=== PATIENT | female | born 2005 | race Caucasian/White ===

== ENCOUNTER 2024-10-31 08:29 | Inpatient (IN) ==
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
--- NOTE | 2024-10-31 08:39 | Emergency Department Note ---
Impression & Plan Acute hypoxic respiratory failure, Asthma with status asthmaticus, Cough ED Provider Note NAME: VASILIY RAJAN AGE: 19 SEX: F : 2005 ARRIVES VIA: Ambulance INFORMANT: Patient ED PROVIDER(S): Ziggy Lai DO CHIEF COMPLAINT: Shortness of breath HPI: Patient is a 19-year-old female with a past medical history of asthma, ADHD, borderline personality disorder, ulcerative colitis and cocaine abuse that presents to the ER for cough, congestion, shortness of breath which started last night. She notes it significantly worsened last night. She does have a history of asthma but does not have any nebs or inhalers at home as she has been having insurance issues. Denies any belly pain, nausea, vomiting or diarrhea. No dysuria, urgency or frequency. No recent trips, travel, coughing up blood, history of blood clots, history of clotting disorders or control. No recent surgery. Per EMS when they picked her up she was 80% on room air. ADDITIONAL HISTORY OBTAINED: Per HPI Chronic Medical/Social Conditions Affecting Care: Per HPI PAST MEDICAL HISTORY:See Below PAST SURGICAL HISTORY:See Below FAMILY HISTORY:See Below SOCIAL HISTORY:See Below HOME MEDICATIONS:See Below ALLERGIES:See Below VITALS:See Below PHYSICAL EXAMINATION: GENERAL: Sitting up in bed, alert, ill-appearing only able to speak in 2 word sentences, dyspneic EYE EXAM: normal conjunctiva. OROPHARYNX: no exudate, no erythema, lips, buccal mucosa, and tongue normal and mucous membranes are moist NECK: supple, no nuchal rigidity, no adenopathy, non-tender LUNGS: Wheezing bilaterally with poor air movement. Normal chest wall mechanics HEART: no murmurs, S1 normal and S2 normal ABDOMEN: abdomen soft, non-tender, normo-active bowel sounds, no masses, no rebound or guarding. UPPER EXTREMITIES: upper extremities are grossly normal. LOWER EXTREMITIES: No pitting edema. Calves are equal bilaterally NEURO EXAM: Normal sensorium, cranial nerves II-XII grossly intact, normal speech, no gross weakness of arms, no gross weakness of legs. MEDICAL DECISION MAKING: Patient is a 19-year-old female who presents ER for the above-stated complaint. IV was established and blood work was obtained. Upon arrival she was found to be hypoxic p.o. as well as EMS that she was 80% for EMS. Labs showed a leukocytosis 17,000. No significant anemia. BMP along with LFTs bilirubin and troponin was negative. Lipase was normal. She was placed on 4 L nasal cannula while here. Viral panel was positive for enterovirus. Chest x-ray was clean. She was given an hour-long DuoNeb treatment and IV Solu-Medrol. She felt significantly better. She was able to talk in full sentences at this time. Respiratory rate improved and she felt much more relaxed. She still remained on nasal cannula. Case was discussed with the hospitalist for further evaluation management and treatment. Consults/Care Managements Discussions: Per [facility] Triage Nursing notes reviewed. Limited review of prior medical records performed Vital Signs: reviewed and remarkable for hypoxic Differential diagnosis: Differential diagnoses includes but is not limited to pneumonia, bronchitis, COPD/Asthma exacerbation, pneumothorax, pulmonary embolism, congestive heart failure, acute coronary syndrome ER treatment provided: See below Diagnostics interpreted by me include EKG and cardiac monitoring as listed below: -Cardiac Monitoring: An order was placed for continuous cardiac monitoring. The monitor shows a rate of 101 with sinus rhythm. -ECG: Sinus rhythm rate 93 Normal axis No PVCs QTc 474 -Laboratory studies:Interpreted by me as stated above in MDM and shown below. Imaging studies: Xrays: As interpreted by me: Portable AP upright 1 view of the chest shows no focal infiltrate CTs show: None Procedures: None Critical Care: I have personally spent 45 minutes of critical care time in the direct management of this patient. This includes bedside care, interpretation of diagnostic studies, and testing, discussion with consultants, patient, and family members, and other required patient management activities. This 45 minutes is in excess of all separately billable procedures. Past Med/Surg History Problem List (Updated 10/31/24 @ 12:08 by Ziggy Lai DO) Cough (Acute) Asthma with status asthmaticus (Acute) Acute hypoxic respiratory failure (Acute) Asthma exacerbation Eosinophilia Laryngitis Cocaine abuse Asthma Current every day vaping Depression ADHD Borderline personality disorder Ulcerative colitis Syncopal episodes Medical History Asthma Surgical History History of tonsillectomy History of colonoscopy Family History Grandmother (Paternal) Cancer Breast cancer Grandmother (Maternal) Diabetes Denies family history of Ovarian cancer Prostate cancer Myocardial infarction Lung cancer Colorectal cancer Social History Smoking Status: Current every day smoker Tobacco Type: Cigarettes and E-cigarettes / Vaping Second Hand Exposure: Yes; Do You Dip or Chew Tobacco: No; Hx Alcohol Use: Yes Alcohol type: wine and hard liquor Alcohol Intake Frequency: Monthly or Less Hx Substance Use: Yes Non-Prescribed Medications: Marijuana Preferred Language: Slovak Communication Ability: Effective Visual Impairment: Limited Hearing Ability: Normal marital status: Single Current Living Situation Comment: roommates current occupational status: employed current occupation: [employer] How many Children do You have: 0 Feels Safe at Home: Yes Childhood Exposure to Second-Hand Smoke: Yes caffeine: Yes Dental Care, Regularly: No Physical Activity Frequency: 1-2 Times per Week Seatbelt Use: always Sunscreen Use: Yes Assistive Devices: Contacts and Glasses Allergies Allergies Allergy/AdvReac Type Severity Reaction Status Date / Time perfume Allergy Unknown Sneezing Unverified 04/25/24 08:50 No Known Drug Allergies Allergy Verified 03/23/24 16:13 Home Meds Home Medications Medication Instructions Recorded Confirmed aripiprazole 10 mg tablet (Abilify) 10 mg PO QPM 08/13/23 10/31/24 escitalopram oxalate 10 mg tablet 10 mg PO QPM 08/13/23 10/31/24 (Lexapro) mesalamine 1.2 gram tablet,delayed 2.4 g PO QAM 09/16/23 10/31/24 release lisdexamfetamine 70 mg capsule 70 mg PO QAM 04/25/24 10/31/24 (Vyvanse) Previous Rx's Medication Instructions Recorded albuterol sulfate 90 mcg/actuation 1 inh inhalation Q4H PRN shortness 09/20/24 aerosol inhaler of breath or wheezing #8.5 grams Results & Data (ED) Vital Signs Vital Signs - 24 hr 10/31/24 08:36 10/31/24 08:36 10/31/24 08:37 Pulse Rate 108 H Pulse Rate from SpO2 Sensor Respiratory Rate 34 H Respiratory Effort / Characteristics Labored Labored Respiratory Pattern Rapid/Shallow Blood Pressure 129/82 Blood Pressure Mean 97 Pulse Oximetry 89 L 89 L Oxygen Delivery Method Room Air Room Air Oxygen Flow Rate Sepsis Recent Fever Within 48 Hours No Sepsis New/Unexplained Change in Mental Status No Sepsis Action Taken by Nursing No Action Required Oxygen Flow Rate - Titration 3 Pulse Oximetry Post Tiitration 91 10/31/24 08:46 10/31/24 08:53 10/31/24 09:44 Pulse Rate 99 H Pulse Rate from SpO2 Sensor Respiratory Rate Respiratory Effort / Characteristics Respiratory Pattern Blood Pressure Blood Pressure Mean Pulse Oximetry 91 88 L Oxygen Delivery Method Nasal Cannula Room Air Oxygen Flow Rate 3 Sepsis Recent Fever Within 48 Hours Sepsis New/Unexplained Change in Mental Status Sepsis Action Taken by Nursing Oxygen Flow Rate - Titration 6 Pulse Oximetry Post Tiitration 98 10/31/24 10:03 10/31/24 10:14 10/31/24 10:33 Pulse Rate Pulse Rate from SpO2 Sensor Respiratory Rate Respiratory Effort / Characteristics Respiratory Pattern Blood Pressure Blood Pressure Mean Pulse Oximetry 95 94 89 L Oxygen Delivery Method Nebulizer Nasal Cannula Nasal Cannula Oxygen Flow Rate 6 3 3 Sepsis Recent Fever Within 48 Hours Sepsis New/Unexplained Change in Mental Status Sepsis Action Taken by Nursing Oxygen Flow Rate - Titration 3 5 Pulse Oximetry Post Tiitration 93 10/31/24 11:00 10/31/24 11:30 Pulse Rate 103 H 98 H Pulse Rate from SpO2 Sensor 102 H 101 H Respiratory Rate 18 23 Respiratory Effort / Characteristics Respiratory Pattern Blood Pressure 104/72 103/79 Blood Pressure Mean 82 87 Pulse Oximetry 92 95 Oxygen Delivery Method Oxymask Oxymask Oxygen Flow Rate 6 6 Sepsis Recent Fever Within 48 Hours Sepsis New/Unexplained Change in Mental Status Sepsis Action Taken by Nursing Oxygen Flow Rate - Titration Pulse Oximetry Post Tiitration Laboratory Data 10/31/24 08:45 10/31/24 08:45 Lab Results 10/31/24 10/31/24 Range/Units 08:45 08:50 WBC 17.34 H (4.8-10.8) K/ul RBC 5.28 (4.20-5.40) M/uL Hgb 15.5 (12.0-16.0) g/dl Hct 46.2 (37.0-47.0) % MCV 87.5 (80.0-100.0) fL MCH 29.4 (25.0-34.0) pg MCHC 33.5 (32.0-36.0) g/dL RDW Std Deviation 39.9 (36.4-46.3) fL RDW Coeff of Carlos 12.4 (11.5-14.5) % Plt Count 364 (130-400) K/uL MPV 10.0 (9.4-12.4) fL Immature Gran % (Auto) 0.5 % Neut % (Auto) 59.9 % Lymph % (Auto) 23.8 % [place]lin % (Auto) 6.7 % Eos % (Auto) 8.3 % Baso % (Auto) 0.8 % Neut # (Auto) 10.38 H (1.40-6.50) K/uL Lymph # (Auto) 4.13 H (1.20-3.40) K/uL [place] # (Auto) 1.17 H (0.11-0.59) K/uL Eos # (Auto) 1.44 H (0.00-0.50) K/uL Baso # (Auto) 0.14 (0.00-0.20) K/uL Immature Gran # (Auto) 0.08 (0.01-0.20) K/uL Sodium 140 (136-145) mmol/L Potassium 3.9 (3.5-5.1) mmol/L Chloride 105 (98-107) mmol/L Carbon Dioxide 29 (21-32) mmol/L Anion Gap 6 (3-11) BUN 12 (6-23) mg/dl Creatinine 0.83 (0.6-1.2) mg/dl Est Cr Clr Drug Dosing 113.7 ml/min eGFR 102.79 BUN/Creatinine Ratio 14.5 (10-20) Glucose 125 H (70-99(Fasting)) mg/dl Calcium 9.5 (8.6-10.3) mg/dl Total Bilirubin 0.6 (0.2-1.0) mg/dl AST 24 (13-39) U/L ALT 18 (7-52) U/L Alkaline Phosphatase 97 (34-104) U/L Troponin I High Sens 4.0 (0-14) pg/ml Total Protein 7.9 (6.0-8.3) gm/dl Albumin 4.6 (3.4-5.0) gm/dl Globulin 3.3 (2.5-4.0) gm/dl Albumin/Globulin Ratio 1.4 (0.9-2) Lipase 8 L (11-82) U/L Adenovirus (PCR) Not Detected (NotDetected) B. pertussis DNA (PCR) Not Detected (NotDetected) B.parapertussis DNA PCR Not Detected (NotDetected) C. pneumoniae DNA (PCR) Not Detected (NotDetected) Coronavirus OC43 (PCR) Not Detected (NotDetected) Coronavirus HKU1 (PCR) Not Detected (NotDetected) Coronavirus 229E (PCR) Not Detected (NotDetected) SARS-CoV-2 (PCR) Not Detected (NotDetected) Coronavirus NL63 (PCR) Not Detected (NotDetected) Human Metapneumovir PCR Not Detected (NotDetected) Influenza Type A (PCR) Not Detected (NotDetected) Influenza Type B (PCR) Not Detected (NotDetected) M. pneumoniae (PCR) Not Detected (NotDetected) Parainfluenza 1 (PCR) Not Detected (NotDetected) Parainfluenza 2 (PCR) Not Detected (NotDetected) Parainfluenza 3 (PCR) Not Detected (NotDetected) Parainfluenza 4 (PCR) Not Detected (NotDetected) RSV (PCR) Not Detected (NotDetected) Entero/Rhino (PCR) DETECTED A (NotDetected) Administered Medications Discontinued Medications Albuterol (Albut/Ipratrop 3mg/0.5mg Neb 3 Ml Vial) 12 ml NEB ONE ONE; Protocol Stop: 10/31/24 08:37 Last Admin: 10/31/24 08:53 Dose: 12 ml Documented By: DREW Methylprednisolone (Methylprednisolone 125 Mg/2 Ml Vial) 60 mg IV NOW STA Stop: 10/31/24 08:37 Last Admin: 10/31/24 08:53 Dose: 60 mg Documented By: DRWE Imaging Data Radiologist's Impression: Chest X-Ray 10/31/24 08:36 EXAM: Radiograph of the Chest 1 View INDICATION: Chest pain TECHNIQUE: Frontal view of the chest. COMPARISON: 04/25/2024 FINDINGS: Lungs and pleural spaces: No consolidation or pulmonary edema. No pleural effusion or pneumothorax. Heart: Shape and configuration within normal limits allowing for technique. Mediastinum: Normal contour. Bones/joints: No fracture, erosion or dislocation. Soft tissues: No abnormality noted. Nipple rings noted. Upper abdomen: No abnormality noted. IMPRESSION: No abnormality noted. ACT 112: N/A Electronically signed by Edwina Mendoza 10-31-2024 09:57 AM Discharge Plan Visit Data Chief Complaint: Asthma Stated Complaint: RESP. DISTRESS ED Provider: Ziggy Lai Discharge Problem: Acute hypoxic respiratory failure, Asthma with status asthmaticus, Cough Forms Stand Alone Forms: [employer] Prescriptions Prescriptions: No Action albuterol sulfate 90 mcg/actuation HFA aerosol inhaler 1 inh inhalation Q4H PRN (Reason: shortness of breath or wheezing) Qty: 8.5 0RF aripiprazole [Abilify] 10 mg tablet 10 mg PO QPM escitalopram oxalate [Lexapro] 10 mg tablet 10 mg PO QPM lisdexamfetamine [Vyvanse] 70 mg Capsule 70 mg PO QAM mesalamine 1.2 gram Tablet,Delayed Release (Dr/Ec) 2.4 g PO QAM Referrals Referrals: Walter Parra CRNP [Primary Care Provider] - Discharge Problem: Asthma with status asthmaticus Qualifiers: Asthma severity: mild Asthma persistence: unspecified Qualified Code(s): J 45.902 - Unspecified asthma with status asthmaticus Cough Qualifiers: Cough type: unspecified Qualified Code(s): R05.9 - Cough, unspecified
[2024-10-31] MEDS: ALBUT/IPRATROP 3MG/0.5MG NEB 3 ML VIAL NEB ONE (08:53)
[2024-10-31] MEDS: methylPREDNISolone 125 MG/2 ML VIAL IV STA (08:53)
[2024-10-31 08:57] LABS: Basophils # (auto) 0.14 K/uL (0.00-0.20); Basophils % (auto) 0.8 %; Eosinophils # (auto) 1.44 K/uL (0.00-0.50); Eosinophils % (auto) 8.3 %; Hematocrit (blood only) 46.2 % (37.0-47.0); Hemoglobin 15.5 g/dl (12.0-16.0); Immature Granulocytes # (auto) 0.08 K/uL (0.01-0.20); Immature Granulocytes % (auto) 0.5 %; Lymphocytes # (auto) 4.13 K/uL (1.20-3.40); Lymphocytes % (auto) 23.8 %; Mean Corpuscular Hemoglobin 29.4 pg (25.0-34.0); Mean Corpuscular Hgb Conc 33.5 g/dL (32.0-36.0); Mean Corpuscular Volume 87.5 fL (80.0-100.0); Monocytes # (auto) 1.17 K/uL (0.11-0.59); Monocytes % (auto) 6.7 %; Neutrophils # (auto) 10.38 K/uL (1.40-6.50); Neutrophils % (auto) 59.9 %; Platelet Count 364 K/uL (130-400); RDW Coefficient of Variation 12.4 % (11.5-14.5); RDW Standard Deviation 39.9 fL (36.4-46.3); Red Blood Count 5.28 M/uL (4.20-5.40); White Blood Count 17.34 K/ul (4.8-10.8)
[2024-10-31 09:14] LABS: Albumin Globulin Ratio 1.4 (0.9-2); Albumin Level 4.6 gm/dl (3.4-5.0); BUN Creatinine Ratio 14.5 (10-20); Bilirubin,Total 0.6 mg/dl (0.2-1.0); Calcium 9.5 mg/dl (8.6-10.3); Creatinine Clr Calc Pharmacy 113.7 ml/min; Globulin 3.3 gm/dl (2.5-4.0); Potassium 3.9 mmol/L (3.5-5.1); Total Protein 7.9 gm/dl (6.0-8.3)
[2024-10-31 09:53] LABS: Adenovirus PCR Not Detected (NotDetected); Bordetella parapertussis PCR Not Detected (NotDetected); Bordetella pertussis PCR Not Detected (NotDetected); Chlamydia pneumoniae PCR Not Detected (NotDetected); Coronavirus 229E PCR Not Detected (NotDetected); Coronavirus CoV-2 (COVID19)PCR Not Detected (NotDetected); Coronavirus HKU1 PCR Not Detected (NotDetected); Coronavirus NL63 PCR Not Detected (NotDetected); Coronavirus OC43PCR Not Detected (NotDetected); Human Metapneumovirus PCR Not Detected (NotDetected); Influenza A PCR Not Detected (NotDetected); Influenza B PCR Not Detected (NotDetected); Mycoplasma pneumoniae PCR Not Detected (NotDetected); Parainfluenza Virus 1 PCR Not Detected (NotDetected); Parainfluenza Virus 2 PCR Not Detected (NotDetected); Parainfluenza Virus 3 PCR Not Detected (NotDetected); Parainfluenza Virus 4 PCR Not Detected (NotDetected); Respiratory Syncytial VirusPCR Not Detected (NotDetected); Rhinovirus/Enterovirus PCR DETECTED (NotDetected)
--- NOTE | 2024-10-31 09:57 | XRay Report ---
EXAM: Radiograph of the Chest 1 View INDICATION: Chest pain TECHNIQUE: Frontal view of the chest. COMPARISON: 04/25/2024 FINDINGS: Lungs and pleural spaces: No consolidation or pulmonary edema. No pleural effusion or pneumothorax. Heart: Shape and configuration within normal limits allowing for technique. Mediastinum: Normal contour. Bones/joints: No fracture, erosion or dislocation. Soft tissues: No abnormality noted. Nipple rings noted. Upper abdomen: No abnormality noted. IMPRESSION: No abnormality noted. ACT 112: N/A Electronically signed by Edwina Mendoza 10-31-2024 09:57 AM
--- NOTE | 2024-10-31 10:10 | History & Physical Report ---
Date of Service October 31, 2024 Assessment & Plan (1) Asthma exacerbation: Plan: * Patient with history of childhood asthma that has persisted into adulthood. No prior hospitalizations or mechanical ventilation for asthma * Spirometry 05/18/2024 with mild obstructive lung dysfunction. FVC 4.50 L 111%, FEV1 3.08 L 87%, FEV1/FVC 68% * Patient does vape THC. * Received hour-long nebulizer treatment as well as supplemental oxygen as well as steroids with some improvement but persistent global bronchospasm * Will continue with IV steroids 60 mg daily * Magnesium 1 g IV now x 1 * No indication for antibiotics at this time * Add montelukast p.o. daily and Advair discus twice daily while inpatient * Continue with DuoNebs every 6 hours and as needed * Recommend discharging on Advair discus 115/21 2 puffs daily as well as montelukast (Singulair) 10 mg p.o. daily * Follow-up with pulmonary on discharge (2) Enterovirus infection: Plan: * With sepsis, POA with tachycardia, hypoxemia, leukocytosis. Chest x-ray negative for pneumonia * With asthma exacerbation being treated as noted above (3) Eosinophilia: Plan: * This is chronic. Eosinophil count in April 2024 was 1030 * No evidence of pneumonia on examination or on x-ray * Patient with seasonal allergies which could explain her increased eosinophils * Will trend CBC with differential while inpatient (4) Laryngitis: Plan: * Laryngoscopy with ENT on 07/28/2024 with inflammation suspected be secondary to smoking and vaping * No stridor on examination * Patient will be on steroids daily for asthma exacerbation * Follow-up with ENT on discharge (5) Cocaine abuse: Plan: * Last used 2 to 3 weeks ago. * Encouraged abstinence * Follow on telemetry while inpatient (6) Current every day vaping: Plan: * Patient with marijuana card and vaping THC. Discussed importance of not introducing irritants to the pulmonary system. Patient reports she understands and that she has been using Gummies lately. * Continue complete abstinence of all inhaled products including cigarettes and vaping. (7) Ulcerative colitis: Plan: * Continue mesalamine, no acute issues (8) ADHD: Plan: * No acute issues, continue Vyvanse (9) Depression: Plan: * No acute issues, continue Lexapro, Abilify Plan DVT prophylaxis: Bilateral knee-high Dutch hose, enoxaparin 40 mg subcu daily Activity as tolerated Diet regular Encourage ambulation in the hallways as tolerated History of Present Illness Chief Complaint: Shortness of breath, asthma exacerbation Primary Care Provider: GEO Glover Attending: Dr. 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 She reports a 3 to 4-week history of increased cough with laryngitis. She was seen by ENT who said that she had irritation of her vocal cords but did not treat with anything. She has a history of childhood asthma that has been fairly well-controlled. She has only ever used an albuterol inhaler with no maintenance inhaler in the past. Patient reports that shortness of breath acutely started last evening and was progressively worse until this morning when she called EMS. She was found to have an SPO2 of 80% on room air and was treated with steroids and hour-long nebulizer treatment. She reports that she feels improvement but is still on supplemental oxygen to maintain SpO2 greater than 90%. Patient has followed with Dr. Colin from the pulmonary division was most recently seen 05/18/2024. According to his note, patient was to be started on Advair twice daily as well as montelukast daily. She reports that she never started this. Patient does have a history of cocaine use recreationally. She most recently used it 2 or 3 weeks ago. Patient also vapes marijuana and uses marijuana Gummies. She no longer smokes cigarettes. She denies any other environmental exposure other than seasonal allergens. Allergies Allergy/AdvReac Type Severity Reaction Status Date / Time perfume Allergy Unknown Sneezing Unverified 04/25/24 08:50 No Known Drug Allergies Allergy Verified 03/23/24 16:13 Home Medications Medication Instructions Recorded Confirmed Type aripiprazole 10 mg tablet (Abilify) 10 mg PO QPM 08/13/23 10/31/24 History escitalopram oxalate 10 mg tablet 10 mg PO QPM 08/13/23 10/31/24 History (Lexapro) mesalamine 1.2 gram tablet,delayed 2.4 g PO QAM 09/16/23 10/31/24 History release lisdexamfetamine 70 mg capsule 70 mg PO QAM 10/20/24 04/27/25 History (Vyvanse) albuterol sulfate 90 mcg/actuation 1 inh inhalation Q4H PRN shortness 09/20/24 10/31/24 Rx aerosol inhaler of breath or wheezing #8.5 grams Past Med/Surg History Problem List (Updated 10/31/24 @ 14:42 by Monse Ohara MD) Enterovirus infection Cough (Acute) Asthma with status asthmaticus (Acute) Acute hypoxic respiratory failure (Acute) Asthma exacerbation Eosinophilia Laryngitis Cocaine abuse Asthma Current every day vaping Depression ADHD Borderline personality disorder Ulcerative colitis Syncopal episodes Medical History Asthma Surgical History History of tonsillectomy History of colonoscopy Family History Grandmother (Paternal) Cancer Breast cancer Grandmother (Maternal) Diabetes Denies family history of Ovarian cancer Prostate cancer Myocardial infarction Lung cancer Colorectal cancer Social History (Updated 10/31/24 @ 14:41 by Monse Ohara MD) Smoking Status: Former smoker Tobacco Type: Cigarettes and E-cigarettes / Vaping Second Hand Exposure: Yes; Do You Dip or Chew Tobacco: No; Hx Alcohol Use: No Hx Substance Use: Yes Non-Prescribed Medications: Crack / Cocaine and Marijuana Preferred Language: Tajik Communication Ability: Effective Visual Impairment: Limited Hearing Ability: Normal Chair Caner Required: No Beliefs That Will Affect Care: None marital status: Single Current Living Situation: Other Current Living Situation Comment: apartment with roommates current occupational status: employed current occupation: [employer] How many Children do You have: 0 Feels Safe at Home: Yes Childhood Exposure to Second-Hand Smoke: Yes caffeine: Yes Dental Care, Regularly: No Physical Activity Frequency: 1-2 Times per Week Seatbelt Use: always Sunscreen Use: Yes Assistive Devices: Contacts and Glasses Review of Systems 2 Review of Systems: A total of 10 systems was reviewed and is negative other than as listed in the HPI Physical Exam 2 Physical Exam: GENERAL : No acute distress EYES: No icterus, gaze conjugate NOSE: No evidence of epistaxis. Nasal cannula is in place and secured MOUTH: No lesions or candidiasis NECK: Supple. No appreciation of stridor LUNGS: Diffuse bronchospasm in all merrill anterior and posterior. No rhonchi appreciated. No decrease in breath sounds. HEART: Regular, Tachycardic ABDOMEN: Soft, NT, ND, BS Present EXTREMITIES: No LE edema, pedal pulses intact. Negative Homans' sign bilaterally NEURO: A&OX3 Results & Data Results & Data Vital Signs (Past 12 Hours) Vital Signs Pulse Resp BP Pulse Ox O2 Del Method O2 Flow Rate 10/31/24 10:03 95 Nebulizer 6 10/31/24 09:44 88 L Room Air 10/31/24 08:53 91 Nasal Cannula 3 10/31/24 08:46 99 H 10/31/24 08:37 89 L Room Air 10/31/24 08:36 108 H 34 H 129/82 89 L Room Air Laboratory Results 10/31/24 08:45 10/31/24 08:45 Laboratory Tests 10/31/24 08:45 Eos # (Auto) 1.44 H Diagnostic Findings Chest X-Ray 10/31/24 08:36 EXAM: Radiograph of the Chest 1 View INDICATION: Chest pain TECHNIQUE: Frontal view of the chest. COMPARISON: 04/25/2024 FINDINGS: Lungs and pleural spaces: No consolidation or pulmonary edema. No pleural effusion or pneumothorax. Heart: Shape and configuration within normal limits allowing for technique. Mediastinum: Normal contour. Bones/joints: No fracture, erosion or dislocation. Soft tissues: No abnormality noted. Nipple rings noted. Upper abdomen: No abnormality noted. IMPRESSION: No abnormality noted. ACT 112: N/A Electronically signed by Edwina Mendoza 10-31-2024 09:57 AM ECG Additional Comments: Code Status & VTE Plan VTE Prophylaxis Plan VTE Prophylaxis will be ordered: Yes Supervising Physician Co-Signing Physician Notes PA Supervision Note: I personally saw and examined the patient. I verified all vasquez points and agree with MOISÉS Cummings with the following exceptions and/or additions: S-this patient is a 19-year-old female with a history of asthma, ulcerative colitis, THC use, cocaine abuse, depression, ADHD, who presents with worsening shortness of breath and sore throat x 1 to 2 days. She was found to have a pulse ox of 80% on room air by EMS and was tachypneic. She was given IV steroids, bronchodilator nebulizers, and had improvement but was requiring 6 L oxygen mask when she was admitted. She denies fevers or chills or productive cough. She does have a mild sore throat but no other symptoms. She tested positive for rhino/enterovirus in the ER. History and ROS otherwise reviewed as above O- Vitals reviewed Gen: AAOx3, NAD HEENT: Anicteric sclerae, EOMI, oropharynx clear no erythema or enlarged tonsils, no cervical lymphadenopathy CV: RRR no mgr nl S1S2 Pulm: Positive diffuse expiratory wheezes, poor air movement in the lower lung merrill bilaterally, no crackles Abd: +BS soft NT ND no masses or hernias Ext: No edema, 2+ DP pulses Skin: No rashes, warm/dry Neuro: Full strength throughout CBC, BMP, LFTs, troponin, lipase, BioFire, chest x-ray reviewed. ECG reviewed A/E-[id number]-old female here with entero-/rhinovirus and acute asthma exacerbation with acute respiratory failure with severe hypoxemia requiring 6 L O2. - Give 1 g IV magnesium - Continue DuoNebs scheduled, IV steroids, and start long-acting LABA/ICS in addition to daily Singulair - For hoarseness of the voice and daily a.m. nausea, trial of Protonix once daily in case laryngitis caused by reflux. Also check TSH although no discrete thyroid nodules noted on exam. - Check hCG given morning nausea PG Care Time/CCT Total # of Minutes Spent Total Time Spent with Patient: Total time spent is greater than 50% in coordination of care (as documented) at patient's floor/unit and/or counseling patient: 45 minutes Coding Level of Care Code 10226 INT INP/OBS CARE MIN Diagnoses Moderate persistent asthma with exacerbation J45.41 Asthma persistence: persistent Asthma severity: moderate Enterovirus infection B34.1 Eosinophilia, unspecified type D72.10 Eosinophilia type: unspecified eosinophilia Laryngitis J04.0 Cocaine abuse F14.10 Current every day vaping Z72.89 Ulcerative colitis K51.90 ADHD F90.9 Depression F32.A Time Spent (min) 45 (1) Asthma exacerbation Asthma persistence: persistent Asthma severity: moderate Qualified Code(s): J45.41 - Moderate persistent asthma with (acute) exacerbation (3) Eosinophilia Eosinophilia type: unspecified eosinophilia Qualified Code(s): D72.10 - Eosinophilia, unspecified
[2024-10-31] MEDS ORDERED: ALUMINUM/MAGNESIUM SUSP 30 ML UDC PO PRN (12:40)
[2024-10-31] MEDS ORDERED: POLYETHYLENE (MIRALAX) 17 GM PACK PO PRN (12:40)
[2024-10-31] MEDS ORDERED: MAGNESIUM HYDROXIDE SUSP 30 ML UDC PO PRN (12:40)
[2024-10-31] MEDS ORDERED: ACETAMINOPHEN 325 MG TAB PO PRN (12:40)
[2024-10-31] MEDS ORDERED: ONDANSETRON INJ 2 MG/ML 2 ML VIAL IV PRN (12:40)
--- NOTE | 2024-10-31 13:27 | Electrocardiogram Report ---
Test Reason : Blood Pressure : */* mmHG Vent. Rate : 93 BPM Atrial Rate : 93 BPM P-R Int : 136 ms QRS Dur : 94 ms QT Int : 382 ms P-R-T Axes : 56 92 61 degrees QTcB Int : 474 ms Normal sinus rhythm with sinus arrhythmia Rightward axis Probable Normal ECG When compared with ECG of 25-Apr-2024 07:17, No significant change was found Confirmed by Catrachito Garcia ([id number]) on 10/31/2024 1:27:22 PM Referred By: Confirmed By: Catrachito Garcia
[2024-10-31] MEDS: MONTELUKAST SODIUM 10 MG TABLET PO SCH (13:50)
[2024-10-31] MEDS: ENOXAPARIN INJ 40 MG/0.4 ML SYR SQ SCH (13:50)
[2024-10-31] MEDS: MAGNESIUM SULFATE / D5W 1 GM/100 ML BAG IV ONE (13:50)
[2024-10-31] MEDS: PANTOprazole 40 MG TAB PO SCH (13:51)
[2024-10-31] MEDS: FLUTICASONE/VILANTEROL 100/25MCG 14 PUFFS/INHALER INH SCH (13:51)
[2024-10-31] MEDS: ALBUT/IPRATROP 3MG/0.5MG NEB 3 ML VIAL NEB SCH (14:42)
[2024-10-31 15:24] LABS: Pregnancy Test, Serum Negative (Negative)
[2024-10-31] MEDS ORDERED: ALBUT/IPRATROP 3MG/0.5MG NEB 3 ML VIAL NEB PRN (19:21)
[2024-10-31] MEDS: ARIPiprazole 10 MG TAB PO SCH (20:06)
[2024-10-31] MEDS: ESCITALOPRAM OXALATE 10 MG TAB PO SCH (20:06)
[2024-11-01 07:05] LABS: Basophils # (auto) 0.06 K/uL (0.00-0.20); Basophils % (auto) 0.3 %; Eosinophils # (auto) 0.09 K/uL (0.00-0.50); Eosinophils % (auto) 0.5 %; Hematocrit (blood only) 41.7 % (37.0-47.0); Hemoglobin 13.9 g/dl (12.0-16.0); Immature Granulocytes # (auto) 0.12 K/uL (0.01-0.20); Immature Granulocytes % (auto) 0.6 %; Lymphocytes # (auto) 2.81 K/uL (1.20-3.40); Lymphocytes % (auto) 14.6 %; Mean Corpuscular Hemoglobin 29.6 pg (25.0-34.0); Mean Corpuscular Hgb Conc 33.3 g/dL (32.0-36.0); Mean Corpuscular Volume 88.9 fL (80.0-100.0); Mean Platelet Volume 10.2 fL (9.4-12.4); Monocytes # (auto) 1.48 K/uL (0.11-0.59); Monocytes % (auto) 7.7 %; Neutrophils # (auto) 14.64 K/uL (1.40-6.50); Neutrophils % (auto) 76.3 %; Platelet Count 359 K/uL (130-400); RDW Coefficient of Variation 12.7 % (11.5-14.5); RDW Standard Deviation 41.1 fL (36.4-46.3); Red Blood Count 4.69 M/uL (4.20-5.40)
[2024-11-01 07:30] LABS: BUN Creatinine Ratio 18.5 (10-20); Calcium 9.1 mg/dl (8.6-10.3); Creatinine Clr Calc Pharmacy 145.2 ml/min; Magnesium 2.1 mg/dl (1.7-2.4); Potassium 3.9 mmol/L (3.5-5.1)
[2024-11-01 07:45] LABS: Thyroid Stimulating Hormone 0.294 uIu/ml (0.300-4.500)
--- NOTE | 2024-11-01 07:51 | XRay Report ---
EXAM: XR chest 1V portable CLINICAL HISTORY: Hypoxia. TECHNIQUE: An X-ray image of the chest is obtained in AP projection. COMPARISON: CR 10/31/2024. FINDINGS: Pulmonary Parenchyma: Interval mild increase in the bilateral prominent bronchovascular markings, more noted in the lower lung zones. Possibly mild pulmonary congestion or bronchitis. Please correlate clinically. No evidence of consolidation, collapse, or focal opacities. No pulmonary nodules are identified. No evidence of pleural effusion or pleural thickening. Heart and Mediastinum: Heart size and shape are normal. No mediastinal widening or masses. No hilar or mediastinal lymphadenopathy. Bony Thorax: Bony thorax appears intact without fractures or deformities. Soft Tissues: Soft tissues overlying the chest wall are unremarkable. IMPRESSION: 1. Interval mild increase in the bilateral prominent bronchovascular markings, more noted in the lower lung zones. Possibly mild pulmonary congestion or bronchitis. Please correlate clinically. 2. Compared to CR 10/31/2024. Mild progression. Electronically signed by Allan Jimenes 11-01-2024 07:50 AM
[2024-11-01 08:20] LABS: T4 Free Thyroxine 0.75 ng/dl (0.61-1.60)
[2024-11-01] MEDS: methylPREDNISolone 60 MG in SYRINGE 0 ML IV SCH (08:27)
[2024-11-01] MEDS ORDERED: methylPREDNISolone 1000 MG/16 ML IV SCH (09:00)
--- NOTE | 2024-11-01 09:06 | Hospitalist Progress Note ---
Date of Service November 01, 2024 Assessment & Plan (1) Asthma exacerbation: Plan: * Patient with history of childhood asthma that has persisted into adulthood. No prior hospitalizations or mechanical ventilation for asthma * Spirometry 05/18/2024 with mild obstructive lung dysfunction. FVC 4.50 L 111%, FEV1 3.08 L 87%, FEV1/FVC 68% * Patient does vape THC. * Received hour-long nebulizer treatment as well as supplemental oxygen as well as steroids with some improvement but persistent global bronchospasm * IV steroids 60 mg daily * Magnesium 1 g IV now x 1 * No indication for antibiotics at this time, CXR without pneumonia * Add montelukast p.o. daily and Advair discus twice daily while inpatient * Continue with DuoNebs every 6 hours and as needed * consider discharging on Advair discus 115/21 2 puffs daily as well as montelukast (Singulair) 10 mg p.o. daily * Follow-up with pulmonary on discharge (2) Enterovirus infection: Plan: * With sepsis, POA with tachycardia, hypoxemia, leukocytosis. Chest x-ray negative for pneumonia * With asthma exacerbation being treated as noted above (3) Eosinophilia: Plan: * This is chronic. Eosinophil count in April 2024 was 1030 * No evidence of pneumonia * Patient with seasonal allergies which could explain her increased eosinophils (4) Laryngitis: Plan: * Laryngoscopy with ENT on 07/28/2024 with inflammation suspected be secondary to smoking and vaping * No stridor on examination * Patient will be on steroids daily for asthma exacerbation * Follow-up with ENT on discharge (5) Cocaine abuse: Plan: * Last used 2 to 3 weeks ago. * Encouraged abstinence * Follow on telemetry while inpatient (6) Current every day vaping: Plan: * Patient with marijuana card and vaping THC. Discussed importance of not introducing irritants to the pulmonary system. Patient reports she understands and that she has been using Gummies lately. * Continue complete abstinence of all inhaled products including cigarettes and vaping. (7) Ulcerative colitis: Plan: * Continue mesalamine, no acute issues (8) ADHD: Plan: * No acute issues, continue Vyvanse (9) Depression: Plan: * No acute issues, continue Lexapro, Abilify Plan DVT prophylaxis: Bilateral knee-high Dutch hose, enoxaparin 40 mg subcu daily Admission and Anticipated Discharge Date Admission Date: October 31, 2024 Results & Data Results & Data Vital Signs (Past 12 Hours) Vital Signs Temp Pulse Pulse Resp BP BP Pulse Ox 11/01/24 07:57 94 H 11/01/24 07:37 97.9 F 71 18 106/64 98 11/01/24 07:15 75 16 92 11/01/24 04:42 95 11/01/24 04:09 98.1 F 70 16 118/71 98 10/31/24 22:33 98.8 F 89 18 130/69 93 10/31/24 22:22 10/31/24 22:02 93 H Pulse Ox O2 Del Method O2 Del Method O2 Flow Rate O2 Flow Rate 11/01/24 07:57 11/01/24 07:37 Room Air 11/01/24 07:15 Nasal Cannula 2.5 11/01/24 04:42 Nasal Cannula 3 11/01/24 04:09 Nasal Cannula 10/31/24 22:33 Room Air 10/31/24 22:22 93 Nasal Cannula 5 10/31/24 22:02 PG Care Time/CCT Total # of Minutes Spent Total Time Spent with Patient: Total time spent is greater than 50% in coordination of care (as documented) at patient's floor/unit and/or counseling patient: Coding Diagnoses Moderate persistent asthma with exacerbation J45.41 Asthma severity: moderate Asthma persistence: persistent Enterovirus infection B34.1 Eosinophilia, unspecified type D72.10 Eosinophilia type: unspecified eosinophilia Laryngitis J04.0 Cocaine abuse F14.10 Current every day vaping Z72.89 Ulcerative colitis K51.90 ADHD F90.9 Depression F32.A (1) Asthma exacerbation Asthma severity: moderate Asthma persistence: persistent Qualified Code(s): J45.41 - Moderate persistent asthma with (acute) exacerbation (3) Eosinophilia Eosinophilia type: unspecified eosinophilia Qualified Code(s): D72.10 - Eosinophilia, unspecified
[2024-11-01 11:35] VITALS: TEMP 98.4
[2024-11-01 15:39] VITALS: PULSE 115; RESP 22; O2SAT 90
[2024-11-01 16:11] VITALS: BP 121/78
--- NOTE | 2024-11-01 16:12 | Discharge Summary ---
Discharge Summary Date of Service November 01, 2024 Principal Dx & Hospital Course #1 = Principal Diagnosis (1) Asthma exacerbation: * Patient with history of childhood asthma that has persisted into adulthood. No prior hospitalizations or mechanical ventilation for asthma * Spirometry 05/18/2024 with mild obstructive lung dysfunction. FVC 4.50 L 111%, FEV1 3.08 L 87%, FEV1/FVC 68% * Patient does vape THC, counselled about cessation * steroids with some improvement but persistent global bronchospasm CXR without pneumonia no antibiotics used * will discharge on prednisone taper and Breo elipta or equivalent (2) Enterovirus infection: * supporitve care, recommend additional day off (3) Eosinophilia: * This is chronic. Eosinophil count in April 2024 was 1030 * No evidence of pneumonia * Patient with seasonal allergies which could explain her increased eosinophils (4) Laryngitis: * Laryngoscopy with ENT on 07/28/2024 with inflammation suspected be secondary to smoking and vaping * No stridor on examination * Patient will be on steroids daily for asthma exacerbation * Follow-up with ENT on discharge (5) Cocaine abuse: * Last used 2 to 3 weeks ago. * Encouraged abstinence * Follow on telemetry while inpatient (6) Ulcerative colitis: * Continue mesalamine, no acute issues (7) ADHD: * No acute issues, continue Vyvanse (8) Depression: * No acute issues, continue Lexapro, Abilify Notes For Next Care Provider Cost of inhalers may be a limitation for this patient patient also was not started on Singulair but may be considered once she improves after steroid taper. Strong reinforcement for discontinuation of vaping. Admission HPI Per Admitting Provider Attending: Dr. 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 She reports a 3 to 4-week history of increased cough with laryngitis. She was seen by ENT who said that she had irritation of her vocal cords but did not treat with anything. She has a history of childhood asthma that has been fairly well-controlled. She has only ever used an albuterol inhaler with no maintenance inhaler in the past. Patient reports that shortness of breath acutely started last evening and was progressively worse until this morning when she called EMS. She was found to have an SPO2 of 80% on room air and was treated with steroids and hour-long nebulizer treatment. She reports that she feels improvement but is still on supplemental oxygen to maintain SpO2 greater than 90%. Patient has followed with Dr. Colin from the pulmonary division was most rece ntly seen 05/18/2024. According to his note, patient was to be started on Advair twice daily as well as montelukast daily. She reports that she never started this. Patient does have a history of cocaine use recreationally. She most recently used it 2 or 3 weeks ago. Patient also vapes marijuana and uses marijuana Gummies. She no longer smokes cigarettes. She denies any other environmental exposure other than seasonal allergens. Discharge Exam Patient with only mild expiratory wheezes but does have some dysphonia from vocal cord dysfunction Patient had 2 step prior to discharge and is comfortable going home Discharge Plan Discharge Items Patient Disposition: Home - Self-Care Reason For Visit: ASTHMA EXACERBATION, EOSINOPHILIA Discharge Diagnosis: asthma exacerbation elevated eosinophilia level Activity: Per Instructions section Activity Comment: please take another day off return to work 11/03/24 Non-emergency contact: Primary Care Provider Call non-emergency contact if: your symptoms worsen Follow-up/Referrals: Walter Parra CRNP [Primary Care Provider] - 11/08/24 9:30 am Diet: Regular Addtl Attending Provider Instructions: please continue on your journey to not vape or smoke taper your antibiotics and discuss with Walter Parra about a possible Pulmonary medicine referral if you have persistent issues Pending Studies at Discharge: No Stand-Alone Forms: [facility] [employer] Interactive, Smoking Cessation Medications and DC Order Prescriptions: New fluticasone furoate-vilanterol [Breo Ellipta] 100-25 mcg/dose Blister With Device 1 inh inhalation DAILY Qty: 1 2RF prednisone 10 mg tablet 10 mg PO DIRECTED Qty: 40 0RF Rx Instructions: 4 a day x 4 d>3 a day x 4 d>2 a day x 4 d>1 a day Continued albuterol sulfate 90 mcg/actuation HFA aerosol inhaler 1 inh inhalation Q4H PRN (Reason: shortness of breath or wheezing) Qty: 8.5 0RF aripiprazole [Abilify] 10 mg tablet 10 mg PO QPM escitalopram oxalate [Lexapro] 10 mg tablet 10 mg PO QPM lisdexamfetamine [Vyvanse] 70 mg Capsule 70 mg PO QAM mesalamine 1.2 gram Tablet,Delayed Release (Dr/Ec) 2.4 g PO QAM Discharge Orders: Discharge Order (Routine); Ordered 11/01/24 Ordered By: Chaitanya Porras Admission Data Admit Date/Time: 10/31/24 10:42 Attending Provider: Chaitanya Porras Admit Provider: Monse Ohara Primary Care Provider: Walter Parra Other Providers: Monse Ohara Hospital Stay Data Consultations 10/31/24 09:38 ED Decision to Admit Stat Pending Results Patient Have Any Pending Studies at Discharge: No Discharge Instructions Given to Patient (Per Discharging Provider) please continue on your journey to not vape or smoke taper your antibiotics and discuss with Walter Parra about a possible Pulmonary medicine referral if you have persistent issues Total Time Total Time Spent Total Time Spent (In Minutes): It required greater than 30 minutes to prepare this patient for discharge. Coding Level of Care Code 22522 INP/OBS DISCH >30 MIN Diagnoses Moderate persistent asthma with exacerbation J45.41 Asthma severity: moderate Asthma persistence: persistent Enterovirus infection B34.1 Eosinophilia, unspecified type D72.10 Eosinophilia type: unspecified eosinophilia Laryngitis J04.0 Cocaine abuse F14.10 Ulcerative colitis K51.90 ADHD F90.9 Depression F32.A
== END 2024-11-01 16:46 | disposition home or self-care (01) | DRG 871 ==
LOC: ED 08:29 → 2W 10:42 → SUATTDRO 10:42 → 2W 12:09

== ENCOUNTER 2025-02-09 04:09 | Inpatient (IN) ==
[2025-02-09] MEDS ORDERED: PROPOFOL BOLUS FROM BAG IV PRN (04:12)
[2025-02-09] MEDS ORDERED: STAT IV/IM STA (04:29)
[2025-02-09] MEDS: SODIUM BICARB 8.4% INJ 50 MEQ/50 ML SYR IV STA (04:34)
--- NOTE | 2025-02-09 04:34 | History & Physical Report ---
Date of Service February 09, 2025 Assessment & Plan (1) Respiratory arrest: (2) Asthma exacerbation: (3) ADHD: Plan 20-year-old female with history of asthma, respiratory status progressively worsening over the last several days, patient presents with respiratory arrest status post intubation mechanical ventilation #Respiratory arrest/asthma/status asthmaticuspatient intubated, sedated. Patient with hypercapnia, improving (pCO2 = 74 at present) Admit to MICU Propofol, ketamine, Versed drips for pain control and sedation Continue mechanical ventilation, permissive hypercapnia albuterol neb every 6 hours Albuterol every 2 hours as needed Continue Breo Solu-Medrol 40 mg IV 3 times daily Repeat VBG #Elevated blood sugarno history of diabetes. Patient was just given steroids Check hemoglobin A1c ICU protocol for hypoglycemia #ADHD/anxiety/depression/mental health Continue Abilify 10 mg p.o. every afternoon Continue escitalopram 10 mg p.o. every afternoon #Ulcerative colitis Continue mesalamine History of Present Illness Chief Complaint: respiratory arrest Primary Care Provider: GEO Glover Karina Moss is a 20-year-old female with history of asthma presenting with respiratory arrest. Patient has been having status over the last several days. EMS was called this evening due to worsening shortness of breath. Patient did have respiratory arrest prior to arrival. In the ER she is intubated and sedated Allergies Allergy/AdvReac Type Severity Reaction Status Date / Time nickel Allergy Intermediate Rash Unverified 01/17/25 13:31 perfume Allergy Unknown Sneezing Unverified 01/17/25 13:31 No Known Drug Allergies Allergy Verified 01/17/25 13:31 Home Medications Medication Instructions Recorded Confirmed Type aripiprazole 10 mg tablet (Abilify) 10 mg PO QPM 08/13/23 01/17/25 History escitalopram oxalate 10 mg tablet 10 mg PO QPM 08/13/23 01/17/25 History (Lexapro) lisdexamfetamine 70 mg capsule 70 mg PO QAM 04/25/24 01/17/25 History (Vyvanse) mesalamine 1.2 gram tablet,delayed 2.4 g (2 x 1.2 gram) PO QAM #90 12/20/24 01/17/25 Rx release tabs albuterol sulfate 90 mcg/actuation 1 inh inhalation Q4H PRN shortness 06/17/25 07/14/25 Rx aerosol inhaler of breath or wheezing #8.5 grams sulfamethoxazole 800 1 tab PO BID #20 tabs 01/15/25 01/17/25 Rx mg-trimethoprim 160 mg tablet (Bactrim DS) fluticasone furoate 100 1 inh inhalation DAILY #1 inhaler 01/17/25 01/17/25 Rx mcg-vilanterol 25 mcg/dose inhalation powder (Breo Ellipta) albuterol sulfate 90 mcg/actuation 2 inh inhalation Q4H PRN shortness 02/04/25 Rx aerosol inhaler of breath or wheezing #8.5 grams methylprednisolone 4 mg tablets in See Rx Instructions .Route 02/04/25 Rx a dose pack (Medrol (Olaf)) .COMPLEX #21 ea Past Med/Surg History Problem List Increased anion gap metabolic acidosis Respiratory acidosis Status asthmaticus (Acute) Respiratory arrest (Acute) Asthma exacerbation (Acute) Syncopal episodes Medical History Borderline personality disorder Asthma Eosinophilia Cocaine abuse Current every day vaping Depression ADHD Ulcerative colitis Surgical History History of tonsillectomy History of colonoscopy Family History Grandmother (Paternal) Cancer Breast cancer Grandmother (Maternal) Diabetes Denies family history of Ovarian cancer Prostate cancer Myocardial infarction Lung cancer Colorectal cancer Social History Smoking Status: Current every day smoker Tobacco Type: E-cigarettes / Vaping Age Started Using Tobacco: 17; Age Quit Using Tobacco: 19; packs per day: 0.005; Second Hand Exposure: Yes; Do You Dip or Chew Tobacco: No; Hx Alcohol Use: No Hx Substance Use: Yes Non-Prescribed Medications: Crack / Cocaine and Marijuana Preferred Language: [place] Communication Ability: Effective Visual Impairment: Limited Hearing Ability: Normal After School Tutor Required: No Beliefs That Will Affect Care: None marital status: Single Current Living Situation: Other Current Living Situation Comment: apartment with roommates current occupational status: employed current occupation: [employer] How many Children do You have: 0 Feels Safe at Home: Yes Childhood Exposure to Second-Hand Smoke: Yes caffeine: Yes Dental Care, Regularly: No Physical Activity Frequency: 1-2 Times per Week Seatbelt Use: always Sunscreen Use: Yes Assistive Devices: None Review of Systems Review of Systems: Unobtainable due to endotracheal tube Physical Exam Physical Exam: General: Intubated and sedated, withdraws from pain 4 extremities Skin: warm, dry, intact, no rashes or lesions HEENT: normocephalic/atraumatic, mucous membranes moist, neck supple, trachea midline, endotracheal tube in place Heart: +S1/S2, regular, tachycardic,no m/r/g Lungs: equal air entry bilaterally, diminished breath sounds with no rales/rhonchi, scattered wheezing throughout Abd: +BS, soft, ND, no masses/organomegaly/ascites Ext: warm, 2+ pulses in UE/LE bilaterally, no clubbing/cyanosis or edema Results & Data Results & Data Vital Signs (Past 12 Hours) Vital Signs Pulse Resp BP Pulse Ox O2 Del Method 02/09/25 04:32 Mechanical Vent 02/09/25 04:30 117/67 02/09/25 04:30 127 H 16 100 02/09/25 04:28 127/54 L 02/09/25 04:28 127/54 L 02/09/25 04:21 152/102 H 02/09/25 04:21 152/102 H 02/09/25 04:18 134 H 21 100 02/09/25 04:12 128 H 16 100 02/09/25 04:11 123 H 02/09/25 04:10 Mechanical Vent 02/09/25 04:09 160/96 H 02/09/25 04:09 160/96 H 02/09/25 04:09 160/96 H 02/09/25 04:09 160/96 H Mechanical Vent 02/09/25 03:59 Mechanical Vent 02/09/25 03:59 128 H 21 160/96 H 100 Mechanical Vent Laboratory Results Laboratory Results WBC 30.36 K/ul (4.8-10.8) H* 02/09/25 04:09 RBC 4.88 M/uL (4.20-5.40) 02/09/25 04:09 Hgb 14.2 g/dl (12.0-16.0) 02/09/25 04:09 POC Hgb 13.9 g/dl (12.0-16.0) 02/09/25 04:43 Hct 44.2 % (37.0-47.0) 02/09/25 04:09 POC Hct 41 % (37-47) 02/09/25 04:43 MCV 90.6 fL (80.0-100.0) 02/09/25 04:09 MCH 29.1 pg (25.0-34.0) 02/09/25 04:09 MCHC 32.1 g/dL (32.0-36.0) 02/09/25 04:09 RDW Std Deviation 41.1 fL (36.4-46.3) 02/09/25 04:09 RDW Coeff of Carlos 12.4 % (11.5-14.5) 02/09/25 04:09 Plt Count 499 K/uL (130-400) H 02/09/25 04:09 MPV 9.8 fL (9.4-12.4) 02/09/25 04:09 Immature Gran % (Auto) 4.1 % 02/09/25 04:09 Neut % (Auto) 39.1 % 02/09/25 04:09 Lymph % (Auto) 41.4 % 02/09/25 04:09 [place] % (Auto) 7.2 % 02/09/25 04:09 Eos % (Auto) 7.2 % 02/09/25 04:09 Baso % (Auto) 1.0 % 02/09/25 04:09 Neut # (Auto) 11.85 K/uL (1.40-6.50) H 02/09/25 04:09 Lymph # (Auto) 12.58 K/uL (1.20-3.40) H 02/09/25 04:09 [place] # (Auto) 2.20 K/uL (0.11-0.59) H 02/09/25 04:09 Eos # (Auto) 2.19 K/uL (0.00-0.50) H 02/09/25 04:09 Baso # (Auto) 0.31 K/uL (0.00-0.20) H 02/09/25 04:09 Immature Gran # (Auto) 1.23 K/uL (0.01-0.20) H 02/09/25 04:09 Specimen Type Arterial 02/09/25 04:43 POC pH 7.13 (7.35-7.45) L* 02/09/25 04:43 POC pCO2 74 mmHg (35-46) H 02/09/25 04:43 POC pO2 159 mmHg (80-95) H 02/09/25 04:43 POC HCO3 24 cecilia/L (19-24) 02/09/25 04:43 POC Total CO2 27 mmol/L (24-31) 02/09/25 04:43 POC Base Excess -5.0 cecilia/L (-9-1.8) 02/09/25 04:43 POC ABG O2 Sat 99.0 % (90-95) H 02/09/25 04:43 POC Sodium 137 mmol/L (135-144) 02/09/25 04:43 Sodium 139 mmol/L (136-145) 02/09/25 04:09 POC Potassium 4.8 mmol/L (3.3-5.0) 02/09/25 04:43 Potassium 4.7 mmol/L (3.5-5.1) 02/09/25 04:09 POC Chloride 104 mmol/L (101-112) 02/09/25 04:13 Chloride 105 mmol/L (98-107) 02/09/25 04:09 Carbon Dioxide 25 mmol/L (21-32) 02/09/25 04:09 POC Total CO2 27 mmol/L (24-31) 02/09/25 04:13 Anion Gap 9 (3-11) 02/09/25 04:09 POC Anion Gap 14.0 mmol/L (16-25) L 02/09/25 04:13 POC BUN 16 mg/dl (7-18) 02/09/25 04:13 BUN 16 mg/dl (6-23) 02/09/25 04:09 Creatinine 1.10 mg/dl (0.6-1.2) 02/09/25 04:09 POC Creatinine 1.1 mg/dl (0.6-1.3) 02/09/25 04:13 Est Cr Clr Drug Dosing 85.3 ml/min 02/09/25 04:09 eGFR 72.86 02/09/25 04:09 BUN/Creatinine Ratio 14.5 (10-20) 02/09/25 04:09 Glucose 313 mg/dl (70-99(Fasting)) H* 02/09/25 04:09 POC Glucose (other) 304 mg/dl (70-99) H 02/09/25 04:13 Calcium 9.2 mg/dl (8.6-10.3) 02/09/25 04:09 POC Ioniz Calcium Howard 1.28 mmol/l (1.12-1.32) 02/09/25 04:13 Total Bilirubin 0.3 mg/dl (0.2-1.0) 02/09/25 04:09 AST 33 U/L (13-39) 02/09/25 04:09 ALT 21 U/L (7-52) 02/09/25 04:09 Alkaline Phosphatase 90 U/L (34-104) 02/09/25 04:09 Troponin I High Sens 13.2 pg/ml (0-14) 02/09/25 04:09 Total Protein 7.4 gm/dl (6.0-8.3) 02/09/25 04:09 Albumin 4.4 gm/dl (3.4-5.0) 02/09/25 04:09 Globulin 3.0 gm/dl (2.5-4.0) 02/09/25 04:09 Albumin/Globulin Ratio 1.5 (0.9-2) 02/09/25 04:09 HCG, Qual Negative (Negative) 02/09/25 04:09 Adenovirus (PCR) Not Detected (NotDetected) 02/09/25 04:22 B. pertussis DNA (PCR) Not Detected (NotDetected) 02/09/25 04:22 B.parapertussis DNA PCR Not Detected (NotDetected) 02/09/25 04:22 C. pneumoniae DNA (PCR) Not Detected (NotDetected) 02/09/25 04:22 Coronavirus OC43 (PCR) Not Detected (NotDetected) 02/09/25 04:22 Coronavirus HKU1 (PCR) Not Detected (NotDetected) 02/09/25 04:22 Coronavirus 229E (PCR) Not Detected (NotDetected) 02/09/25 04:22 SARS-CoV-2 (PCR) Not Detected (NotDetected) 02/09/25 04:22 Coronavirus NL63 (PCR) Not Detected (NotDetected) 02/09/25 04:22 Human Metapneumovir PCR Not Detected (NotDetected) 02/09/25 04:22 Influenza Type A (PCR) Not Detected (NotDetected) 02/09/25 04:22 Influenza Type B (PCR) Not Detected (NotDetected) 02/09/25 04:22 M. pneumoniae (PCR) Not Detected (NotDetected) 02/09/25 04:22 Parainfluenza 1 (PCR) Not Detected (NotDetected) 02/09/25 04:22 Parainfluenza 2 (PCR) Not Detected (NotDetected) 02/09/25 04:22 Parainfluenza 3 (PCR) Not Detected (NotDetected) 02/09/25 04:22 Parainfluenza 4 (PCR) Not Detected (NotDetected) 02/09/25 04:22 RSV (PCR) Not Detected (NotDetected) 02/09/25 04:22 Entero/Rhino (PCR) Not Detected (NotDetected) 02/09/25 04:22 Impressions Chest X-Ray 02/09/25 04:10 EXAM: XR chest 1V portable CLINICAL HISTORY: dyspnea TECHNIQUE: An X-ray image of the chest is obtained in AP projection. COMPARISON: 11/01/2024 CR FINDINGS: An endotracheal tube is seen with its tip about 3 cm above the pj. Pulmonary Parenchyma: Lungs are clear bilaterally. No evidence of consolidation, collapse, or focal opacities. No pulmonary nodules are identified. No evidence of pleural effusion or pleural thickening. Heart and Mediastinum: Heart size and shape are normal. No mediastinal widening or masses. No hilar or mediastinal lymphadenopathy. Bony Thorax: Bony thorax appears intact without fractures or deformities. Soft Tissues: Soft tissues overlying the chest wall are unremarkable. IMPRESSION: 1. An endotracheal tube with its tip about 3 cm above the pj. New. 2. No acute cardiopulmonary abnormalities are identified. Electronically signed by Allan Jimenes 02-09-2025 05:18 AM PG Care Time/CCT Total # of Minutes Spent Total Time Spent with Patient: Total time spent is greater than 50% in coordination of care (as documented) at patient's floor/unit and/or counseling patient: Coding Level of Care Code 04014 INT INP/OBS CARE MIN Diagnoses Respiratory arrest R09.2 Asthma exacerbation J45.41 Asthma persistence: persistent Asthma severity: moderate ADHD F90.9 (2) Asthma exacerbation Asthma persistence: persistent Asthma severity: moderate Qualified Code(s): J45.41 - Moderate persistent asthma with (acute) exacerbation
[2025-02-09] MEDS: MIDAZOLAM HCL 1 MG/ML 2ML VIAL IV STA (04:35)
[2025-02-09] MEDS: ALBUT/IPRATROP 3MG/0.5MG NEB 3 ML VIAL NEB STA (04:36)
[2025-02-09] MEDS: STAT IV Infusion **Titration per Protocol STA ×2 (04:36→05:23)
[2025-02-09] MEDS: RAPID SEQUENCE INDUCTION BAG ONE (04:36)
[2025-02-09] MEDS: MAGNESIUM SULFATE 1GM / D5W BAG IV STA (04:37)
[2025-02-09] MEDS: SODIUM CHLORIDE 0.9% 1,000 ML IV SCH (04:38)
[2025-02-09] MEDS: KETAMINE HCL / NSS 500 MG/500 ML BAG IV SCH (04:45)
[2025-02-09] MEDS: KETAMINE HCL INJ 50 MG/ML 10 ML VIAL IV ONE (04:47)
[2025-02-09 04:50] LABS: Pregnancy Test, Serum Negative (Negative)
[2025-02-09 04:54] LABS: Alanine Aminotransferase 21.0 U/L (7-52); Albumin Globulin Ratio 1.5 (0.9-2); Alkaline Phosphatase 90.0 U/L (34-104); Anion Gap 9.0 (3-11); Bilirubin,Total 0.3 mg/dl (0.2-1.0); Blood Urea Nitrogen 16.0 mg/dl (6-23); Calcium 9.2 mg/dl (8.6-10.3); Carbon Dioxide 25.0 mmol/L (21-32); Chloride 105.0 mmol/L (98-107); Creatinine Clr Calc Pharmacy 85.3 ml/min; Globulin 3.0 gm/dl (2.5-4.0); Glucose 313.0 mg/dl (70-99(Fasting)); Potassium 4.7 mmol/L (3.5-5.1); Sodium 139.0 mmol/L (136-145); Total Protein 7.4 gm/dl (6.0-8.3)
[2025-02-09 04:57] LABS: iSTAT Art Bld Gas Base Excess -5.0 meg/L (-9-1.8)
[2025-02-09 04:57] LABS: Hematocrit (blood only) 44.2 % (37.0-47.0); Hemoglobin 14.2 g/dl (12.0-16.0); Mean Corpuscular Hemoglobin 29.1 pg (25.0-34.0); Mean Corpuscular Volume 90.6 fL (80.0-100.0); Platelet Count 499 K/uL (130-400); RDW Standard Deviation 41.1 fL (36.4-46.3); Red Blood Count 4.88 M/uL (4.20-5.40); White Blood Count 30.36 K/ul (4.8-10.8)
[2025-02-09] MEDS ORDERED: MIDAZOLAM BOLUS FROM BAG IV PRN (04:58)
--- NOTE | 2025-02-09 05:18 | XRay Report ---
EXAM: XR chest 1V portable CLINICAL HISTORY: dyspnea TECHNIQUE: An X-ray image of the chest is obtained in AP projection. COMPARISON: 11/01/2024 CR FINDINGS: An endotracheal tube is seen with its tip about 3 cm above the pj. Pulmonary Parenchyma: Lungs are clear bilaterally. No evidence of consolidation, collapse, or focal opacities. No pulmonary nodules are identified. No evidence of pleural effusion or pleural thickening. Heart and Mediastinum: Heart size and shape are normal. No mediastinal widening or masses. No hilar or mediastinal lymphadenopathy. Bony Thorax: Bony thorax appears intact without fractures or deformities. Soft Tissues: Soft tissues overlying the chest wall are unremarkable. IMPRESSION: 1. An endotracheal tube with its tip about 3 cm above the pj. New. 2. No acute cardiopulmonary abnormalities are identified. Electronically signed by Allan Jimenes 02-09-2025 05:18 AM
[2025-02-09 05:20] LABS: Immature Granulocytes # (auto) 1.23 K/uL (0.01-0.20); Immature Granulocytes % (auto) 4.1 %
--- NOTE | 2025-02-09 05:23 | Critical Care Consultation ---
Date of Consultation February 09, 2025 Assessment & Plan (1) Status asthmaticus: (2) Respiratory arrest: (3) Respiratory acidosis: (4) Increased anion gap metabolic acidosis: Plan Reason Critically Ill: 20 YOF presents intubated following call to EMS for asthma attack. To the ICU for continued management of ventilation and oxygenation and status asthmaticus. Neuro - [facility] ICU: [facility]E - Sedation to assist with ventilation as well as bronchial and pulmonary artery dilation Ketamine, propofol. Midazolam to be added -- Active drug abuse UDS positive for cocaine as well as marijuana It is also positive for amphetamine benzodiazepine as well as fentanyl which could be because it was done after intubation -- Anxiety with mood disorder On aripiprazole as well as escitalopram at home Cardiac - No acute needs - currently with adequate HR and BP no evidence of organ dysfunction or shock Respiratory - Status Asthmaticus, respiratory arrest requiring emergent intubation and mechanical ventilation - Reportedly has been having frequent symptoms at home with increased use of albuterol inhaler over the past 2 weeks - intubated - have decreased her PaCO2 to 70- will attempt to transition her to a slower rate and VT 6-8ml per kg and maintain mild hypercarbia if PH allows - has received 125 mg of Solumederol - if refractory can consider another 40- 50mg IV solumederol for 2mg/kg- otherwise continue 40mg q8h - Continue with another hour long nebulizer on arrival and then scheduled q2h- wean down as tolerated - Will add Montelukast - NaHCo3 to keep PH ~ 7.1 if needed - addition of epinephrine infusion if remains with severe wheezing or failing to ventilate/oxygenate - Terbutaline 0.25 mg q15 x3 may also be considered - We will check an ABG/VBG on arrival to the ICU and adjust as above - Viral panel pending- however likely secondary to exposure -- History of asthma Moderate to severe persistent Absolute eosinophil count 2190 on 02/09/2025 Labs 05/18/2024: IgE 456, RAST panel negative for everything including Aspergillus IgE Tryptase 1.3 GI - NPO- place OGT -- History of ulcerative colitis On extended release mesalamine at home RENAL/LYTES - no acute needs -- Lactic acidosis Getting IV fluids -- KAREN Monitor BUN/creatinine Avoid nephrotoxic medications Strict ins and outs ENDO - -- ICU hyperglycemic protocol HEME - -- Monitor H&H ID - No concern at this time for infectious etiology- Chest x-ray as well as UA is clean LINES/IV ACCESS - PIV x2, Joseph, OGT, ETT Continue use of these lines - Consider arterial line DVT PROPHYLAXIS - SCDS, Lovenox Sq DISPO: ICU while intubated and sedated I have personally spent 65 minutes of critical care time in the direct management of this patient. This is a life/limb threatening event. This includes time spent evaluating patient, direct bedside care, chart review, placing orders, interpretation of diagnostic studies, discussion with consultants, patient, and family members, as well as other required patient management activities. This time is exclusive of all separately billable procedures, and teaching time and separate from and in addition to any other critical care service time. Thank you for allowing us to participate in the care of this patient. Please refer to my attending physician's documentation for any further recommendations. Supervising Physician Co-Signing Physician Notes I saw and evaluated the patient with GEO Del Real, and agree with findings and plan as documented in the note. Spirometry 05/18/2024 personally reviewed: Mild obstructive lung dysfunction FVC 4.50 L 111%, FEV1 3.08 L 87%, FEV1/FVC 68% Patient seen and examined at bedside. No acute distress She was on ketamine 0.5, propofol 50 and midazolam 1 at the time of examination Saturation was 100% on 50% FiO2 and PEEP of 5. Blood pressures was in the systolic 120s. Heart rate in the 100s. Patient's boyfriend was in the room. Constitutional: No acute distress HEENT: sluggish pupillary response, right pupil 6 mm, left pupil 4 mm Respiratory system: Decreased air entry bilaterally, no wheeze, no rhonchi, no crackles CVS: S1-S2 positive, no murmurs or gallops Abdomen: Soft, nontender, nondistended, positive bowel sounds x4 Extremities: +2 pulses bilaterally radialis/ dorsalis pedis, no cyanosis, no edema Neuro: Breathing over the vent, Psych: Unable to assess G/U: Positive Joseph --Prophylaxis VTE: Heparin GI: None Lines: Peripheral Diet: N.p.o. Plan: In/out: +1.7 L, urine output 150 mL Will try to get rid of midazolam if possible, increase the dose of ketamine if need be, continue with propofol Patient does have a history of cocaine abuse as well as marijuana use. She will need more medication to keep her sedated Does have significant eosinophilia. Will add montelukast to her regimen She will be a good candidate for Biologics as an outpatient if she is compliant with her inhalers Leukocytosis is likely a combination of steroids as well as exacerbation. Did get a dose of antibiotics in the ED No clear signs of infection milligrams of chest x-ray. Asymmetry in the size of the pupils, right > left. As per the boyfriend patient does have issues with vision. He is unsure of any surgeries around the eyes I will get CT of the head Will decrease Solu-Medrol to every 12 Patient's mother who was at bedside was updated regarding patient's condition. I have personally spent 68 minutes of critical care time in the direct management of this patient. This is a life/limb threatening event. This includes time spent evaluating patient, direct bedside care, chart review, placing orders, interpretation of diagnostic studies, discussion with consultants, patient, and family members, as well as other required patient management activities. This time is exclusive of all separately billable procedures, and teaching time and separate from and in addition to any other critical care service time. Please note the above document was generated using voice recognition software. It may contain grammatical, syntax or spelling errors. History of Present Illness Reason for Consultation: status asthmaticus- intubated and mechanically ventilated Requesting Physician: Lexis Granados DO Attending Physician: Lexis Granados DO History of Present Illness 20 YOF with medical history of: Eosinophilia, Current vape use, marijuana use, cocaine abuse, Ulcerative Colitis. Recent ER visit in 01/28 for asthma exacerbation and previous admission in 10/29 for asthma exacerbation. Appears to have just finished steroid taper and maintained on Albuterol and BREO. 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 She was intubated with Ketamine as well as given 125mg solumederol and Epinephrine. I was asked by ER Physician to be present on arrival secondary to her report of extremis. Upon arrival to the ER, the patient was with chest rise and fall but diminished lung sounds throughout, EtCO2 was 90, SPo2 was 100%, HR 130s, and BP 150s. She was initiated on Propofol infusion, received 2GM Magnesium, 1 hour long nebulizer, ventilator was adjusted to prolong her iTime to 1:3.5, VT adjusted and rate increased to high 20s, initial ABG was with PH <7.0 and PaCo2 90s. She was given amp NaHCO3, fentanyl, and versed to assist with vent synch loida as well as Ketamine bolus and infusion. 20 min after arrival PaCO2 re- evaluated with ABG and PaCO2 downtrended to 70s. Patient will need further sedation and ventilation adjustments, can allow for some permissive hypercapnia as we are now with improved breath sounds and will continue with frequent nebulizers. If PaCO2 and or PaO2 become refractory transfer for ECMO will be considered. CODE: FULL Allergies Allergy/AdvReac Type Severity Reaction Status Date / Time nickel Allergy Intermediate Rash Unverified 01/17/25 13:31 perfume Allergy Unknown Sneezing Unverified 01/17/25 13:31 No Known Drug Allergies Allergy Verified 01/17/25 13:31 Home Medications Medication Instructions Recorded Confirmed Type aripiprazole 10 mg tablet (Abilify) 10 mg PO QPM 08/13/23 01/17/25 History escitalopram oxalate 10 mg tablet 10 mg PO QPM 08/13/23 01/17/25 History (Lexapro) lisdexamfetamine 70 mg capsule 70 mg PO QAM 04/25/24 01/17/25 History (Vyvanse) mesalamine 1.2 gram tablet,delayed 2.4 g (2 x 1.2 gram) PO QAM #90 12/20/24 01/17/25 Rx release tabs albuterol sulfate 90 mcg/actuation 1 inh inhalation Q4H PRN shortness 12/21/24 01/17/25 Rx aerosol inhaler of breath or wheezing #8.5 grams sulfamethoxazole 800 1 tab PO BID #20 tabs 01/15/25 01/17/25 Rx mg-trimethoprim 160 mg tablet (Bactrim DS) fluticasone furoate 100 1 inh inhalation DAILY #1 inhaler 01/17/25 01/17/25 Rx mcg-vilanterol 25 mcg/dose inhalation powder (Breo Ellipta) albuterol sulfate 90 mcg/actuation 2 inh inhalation Q4H PRN shortness 02/04/25 Rx aerosol inhaler of breath or wheezing #8.5 grams methylprednisolone 4 mg tablets in See Rx Instructions .Route 02/04/25 Rx a dose pack (Medrol (Olaf)) .COMPLEX #21 ea Patient History Medical History Borderline personality disorder Asthma Eosinophilia Cocaine abuse Current every day vaping Depression ADHD Ulcerative colitis Surgical History History of tonsillectomy History of colonoscopy Family History Grandmother (Paternal) Cancer Breast cancer Grandmother (Maternal) Diabetes Denies family history of Ovarian cancer Prostate cancer Myocardial infarction Lung cancer Colorectal cancer Social History Smoking Status: Current every day smoker Tobacco Type: Cigarettes and E-cigarettes / Vaping Age Started Using Tobacco: 17; Age Quit Using Tobacco: 19; packs per day: 0.005; Second Hand Exposure: Yes; Do You Dip or Chew Tobacco: No; Hx Substance Use: Yes Non-Prescribed Medications: Crack / Cocaine and Marijuana Last Used Substance: Unknown Preferred Language: Bulgarian Communication Ability: Impaired Visual Impairment: Limited Hearing Ability: Normal Delivery Supervisor Required: No Beliefs That Will Affect Care: None marital status: Single Current Living Situation: Significant Other Current Living Situation Comment: apartment with roommates current occupational status: employed current occupation: [employer] How many Children do You have: 0 Feels Safe at Home: Yes Childhood Exposure to Second-Hand Smoke: Yes caffeine: Yes Dental Care, Regularly: No Physical Activity Frequency: 1-2 Times per Week Seatbelt Use: always Sunscreen Use: Yes Assistive Devices: None Review of Systems Review of Systems: unable to obtain secondary to arriving intubated Physical Exam Physical Exam: PHYSICAL EXAM: ENT: PERRL, no pharyngeal exudate, mucous membranes dry Neuro: Sedated, did raise bilateral arms and head off bed following correction of her Co2. Chest: equal rise and fall of the chest, desynchrony with ventilator, bilateral expiratory wheezing Cardiac: Regular rate and rhythm, telemetry reviewed- sinus tachycardia without ectopy, skin warm dry, cap refill <3 seconds, peripheral pulses +2 no JVD, no edema GI: NABS x 4 quadrants, soft, nontender to palpation, no rebound, guarding or tenderness : Joseph to gravity Results & Data Results & Data Vital Signs (Past 12 Hours) Vital Signs Pulse Resp BP Pulse Ox O2 Del Method FiO2 02/09/25 05:09 Mechanical Vent 02/09/25 05:08 117 H 30 H 100 50 02/09/25 04:32 Mechanical Vent 02/09/25 04:30 117/67 02/09/25 04:30 127 H 16 100 02/09/25 04:28 127/54 L 02/09/25 04:28 127/54 L 02/09/25 04:21 152/102 H 02/09/25 04:21 152/102 H 02/09/25 04:18 134 H 21 100 02/09/25 04:12 128 H 16 100 02/09/25 04:11 123 H 02/09/25 04:10 Mechanical Vent 02/09/25 04:09 160/96 H 02/09/25 04:09 160/96 H 02/09/25 04:09 160/96 H 02/09/25 04:09 160/96 H Mechanical Vent 02/09/25 03:59 Mechanical Vent 02/09/25 03:59 128 H 21 160/96 H 100 Mechanical Vent Laboratory Results Abnormal lab results 02/09/25 02/09/25 02/09/25 Range/Units 04:09 04:13 04:43 WBC 30.36 H* (4.8-10.8) K/ul Plt Count 499 H (130-400) K/uL Neut # (Auto) 11.85 H (1.40-6.50) K/uL Lymph # (Auto) 12.58 H (1.20-3.40) K/uL [place] # (Auto) 2.20 H (0.11-0.59) K/uL Eos # (Auto) 2.19 H (0.00-0.50) K/uL Baso # (Auto) 0.31 H (0.00-0.20) K/uL Immature Gran # (Auto) 1.23 H (0.01-0.20) K/uL POC pH 7.13 L* (7.35-7.45) POC pCO2 74 H (35-46) mmHg POC pO2 159 H (80-95) mmHg POC ABG O2 Sat 99.0 H (90-95) % POC Anion Gap 14.0 L (16-25) mmol/L Glucose 313 H* (70-99(Fasting)) mg/dl POC Glucose (other) 304 H (70-99) mg/dl Diagnostic Findings Chest X-Ray 02/09/25 04:10 EXAM: XR chest 1V portable CLINICAL HISTORY: dyspnea TECHNIQUE: An X-ray image of the chest is obtained in AP projection. COMPARISON: 11/01/2024 CR FINDINGS: An endotracheal tube is seen with its tip about 3 cm above the pj. Pulmonary Parenchyma: Lungs are clear bilaterally. No evidence of consolidation, collapse, or focal opacities. No pulmonary nodules are identified. No evidence of pleural effusion or pleural thickening. Heart and Mediastinum: Heart size and shape are normal. No mediastinal widening or masses. No hilar or mediastinal lymphadenopathy. Bony Thorax: Bony thorax appears intact without fractures or deformities. Soft Tissues: Soft tissues overlying the chest wall are unremarkable. IMPRESSION: 1. An endotracheal tube with its tip about 3 cm above the pj. New. 2. No acute cardiopulmonary abnormalities are identified. Electronically signed by Allan Jimenes 02-09-2025 05:18 AM Medications Administered Sodium Chloride (Nss) 1,000 mls @ 125 mls/hr IV .Q8H MENDOZA Stop: 02/12/25 04:14 Last Admin: 02/09/25 04:38 Dose: 125 mls/hr Documented By: LIZZY Propofol (Diprivan) 1,000 mg in 100 mls @ 10.356 mls/hr IV .[id number] MENDOZA; Protocol Stop: 02/12/25 04:14 Last Titration: 02/09/25 04:43 Dose: 40 mcg/kg/min, 20.7 mls/hr Documented By: Admin: 02/09/25 04:36 Dose: 20 mcg/kg/min, 10.4 mls/hr Documented By: LIZZY Co-signed By: ALESSANDRA Ketamine HCl (Ketalar / Nss) 500 mg in 500 mls @ 27.35 mls/hr IV .[id number] MENDOZA; Protocol Stop: 03/11/25 04:29 Last Admin: 02/09/25 04:45 Dose: 0.5 mg/kg/hr, 27.4 mls/hr Documented By: LIZZY Co-signed By: JOE Discontinued Medications Albuterol (Albut/Ipratrop 3mg/0.5mg Neb 3 Ml Vial) 12 ml NEB ONE STA Stop: 02/09/25 04:11 Last Admin: 02/09/25 04:36 Dose: 12 ml Documented By: LIZZY Fentanyl Citrate (Fentanyl Citrate Pf 100 Mcg/2 Ml Vial) 100 mcg IV NOW STA Stop: 02/09/25 04:13 Last Admin: 02/09/25 04:33 Dose: 100 mcg Documented By: LIZZY Fentanyl Citrate (Fentanyl Citrate Pf 100 Mcg/2 Ml Vial) 100 mcg IV NOW STA Stop: 02/09/25 04:27 Last Admin: 02/09/25 04:35 Dose: 100 mcg Documented By: LIZZY Fentanyl Citrate (Fentanyl Citrate Pf 100 Mcg/2 Ml Vial) 100 mcg IV NOW STA Stop: 02/09/25 05:20 Last Admin: 02/09/25 05:23 Dose: 100 mcg Documented By: ALESSANDRA Ketamine HCl (Ketamine Hcl Inj 50 Mg/Ml 10 Ml Vial) 55 mg 1 mg/kg (55 mg) IV NOW ONE Stop: 02/09/25 04:30 Last Admin: 02/09/25 04:47 Dose: 55 mg Documented By: LIZZY Co-signed By: JOE Magnesium Sulfate/Dextrose (Magnesium Sulfate 1gm / D5w Bag) 2 gm IV NOW STA Stop: 02/09/25 04:11 Last Admin: 02/09/25 04:37 Dose: 2 gm Documented By: LIZZY Midazolam HCl (Midazolam Hcl 1 Mg/Ml 2ml Vial) 2 mg IV NOW STA Stop: 02/09/25 04:28 Last Admin: 02/09/25 04:35 Dose: 2 mg Documented By: LIZZY Miscellaneous (Rapid Sequence Induction Bag) Confirm Administered Dose 1 each N/A .STK-MED ONE Stop: 02/09/25 04:03 Last Admin: 02/09/25 04:36 Dose: 1 each Documented By: LIZZY Borreroaneous (Stat Iv Infusion Titration Per Protocol) 1 each N/A NOW STA Stop: 02/09/25 04:59 Last Admin: 02/09/25 05:23 Dose: Not Given Documented By: ALESSANDRA Sodium Bicarbonate (Sodium Bicarb 8.4% Inj 50 Meq/50 Ml Syr) 50 meq IV NOW STA Stop: 02/09/25 04:22 Last Admin: 02/09/25 04:34 Dose: 50 meq Documented By: LIZZY Coding Level of Care Code 23937 CRITICAL CARE 1ST 30-74M Diagnoses Status asthmaticus J45.902 Respiratory arrest R09.2 Respiratory acidosis E87.29 Increased anion gap metabolic acidosis E87.29
[2025-02-09 05:29] LABS: Chlamydia pneumoniae PCR Not Detected (NotDetected); Coronavirus 229E PCR Not Detected (NotDetected); Coronavirus CoV-2 (COVID19)PCR Not Detected (NotDetected); Coronavirus HKU1 PCR Not Detected (NotDetected); Coronavirus NL63 PCR Not Detected (NotDetected); Coronavirus OC43PCR Not Detected (NotDetected); Human Metapneumovirus PCR Not Detected (NotDetected); Parainfluenza Virus 1 PCR Not Detected (NotDetected); Parainfluenza Virus 2 PCR Not Detected (NotDetected); Parainfluenza Virus 3 PCR Not Detected (NotDetected); Parainfluenza Virus 4 PCR Not Detected (NotDetected); Respiratory Syncytial VirusPCR Not Detected (NotDetected); Rhinovirus/Enterovirus PCR Not Detected (NotDetected)
--- NOTE | 2025-02-09 05:29 | Emergency Department Note ---
Impression & Plan Respiratory arrest, Status asthmaticus, Hyperglycemia, Tobacco abuse ED Provider Note ED Provider Note NAME: VASILIY RAJAN AGE:20 SEX: Female : 2005 ARRIVES VIA: EMS INFORMANT: EMS ED PROVIDER(s): Ladonna Simmons DO CHIEF COMPLAINT: shortness of breath HPI: This is a 20-year-old female brought in by EMS due to concern for increased shortness of breath. EMS reports patient complained of shortness of breath and was ill-appearing on arrival however did walk to the ambulance. They placed the patient on a nonrebreather and gave her a nebulizer treatment however it did not improve and patient then began to report feeling worse and slowly became less responsive and eventually unconscious. They did start an IV on the patient and as she became hypoxic began to bag the patient. They did call medical command to update us on her condition prior to arrival and did ask for preference of medications to intubate the patient prehospital. Patient's vital signs at that time were otherwise stable and the patient was tachycardic. Upon arrival in the ER patient was intubated and being bagged although did appear to be fighting the tube and did have some spontaneous movement in the upper extremities. She was given ketamine for her intubation by EMS and then IV Versed for sedation following this. She was given solu-medrol 125 mg also and epi 0.3 mg IM. EMS reported she did have a history of asthma, they did not have any other additional information regarding her past medical history. There is no family members immediately at bedside to provide any additional history. PAST MEDICAL HISTORY:See Below PAST SURGICAL HISTORY:See Below FAMILY HISTORY:See Below SOCIAL HISTORY:See Below HOME MEDICATIONS:See Below ALLERGIES:See Below VITALS:See Below PHYSICAL EXAMINATION: GENERAL: well nourished, being bagged by EMS EYE EXAM: normal conjunctiva, PERRLA OROPHARYNX: no exudate, no erythema, lips, buccal mucosa, and tongue normal, ETT in place NECK: supple, no nuchal rigidity, no adenopathy, non-tender LUNGS: Significantly decreased BS b/l, increased WOB, tachypnea, being bagged HEART: no murmurs, S1 normal and S2 normal ABDOMEN: abdomen soft, non-tender, normo-active bowel sounds, no masses, no guarding. SKIN: no rashes, petechiae, orbruising UPPER EXTREMITIES: upper extremities are grossly normal. FROM, nml pulses b/l. LOWER EXTREMITIES: No pitting edema. FROM, nml pulses b/l. NEURO EXAM: GCS 3 Vital Signs: reviewed and remarkable Differential Diagnosis: pneumonia, bronchitis, COPD/Asthma exacerbation, pneumothorax, pulmonary embolism, congestive heart failure, acute coronary syndrome, as well as others were considered MEDICAL DECISION MAKING: This is a 20-year-old female who presents to the emergency department via EMS as for respiratory arrest secondary to status asthmaticus. Patient was intubated prehospital. On arrival patient was tachycardic and tachypneic with elevated end-tidal's in the 90s. She had minimal air movement on auscultation b/l. Patient had been given ketamine and then Versed by EMS. On arrival here a second IV was established and patient given IV fentanyl for sedation followed by a propofol drip. The EMS line was no longer able to be used and there was a delay in obtaining additional IV access as the propofol was not compatible with other meds that were added. I had contacted RT prior to patient's arrival and they were at bedside. Patient was transitioned over to our vent and we did briefly discuss ventilator settings including a prolonged I:E ratio and low tidal volumes. Patient was started on a continuous nebulizer treatment. Once additional IV access was obtained, 2 g of IV magnesium were also given. Patient did require additional IV fentanyl and IV Versed for sedation. I had contacted the ICU MORENO who also presented to bedside to assist with acute management. RT was able to obtain a jaieo-cj-klnz ABG which showed an initial pH of 6.9 and PCO2 of 97. Patient's respiratory rate was increased, I:E ratio adjusted, and further sedation and an amp of bicarb were given as she was still intermittently fighting the endotracheal tube and would move spontaneously. Nasal swab was obtained and sent, chest x-ray performed at bedside and interpreted by me and did show the ET tube in good position, no evidence of obvious pulmonary edema, focal consolidation, pleural effusion, or pneumothorax. Labs been drawn and sent with the placement of the additional IV access and were still pending at that time, [id number]-[id number] BMP showed a stable H&H, no acute electrolyte abnormality or KAREN, and blood glucose of greater than 300. I did contact the pharmacy and requested a ketamine drip as well. Patient was given a bolus and then infusion started additionally of the ketamine in addition to the propofol. Patient reassessed multiple times and I remained at bedside throughout while changes were made to her ventilator settings with the assistance of the ICU MORENO as well as additional medications given at bedside. Patient slowly began to have improved air movement and wheezing eventually noted bilaterally with a predominance in the expiratory phase. Patient continued to intermittently move and would become asynchronous with the ventilator. Additional Versed and ultimately Versed drip for added. I did review the patient's chart given recent evaluation here for asthma exacerbation and URI. Prior documentation notes patient does continue to use tobacco as well as vape. I did ultimately go speak with a significant other who presented to bedside and was still in the waiting room. He confirmed that her symptoms worsened tonight after they were outside for a walk but that she has had worsening asthma-like symptoms over the last several weeks. He does confirm she continues to smoke cigarettes and vape both nicotine and marijuana products. Repeat tqeqv-zy-llez ABG did show improvement in her pH and pCO2. End title CO2 continued to improve on capnography at bedside additionally starting from the 90s down ultimately into the 40s. Patient continued to show improvement on repeat examination at bedside. No other evidence of trauma. Patient was frequently suctioned by RT with pink- tinged sputum noted. Patient was started on IV fluids at a maintenance rate additionally. She did have some mild and transient hypotension when she was receiving the IV magnesium. Heart rate slowly improved as her work of breathing decreased. She had no hypoxic episodes. Additional labs eventually began to result and did show a significant leukocytosis of 30 however I suspect this is predominantly stress to margination given her status asthmaticus and respiratory arrest. I have a low suspicion for occult infection. Patient was noted to be hyperglycemic, no evidence of DKA. No prior documentation of diabetes. Is unclear if this is related to stress to margination and recent steroid burst for her asthma. Case discussed with the hospitalist team who had come to bedside during our resuscitation of this patient was aware of her condition and history. Consultation(s): 439: Discussed with Dr. Granados, [facility] hospitalist team, for additional evaluation and mgmt. ER Treatment Provided: See below 0515: Discussed with boyfriend in the waiting room. Patient has been worsening last couple weeks. She is wheezing. Labs are sent out frequently without any significant improvement. He states tonight they went for a walk outside and it got significantly worse after that. He states she does still smoke cigarettes, vapes with nicotine and marijuana products. Denies any recreational drug use or alcohol use. Diagnostics Interpreted By Me: -ECG: sinus tachycardia at 105, nml axis, nml intervals, nonspecific ST/T wave changes -Cardiac Monitoring: An order was placed for continuous cardiac monitoring. The monitor shows a rate of 120 with sinus tachycardia rhythm. -Laboratory studies: As stated above and show below. -Imaging studies: X-ray Chest: A single view study of the chest was reviewed and was negative for cardiomegaly, focal infiltrate, effusion, pulmonary edema, or wide mediastinum. Triage Nursing Note Reviewed Prior/Outside Records Reviewed Critical Care: Critical care of 92 min performed to assess and manage high likelihood of life-threatening respiratory arrest, involving labs and imaging performed with assessment to evaluate respiratory arrest diagnosis with frequent reassessment. This time includes bedside time, treatment discussions with patient/family/consultants, documentation time and excludes procedure time. Past Med/Surg History Problem List (Updated 02/09/25 @ 08:48 by Ladonna Simmons DO) Tobacco abuse (Acute) Hyperglycemia (Acute) Increased anion gap metabolic acidosis Respiratory acidosis Status asthmaticus (Acute) Respiratory arrest (Acute) Asthma exacerbation (Acute) Syncopal episodes Medical History Borderline personality disorder Asthma Eosinophilia Cocaine abuse Current every day vaping Depression ADHD Ulcerative colitis Surgical History History of tonsillectomy History of colonoscopy Family History Grandmother (Paternal) Cancer Breast cancer Grandmother (Maternal) Diabetes Denies family history of Ovarian cancer Prostate cancer Myocardial infarction Lung cancer Colorectal cancer Social History Smoking Status: Current every day smoker Tobacco Type: Cigarettes and E-cigarettes / Vaping Age Started Using Tobacco: 17; Age Quit Using Tobacco: 19; packs per day: 0.005; Second Hand Exposure: Yes; Do You Dip or Chew Tobacco: No; Hx Substance Use: Yes Non-Prescribed Medications: Crack / Cocaine and Marijuana Last Used Substance: Unknown Preferred Language: Maori Communication Ability: venitlator Visual Impairment: Limited Hearing Ability: Normal [place] Required: No Beliefs That Will Affect Care: None marital status: Single Current Living Situation: Significant Other Current Living Situation Comment: apartment with roommates current occupational status: employed current occupation: [employer] How many Children do You have: 0 Feels Safe at Home: Yes Childhood Exposure to Second-Hand Smoke: Yes caffeine: Yes Dental Care, Regularly: No Physical Activity Frequency: 1-2 Times per Week Seatbelt Use: always Sunscreen Use: Yes Assistive Devices: None Allergies Allergies Allergy/AdvReac Type Severity Reaction Status Date / Time nickel Allergy Intermediate Rash Unverified 01/17/25 13:31 perfume Allergy Unknown Sneezing Unverified 01/17/25 13:31 No Known Drug Allergies Allergy Verified 01/17/25 13:31 Home Meds Home Medications Medication Instructions Recorded Confirmed aripiprazole 10 mg tablet (Abilify) 10 mg PO QPM 08/13/23 01/17/25 escitalopram oxalate 10 mg tablet 10 mg PO QPM 08/13/23 01/17/25 (Lexapro) lisdexamfetamine 70 mg capsule 70 mg PO QAM 04/25/24 01/17/25 (Vyvanse) Previous Rx's Medication Instructions Recorded mesalamine 1.2 gram tablet,delayed 2.4 g (2 x 1.2 gram) PO QAM #90 12/20/24 release tabs albuterol sulfate 90 mcg/actuation 1 inh inhalation Q4H PRN shortness 12/21/24 aerosol inhaler of breath or wheezing #8.5 grams sulfamethoxazole 800 1 tab PO BID #20 tabs 01/15/25 mg-trimethoprim 160 mg tablet (Bactrim DS) fluticasone furoate 100 1 inh inhalation DAILY #1 inhaler 01/17/25 mcg-vilanterol 25 mcg/dose inhalation powder (Breo Ellipta) albuterol sulfate 90 mcg/actuation 2 inh inhalation Q4H PRN shortness 02/04/25 aerosol inhaler of breath or wheezing #8.5 grams methylprednisolone 4 mg tablets in See Rx Instructions .Route 02/04/25 a dose pack (Medrol (Olaf)) .COMPLEX #21 ea Results & Data (ED) Vital Signs Vital Signs - 24 hr 02/09/25 03:59 02/09/25 03:59 02/09/25 03:59 Pulse Rate 128 H Pulse Rate [Finger] Pulse Rate from SpO2 Sensor Respiratory Rate 21 Respiratory Effort / Characteristics Mechanically Ventilated Non-Labored Respiratory Depth Normal Blood Pressure 160/96 H Blood Pressure Mean 117 Pulse Oximetry 100 Oxygen Delivery Method Mechanical Vent Mechanical Vent Fraction of Inspired Oxygen Sepsis Recent Fever Within 48 Hours No Sepsis New/Unexplained Change in Mental Status No Sepsis Action Taken by Nursing Physician Notified End-Tidal CO2 02/09/25 04:09 02/09/25 04:09 02/09/25 04:09 Pulse Rate Pulse Rate [Finger] Pulse Rate from SpO2 Sensor Respiratory Rate Respiratory Effort / Characteristics Respiratory Depth Blood Pressure 160/96 H 160/96 H 160/96 H Blood Pressure Mean 105 105 105 Pulse Oximetry Oxygen Delivery Method Mechanical Vent Fraction of Inspired Oxygen Sepsis Recent Fever Within 48 Hours Sepsis New/Unexplained Change in Mental Status Sepsis Action Taken by Nursing End-Tidal CO2 02/09/25 04:09 02/09/25 04:10 02/09/25 04:11 Pulse Rate 123 H Pulse Rate [Finger] Pulse Rate from SpO2 Sensor Respiratory Rate Respiratory Effort / Characteristics Respiratory Depth Blood Pressure 160/96 H Blood Pressure Mean 105 Pulse Oximetry Oxygen Delivery Method Mechanical Vent Fraction of Inspired Oxygen Sepsis Recent Fever Within 48 Hours Sepsis New/Unexplained Change in Mental Status Sepsis Action Taken by Nursing End-Tidal CO2 02/09/25 04:12 02/09/25 04:18 02/09/25 04:21 Pulse Rate 128 H 134 H Pulse Rate [Finger] Pulse Rate from SpO2 Sensor 130 H 135 H Respiratory Rate 16 21 Respiratory Effort / Characteristics Respiratory Depth Blood Pressure 152/102 H Blood Pressure Mean 104 Pulse Oximetry 100 100 Oxygen Delivery Method Fraction of Inspired Oxygen Sepsis Recent Fever Within 48 Hours Sepsis New/Unexplained Change in Mental Status Sepsis Action Taken by Nursing End-Tidal CO2 93 70 02/09/25 04:21 02/09/25 04:28 02/09/25 04:28 Pulse Rate Pulse Rate [Finger] Pulse Rate from SpO2 Sensor Respiratory Rate Respiratory Effort / Characteristics Respiratory Depth Blood Pressure 152/102 H 127/54 L 127/54 L Blood Pressure Mean 104 59 59 Pulse Oximetry Oxygen Delivery Method Fraction of Inspired Oxygen Sepsis Recent Fever Within 48 Hours Sepsis New/Unexplained Change in Mental Status Sepsis Action Taken by Nursing End-Tidal CO2 02/09/25 04:30 02/09/25 04:30 02/09/25 04:32 Pulse Rate 127 H Pulse Rate [Finger] Pulse Rate from SpO2 Sensor 124 H Respiratory Rate 16 Respiratory Effort / Characteristics Respiratory Depth Blood Pressure 117/67 Blood Pressure Mean 83 Pulse Oximetry 100 Oxygen Delivery Method Mechanical Vent Fraction of Inspired Oxygen Sepsis Recent Fever Within 48 Hours Sepsis New/Unexplained Change in Mental Status Sepsis Action Taken by Nursing End-Tidal CO2 81 02/09/25 04:34 02/09/25 04:36 02/09/25 04:40 Pulse Rate Pulse Rate [Finger] Pulse Rate from SpO2 Sensor Respiratory Rate Respiratory Effort / Characteristics Respiratory Depth Blood Pressure 112/57 L 95/64 L 100/63 Blood Pressure Mean 91 73 78 Pulse Oximetry Oxygen Delivery Method Fraction of Inspired Oxygen Sepsis Recent Fever Within 48 Hours Sepsis New/Unexplained Change in Mental Status Sepsis Action Taken by Nursing End-Tidal CO2 02/09/25 04:40 02/09/25 04:42 02/09/25 04:44 Pulse Rate 121 H Pulse Rate [Finger] 110 H Pulse Rate from SpO2 Sensor 121 H Respiratory Rate 30 H 19 Respiratory Effort / Characteristics Spontaneous Respiratory Depth Blood Pressure 104/61 Blood Pressure Mean 84 Pulse Oximetry 100 99 Oxygen Delivery Method Mechanical Vent Fraction of Inspired Oxygen 50 Sepsis Recent Fever Within 48 Hours Sepsis New/Unexplained Change in Mental Status Sepsis Action Taken by Nursing End-Tidal CO2 50 02/09/25 04:46 Pulse Rate Pulse Rate [Finger] Pulse Rate from SpO2 Sensor Respiratory Rate Respiratory Effort / Characteristics Respiratory Depth Blood Pressure 113/88 Blood Pressure Mean 95 Pulse Oximetry Oxygen Delivery Method Fraction of Inspired Oxygen Sepsis Recent Fever Within 48 Hours Sepsis New/Unexplained Change in Mental Status Sepsis Action Taken by Nursing End-Tidal CO2 Laboratory Data 02/09/25 04:09 02/09/25 04:09 Lab Results 02/09/25 02/09/25 02/09/25 Range/Units 04:09 04:13 04:22 WBC 30.36 H* (4.8-10.8) K/ul RBC 4.88 (4.20-5.40) M/uL Hgb 14.2 (12.0-16.0) g/dl POC Hgb 15.0 (12.0-16.0) g/dl Hct 44.2 (37.0-47.0) % POC Hct 44 (37-47) % MCV 90.6 (80.0-100.0) fL MCH 29.1 (25.0-34.0) pg MCHC 32.1 (32.0-36.0) g/dL RDW Std Deviation 41.1 (36.4-46.3) fL RDW Coeff of Carlos 12.4 (11.5-14.5) % Plt Count 499 H (130-400) K/uL MPV 9.8 (9.4-12.4) fL Immature Gran % (Auto) 4.1 % Neut % (Auto) 39.1 % Lymph % (Auto) 41.4 % [place] % (Auto) 7.2 % Eos % (Auto) 7.2 % Baso % (Auto) 1.0 % Neut # (Auto) 11.85 H (1.40-6.50) K/uL Lymph # (Auto) 12.58 H (1.20-3.40) K/uL [place] # (Auto) 2.20 H (0.11-0.59) K/uL Eos # (Auto) 2.19 H (0.00-0.50) K/uL Baso # (Auto) 0.31 H (0.00-0.20) K/uL Immature Gran # (Auto) 1.23 H (0.01-0.20) K/uL D-Dimer 420 (0-500) ug/L FEU Specimen Type POC pH (7.35-7.45) POC pCO2 (35-46) mmHg POC pO2 (80-95) mmHg POC HCO3 (19-24) cecilia/L POC Base Excess (-9-1.8) cecilia/L POC ABG O2 Sat (90-95) % POC Sodium 139 (135-144) mmol/L Sodium 139 (136-145) mmol/L POC Potassium 4.7 (3.3-5.0) mmol/L Potassium 4.7 (3.5-5.1) mmol/L POC Chloride 104 (101-112) mmol/L Chloride 105 (98-107) mmol/L Carbon Dioxide 25 (21-32) mmol/L POC Total CO2 27 (24-31) mmol/L Anion Gap 9 (3-11) POC Anion Gap 14.0 L (16-25) mmol/L POC BUN 16 (7-18) mg/dl BUN 16 (6-23) mg/dl Creatinine 1.10 (0.6-1.2) mg/dl POC Creatinine 1.1 (0.6-1.3) mg/dl Est Cr Clr Drug Dosing 85.3 ml/min eGFR 72.86 BUN/Creatinine Ratio 14.5 (10-20) Glucose 313 H* (70-99(Fasting)) mg/dl POC Glucose (other) 304 H (70-99) mg/dl Calcium 9.2 (8.6-10.3) mg/dl POC Ioniz Calcium Howard 1.28 (1.12-1.32) mmol/l Total Bilirubin 0.3 (0.2-1.0) mg/dl AST 33 (13-39) U/L ALT 21 (7-52) U/L Alkaline Phosphatase 90 (34-104) U/L Troponin I High Sens 13.2 (0-14) pg/ml Total Protein 7.4 (6.0-8.3) gm/dl Albumin 4.4 (3.4-5.0) gm/dl Globulin 3.0 (2.5-4.0) gm/dl Albumin/Globulin Ratio 1.5 (0.9-2) HCG, Qual Negative (Negative) Adenovirus (PCR) Not Detected (NotDetected) B. pertussis DNA (PCR) Not Detected (NotDetected) B.parapertussis DNA PCR Not Detected (NotDetected) C. pneumoniae DNA (PCR) Not Detected (NotDetected) Coronavirus OC43 (PCR) Not Detected (NotDetected) Coronavirus HKU1 (PCR) Not Detected (NotDetected) Coronavirus 229E (PCR) Not Detected (NotDetected) SARS-CoV-2 (PCR) Not Detected (NotDetected) Coronavirus NL63 (PCR) Not Detected (NotDetected) Human Metapneumovir PCR Not Detected (NotDetected) Influenza Type A (PCR) Not Detected (NotDetected) Influenza Type B (PCR) Not Detected (NotDetected) M. pneumoniae (PCR) Not Detected (NotDetected) Parainfluenza 1 (PCR) Not Detected (NotDetected) Parainfluenza 2 (PCR) Not Detected (NotDetected) Parainfluenza 3 (PCR) Not Detected (NotDetected) Parainfluenza 4 (PCR) Not Detected (NotDetected) RSV (PCR) Not Detected (NotDetected) Entero/Rhino (PCR) Not Detected (NotDetected) 02/09/25 Range/Units 04:43 WBC (4.8-10.8) K/ul RBC (4.20-5.40) M/uL Hgb (12.0-16.0) g/dl POC Hgb 13.9 (12.0-16.0) g/dl Hct (37.0-47.0) % POC Hct 41 (37-47) % MCV (80.0-100.0) fL MCH (25.0-34.0) pg MCHC (32.0-36.0) g/dL RDW Std Deviation (36.4-46.3) fL RDW Coeff of Carlos (11.5-14.5) % Plt Count (130-400) K/uL MPV (9.4-12.4) fL Immature Gran % (Auto) % Neut % (Auto) % Lymph % (Auto) % [place] % (Auto) % Eos % (Auto) % Baso % (Auto) % Neut # (Auto) (1.40-6.50) K/uL Lymph # (Auto) (1.20-3.40) K/uL [place] # (Auto) (0.11-0.59) K/uL Eos # (Auto) (0.00-0.50) K/uL Baso # (Auto) (0.00-0.20) K/uL Immature Gran # (Auto) (0.01-0.20) K/uL D-Dimer (0-500) ug/L FEU Specimen Type Arterial POC pH 7.13 L* (7.35-7.45) POC pCO2 74 H (35-46) mmHg POC pO2 159 H (80-95) mmHg POC HCO3 24 (19-24) cecilia/L POC Base Excess -5.0 (-9-1.8) cecilia/L POC ABG O2 Sat 99.0 H (90-95) % POC Sodium 137 (135-144) mmol/L Sodium (136-145) mmol/L POC Potassium 4.8 (3.3-5.0) mmol/L Potassium (3.5-5.1) mmol/L POC Chloride (101-112) mmol/L Chloride (98-107) mmol/L Carbon Dioxide (21-32) mmol/L POC Total CO2 27 (24-31) mmol/L Anion Gap (3-11) POC Anion Gap (16-25) mmol/L POC BUN (7-18) mg/dl BUN (6-23) mg/dl Creatinine (0.6-1.2) mg/dl POC Creatinine (0.6-1.3) mg/dl Est Cr Clr Drug Dosing ml/min eGFR BUN/Creatinine Ratio (10-20) Glucose (70-99(Fasting)) mg/dl POC Glucose (other) (70-99) mg/dl Calcium (8.6-10.3) mg/dl POC Ioniz Calcium Howard (1.12-1.32) mmol/l Total Bilirubin (0.2-1.0) mg/dl AST (13-39) U/L ALT (7-52) U/L Alkaline Phosphatase (34-104) U/L Troponin I High Sens (0-14) pg/ml Total Protein (6.0-8.3) gm/dl Albumin (3.4-5.0) gm/dl Globulin (2.5-4.0) gm/dl Albumin/Globulin Ratio (0.9-2) HCG, Qual (Negative) Adenovirus (PCR) (NotDetected) B. pertussis DNA (PCR) (NotDetected) B.parapertussis DNA PCR (NotDetected) C. pneumoniae DNA (PCR) (NotDetected) Coronavirus OC43 (PCR) (NotDetected) Coronavirus HKU1 (PCR) (NotDetected) Coronavirus 229E (PCR) (NotDetected) SARS-CoV-2 (PCR) (NotDetected) Coronavirus NL63 (PCR) (NotDetected) Human Metapneumovir PCR (NotDetected) Influenza Type A (PCR) (NotDetected) Influenza Type B (PCR) (NotDetected) M. pneumoniae (PCR) (NotDetected) Parainfluenza 1 (PCR) (NotDetected) Parainfluenza 2 (PCR) (NotDetected) Parainfluenza 3 (PCR) (NotDetected) Parainfluenza 4 (PCR) (NotDetected) RSV (PCR) (NotDetected) Entero/Rhino (PCR) (NotDetected) Administered Medications Propofol (Diprivan) 1,000 mg in 100 mls @ 25.89 mls/hr IV .Q3H52M [facility]; Protocol Stop: 02/12/25 04:14 Last Admin: 02/09/25 08:10 Dose: 50 mcg/kg/min, 25.9 mls/hr Documented By: RODOLFO Co-signed By: NMS Titration: 02/09/25 08:10 Dose: Infused Documented By: CB Co-signed By: NMS Titration: 02/09/25 06:48 Dose: 50 mcg/kg/min, 25.9 mls/hr Documented By: CP Co-signed By: RODOLFO Titration: 02/09/25 06:20 Dose: 50 mcg/kg/min, 25.9 mls/hr Documented By: Titration: 02/09/25 06:00 Dose: 45 mcg/kg/min, 23.3 mls/hr Documented By: Titration: 02/09/25 04:43 Dose: 40 mcg/kg/min, 20.7 mls/hr Documented By: Admin: 02/09/25 04:36 Dose: 20 mcg/kg/min, 10.4 mls/hr Documented By: LIZZY Co-signed By: SAS Ketamine HCl (Ketalar / Nss) 500 mg in 500 mls @ 27.35 mls/hr IV .[id number] [facility]; Protocol Stop: 03/11/25 04:29 Last Infusion: 02/09/25 06:48 Dose: 0.5 mg/kg/hr, 27.4 mls/hr Documented By: CP Co-signed By: CB Admin: 02/09/25 04:45 Dose: 0.5 mg/kg/hr, 27.4 mls/hr Documented By: LIZZY Co-signed By: [facility] Midazolam HCl (Versed) 125 mg in 250 mls @ 2 mls/hr IV .Q96H [facility]; Protocol Stop: 03/11/25 04:59 Last Titration: 02/09/25 06:48 Dose: 1 mg/hr, 2 mls/hr Documented By: MATEO Co-signed By: RODOLFO Admin: 02/09/25 06:23 Dose: 1 mg/hr, 2 mls/hr Documented By: MATEO Co-signed By: JOLIE Parenteral Electrolytes (Plasma-Lyte A Ph 7.4) 1,000 mls @ 999 mls/hr IV .Q1H1M ONE Stop: 02/09/25 08:59 Last Admin: 02/09/25 08:10 Dose: 999 mls/hr Documented By: RODOLFO Miscellaneous ((Mesalamine 1.2 Gram Tablet,Delayed Release (Dr/Ec))~Order Awaiting Action) 1 each N/A QS MENDOZA Stop: 03/11/25 07:59 Last Admin: 02/09/25 08:10 Dose: Not Given Documented By: RODOLFO Discontinued Medications Albuterol (Albut/Ipratrop 3mg/0.5mg Neb 3 Ml Vial) 12 ml NEB ONE STA Stop: 02/09/25 04:11 Last Admin: 02/09/25 04:36 Dose: 12 ml Documented By: LIZZY Albuterol (Albuterol 0.083% Nebu Soln 3 Ml Vial) 12 mg NEB NOW STA; Protocol Stop: 02/09/25 06:08 Last Admin: 02/09/25 06:16 Dose: 12 mg Documented By: KATHE Epinephrine HCl (Epinephrine Adult Auto-Inject 0.3 Mg Syr) 0.3 mg IM NOW STA Stop: 02/09/25 04:23 Last Admin: 02/09/25 06:28 Dose: Not Given Documented By: MATEO Fentanyl Citrate (Fentanyl Citrate Pf 100 Mcg/2 Ml Vial) 100 mcg IV NOW STA Stop: 02/09/25 04:13 Last Admin: 02/09/25 04:33 Dose: 100 mcg Documented By: LIZZY Fentanyl Citrate (Fentanyl Citrate Pf 100 Mcg/2 Ml Vial) 100 mcg IV NOW STA Stop: 02/09/25 04:27 Last Admin: 02/09/25 04:35 Dose: 100 mcg Documented By: LIZZY Fentanyl Citrate (Fentanyl Citrate Pf 100 Mcg/2 Ml Vial) 100 mcg IV NOW STA Stop: 02/09/25 05:20 Last Admin: 02/09/25 05:23 Dose: 100 mcg Documented By: ALESSANDRA Sodium Chloride (Nss) 1,000 mls @ 125 mls/hr IV .Q8H [facility] Stop: 02/12/25 04:14 Last Infusion: 02/09/25 06:28 Dose: Infused Documented By: Admin: 02/09/25 04:38 Dose: 125 mls/hr Documented By: LIZZY Ketamine HCl (Ketamine Hcl Inj 50 Mg/Ml 10 Ml Vial) 55 mg 1 mg/kg (55 mg) IV NOW ONE Stop: 02/09/25 04:30 Last Admin: 02/09/25 04:47 Dose: 55 mg Documented By: LIZZY Co-signed By: JOE Magnesium Sulfate/Dextrose (Magnesium Sulfate 1gm / D5w Bag) 2 gm IV NOW STA Stop: 02/09/25 04:11 Last Admin: 02/09/25 04:37 Dose: 2 gm Documented By: LIZZY Midazolam HCl (Midazolam Hcl 1 Mg/Ml 2ml Vial) 2 mg IV NOW STA Stop: 02/09/25 04:28 Last Admin: 02/09/25 04:35 Dose: 2 mg Documented By: LIZZY Miscellaneous (Rapid Sequence Induction Bag) Confirm Administered Dose 1 each N/A .STK-MED ONE Stop: 02/09/25 04:03 Last Admin: 02/09/25 04:36 Dose: 1 each Documented By: LIZZY Esposito (Stat Iv Infusion Titration Per Protocol) 1 each N/A NOW Stop: 02/09/25 04:59 Last Admin: 02/09/25 05:23 Dose: Not Given Documented By: ALESSANDRA Esposito (Icu Protocol For Hyperglycemia) 1 each N/A ACHS MENDOZA Stop: 02/11/25 07:29 Last Admin: 02/09/25 08:06 Dose: Not Given Documented By: RODOLFO Montelukast Sodium (Montelukast Sodium 10 Mg Tablet) 10 mg NG NOW ONE Stop: 02/09/25 06:08 Last Admin: 02/09/25 06:33 Dose: 10 mg Documented By: MATEO Sodium Bicarbonate (Sodium Bicarb 8.4% Inj 50 Meq/50 Ml Syr) 50 meq IV NOW STA Stop: 02/09/25 04:22 Last Admin: 02/09/25 04:34 Dose: 50 meq Documented By: LIZZY Imaging Data Radiologist's Impression: Chest X-Ray 02/09/25 04:10 EXAM: XR chest 1V portable CLINICAL HISTORY: dyspnea TECHNIQUE: An X-ray image of the chest is obtained in AP projection. COMPARISON: 11/01/2024 CR FINDINGS: An endotracheal tube is seen with its tip about 3 cm above the pj. Pulmonary Parenchyma: Lungs are clear bilaterally. No evidence of consolidation, collapse, or focal opacities. No pulmonary nodules are identified. No evidence of pleural effusion or pleural thickening. Heart and Mediastinum: Heart size and shape are normal. No mediastinal widening or masses. No hilar or mediastinal lymphadenopathy. Bony Thorax: Bony thorax appears intact without fractures or deformities. Soft Tissues: Soft tissues overlying the chest wall are unremarkable. IMPRESSION: 1. An endotracheal tube with its tip about 3 cm above the pj. New. 2. No acute cardiopulmonary abnormalities are identified. Electronically signed by Allan Jimenes 02-09-2025 05:18 AM Discharge Plan Visit Data Chief Complaint: Respiratory Arrest Stated Complaint: RESPIRATORY ARREST ED Provider: Ladonna Simmons Discharge Problem: Respiratory arrest, Status asthmaticus, Hyperglycemia, Tobacco abuse Patient Disposition: Admitted As Inpatient Condition: Critical Discharge Instructions Interventions: ED Discharge Assessment Last Done: 02/09/25 05:09
[2025-02-09] MEDS: ALBUTEROL 0.083% NEBU SOLN 3 ML VIAL NEB STA (06:16)
[2025-02-09] MEDS: MIDAZOLAM HCL 125 MG/250 ML BAG IV SCH (06:23)
[2025-02-09] MEDS: MONTELUKAST SODIUM 10 MG TABLET NG ONE (06:33)
[2025-02-09 06:42] LABS: Appearance Urine Clear (Clear); Bacteria Urine Automated None Seen (None Seen); Epithelial Cell Urine Auto 0-2 /hpf (0-2); Glucose Urine UA Negative (Negative); RBC Urine Automated 0-2 /hpf (0-2)
[2025-02-09 06:46] LABS: Amphetamines+Metham, Urine Pos (Neg); MDMA (Ecstacy), Urine Neg (Neg); Marijuana, Urine Pos (Neg)
[2025-02-09 07:19] LABS: Base Excess VBG -3.8 mEq/L; HCO3 VBG 25 mmol/L; Oxygen Saturation VBG < 60.0 %; PCO2 VBG 61 mmHg (38-50); PO2 VBG 36 mmHg; pH VBG 7.22 (7.36-7.41)
[2025-02-09] MEDS ORDERED: Nursing to Pharmacy Communication SCH ×2 (07:30→09:15)
[2025-02-09] MEDS: PLASMA-LYTE A 1,000 ML IV ONE (08:10)
--- NOTE | 2025-02-09 08:30 | XRay Report ---
KUB HISTORY: OG placement COMPARISON STUDY: None FINDINGS: Nasogastric tube tip is in the mid to distal body of the stomach. IMPRESSION: Nasogastric tube as described. ACT 112: Negative or not required by law. The above report was generated using voice recognition software. It may contain grammatical, syntax o r spelling errors. Electronically signed by: Xavi Randall M.D. 02/09/2025 8:28 AM
[2025-02-09 08:33] LABS: Hemoglobin A1C 5.4 % (4.5-5.6)
[2025-02-09] MEDS: SODIUM CHLORIDE 0.9% 500 ML IV ONE (08:36)
[2025-02-09] MEDS ORDERED: FLUTICASONE/VILANTEROL 100/25MCG 14 PUFFS/INHALER INH SCH (09:00)
[2025-02-09] MEDS: ALBUTEROL 0.5% NEB SOLN 2.5 MG/0.5 ML VIAL NEB SCH ×2 (09:04→14:54)
[2025-02-09] MEDS: HEPARIN SOD 5,000 UNIT/0.5 ML VIAL SQ SCH (09:16)
[2025-02-09 09:29] LABS: Appearance Urine Turbid (Clear); Bacteria Urine Automated None Seen (None Seen); Cast Urine Automated 0-2 /lpf (0-2); Glucose Urine UA Negative (Negative); RBC Urine Automated >20 /hpf (0-2); WBC Urine Automated 0-5 /hpf (0-5)
[2025-02-09 09:35] LABS: iSTAT Art Bld Gas Base Excess -7.0 meg/L (-9-1.8)
[2025-02-09 09:36] LABS: iSTAT Art Bld Gas Base Excess -4.0 meg/L (-9-1.8)
--- NOTE | 2025-02-09 09:53 | CT Scan Report ---
CT head/brain wo con CLINICAL HISTORY: 20 years-old Female with AMS. Acutely altered mental status TECHNIQUE: Multiple axial CT images of the head were obtained without contrast. A dose lowering tech nique was utilized adhering to the principles of ALARA. CT DOSE: 627.18 mGy.cm COMPARISON: None. FINDINGS: Motion degraded exam. No acute intracranial hemorrhage, midline shift, intracranial mass, hydrocephal us, territorial ischemia or abnormal extra-axial collection. The calvarium is intact. Endotracheal tube with secretions noted within the airway. The paranasal sin uses, mastoid air cells, and middle ear cavities are clear. IMPRESSION: No acute intracranial abnormality. ACT 112: Negative or not required by law. The above report was generated using voice recognition software. It may contain grammatical, syntax o r spelling errors. Electronically signed by: Jose Shanks M.D. 02/09/2025 9:51 AM
--- NOTE | 2025-02-09 11:05 | Electrocardiogram Report ---
Test Reason : Blood Pressure : */* mmHG Vent. Rate : 107 BPM Atrial Rate : 107 BPM P-R Int : 138 ms QRS Dur : 102 ms QT Int : 382 ms P-R-T Axes : 31 83 61 degrees QTcB Int : 509 ms Sinus tachycardia Incomplete right bundle branch block Prolonged QT Abnormal ECG When compared with ECG of 09-Feb-2025 05:33, (unconfirmed) Incomplete right bundle branch block is now Present T wave inversion no longer evident in Inferior leads T wave inversion now evident in Anterior leads Confirmed by John Kincaid ([id number]) on 02/09/2025 11:05:34 AM Referred By: REFERRED SELF Confirmed By: John Kincaid
--- NOTE | 2025-02-09 11:27 | Communication Note ---
Date of Service: February 09, 2025 Patient was admitted the same day therefore I will not be billing for this encounter. Admitted for respiratory arrest and asthma exacerbation. Routine vape use. Recetn ER visit February 04 and hospitalization overnight October 31- due to same diagnosis. Recent PFTs May 2024 with mild obstructive lung dysfunction. Patient remains intubated and sedated. No significant wheezing on exam. Boyfriend at bedside confirms cocaine and marijuana use. Urine drug screen positive for fentanyl, amphetamines, benzodiazepines, cocaine, marijuana - possibly this is more of the cause of respiratory arrest as she walked to ambulance and become less responsive and unconscious in the ambulance although this urine was also after ketamine and Versed given by EMS for sedation, Fentanyl given in the ER. No current fevers but will add procalcitonin to labs given high WBC and drug use at increased risk of bacteremia. D-dimer negative on 02/04 and 02/09 therefore less likely pulmonary embolism. No changes in treatment currently. Will defer ventilator management to ICU team.
[2025-02-09] MEDS: Nursing to Pharmacy Communication SCH (12:45)
[2025-02-09] MEDS: MIDAZOLAM BOLUS FROM BAG IV STA (14:59)
[2025-02-09] MEDS: PLASMA-LYTE A 500 ML IV ONE (15:56)
[2025-02-09] MEDS: PLASMA-LYTE A 1,000 ML IV SCH (15:56)
[2025-02-09] MEDS ORDERED: ARFORMOTEROL TART 15MCG/2ML VIAL INH SCH (19:00)
[2025-02-09] MEDS ORDERED: MIDAZOLAM HCL 5 MG/ML 2ML VIAL IV ONE (19:33)
[2025-02-09] MEDS: FORMOTEROL 20 MCG/2 ML VIAL INH SCH (19:36)
[2025-02-09] MEDS: BUDESONIDE 0.5 MG/2 ML VIAL (PULMICORT) NEB SCH (19:36)
[2025-02-09] MEDS: ESCITALOPRAM OXALATE 10 MG TAB PO SCH (21:24)
[2025-02-10 04:17] LABS: iSTAT Art Bld Gas Base Excess -3.0 meg/L (-9-1.8)
[2025-02-10 04:45] LABS: Hematocrit (blood only) 36.1 % (37.0-47.0); Hemoglobin 12.2 g/dl (12.0-16.0); Immature Granulocytes # (auto) 0.11 K/uL (0.01-0.20); Immature Granulocytes % (auto) 0.6 %; Mean Corpuscular Hemoglobin 29.8 pg (25.0-34.0); Mean Corpuscular Volume 88.3 fL (80.0-100.0); Platelet Count 344 K/uL (130-400); RDW Standard Deviation 42.6 fL (36.4-46.3); Red Blood Count 4.09 M/uL (4.20-5.40); White Blood Count 19.13 K/ul (4.8-10.8)
[2025-02-10 05:03] LABS: Anion Gap 6.0 (3-11); Blood Urea Nitrogen 11.0 mg/dl (6-23); Calcium 8.4 mg/dl (8.6-10.3); Carbon Dioxide 23.0 mmol/L (21-32); Chloride 108.0 mmol/L (98-107); Creatinine Clr Calc Pharmacy 125.1 ml/min; Glucose 129.0 mg/dl (70-99(Fasting)); Magnesium 2.5 mg/dl (1.7-2.4); Potassium 4.1 mmol/L (3.5-5.1); Sodium 137.0 mmol/L (136-145)
--- NOTE | 2025-02-10 05:23 | XRay Report ---
EXAM: XR chest 1V portable CLINICAL HISTORY: hypoxemia, asthma TECHNIQUE: An X-ray image of the chest is obtained in AP projection. COMPARISON: 02/09/2025 FINDINGS: An endotracheal tube is seen with its tip about 3.5 cm above the pj (unchanged). An NGT is inserted with distal part and fenestration below left hemidiaphragm. Tip not seen. Pulmonary Parenchyma: Interval development of blunting of bilateral costophrenic angles with bilateral lower zone opacifications suggestive of pleural effusions with subsegmental collapse/consolidation (new). Bilateral basal atelactatic bands (new) Heart and Mediastinum: Heart size and shape are normal. No mediastinal widening or masses. No hilar or mediastinal lymphadenopathy. Bony Thorax: Bony thorax appears intact without fractures or deformities. Soft Tissues: Soft tissues overlying the chest wall are unremarkable. IMPRESSION: 1. An endotracheal tube is seen with its tip about 3.5 cm above the pj (unchanged). 2. Interval development of blunting of bilateral costophrenic angles with bilateral lower zone opacifications suggestive of pleural effusions with subsegmental collapse/consolidation (new). 3. An NGT is inserted with distal part and fenestration below left hemidiaphragm. Tip not seen. (new) Electronically signed by Allan Jimenes 02-10-2025 05:22 AM
--- NOTE | 2025-02-10 06:00 | Communication Note ---
Date of Service: February 10, 2025 Pt with increasing oxygen requirements throughout the night. Breath sounds diminished at bases, no expiratory wheezing. No secretions on in-line. No autoPE EP. PEEP increased to 8 with some improvement. Requiring FiO2 0.6. CXR taken showing atelectasis and bilateral pleural effusions. Peripheral edema noted BUE > BLE. UOP suboptimal. Fluid balance +3.4L. UOP improved slightly with PEEP increase but will add 1 time dose of 20mg IV Lasix to optimize for extubation today. Hopefully vent requirements improve with this. Coding Level of Care Code None
[2025-02-10] MEDS: FUROSEMIDE INJ 20 MG/2 ML VIAL IV ONE (06:04)
[2025-02-10] MEDS ORDERED: Nursing to Pharmacy Communication SCH ×2 (09:15→17:00)
[2025-02-10] MEDS ORDERED: PIPERACILLIN/TAZOBACTAM 4.5 GM/100 ML BAG IV STA (09:31)
--- NOTE | 2025-02-10 09:45 | Hospitalist Progress Note ---
Date of Service February 10, 2025 Assessment & Plan (1) Respiratory arrest: (2) Asthma exacerbation: (3) ADHD: Plan 20-year-old female with history of asthma, respiratory status progressively worsening over the last several days, patient presents with respiratory arrest status post intubation mechanical ventilation #Respiratory arrest/asthma/status asthmaticuspatient intubated, sedated. Patient with hypercapnia, improving (pCO2 = 74 at present) Admit to MICU Procalcitonin negative on admission Propofol, ketamine, Versed drips now weaned off Continue BiPAP - ongoing management per ICU team albuterol neb every 6 hours Albuterol every 2 hours as needed Continue Breo Solu-Medrol 40 mg IV 3 times daily #Elevated blood sugarno history of diabetes. Patient was just given steroids Check hemoglobin A1c 5.4 ICU protocol for hypo/hyperglycemia #ADHD/anxiety/depression/mental health Continue Abilify 10 mg p.o. every afternoon Continue escitalopram 10 mg p.o. every afternoon #Ulcerative colitis Continue mesalamine VTE Prophylaxis - heparin 5000 units SQ BID Disposition - continue on ICU Admission and Anticipated Discharge Date Admission Date: February 09, 2025 Subjective Patient extubated this morning and doing well on BiPAP. Only able to answer questions shaking and nodding head. She denies any pain. Ongoing shortness of breath. Review of Systems Review of Systems: All systems reviewed & are unremarkable except as noted in HPI & below Physical Exam Respiratory: + labored breathing and + uses accessory muscles Auscultation: + wheezes (expiratory throughout); no diminished lung sounds (increased breath sounds from yesterday) Cardiovascular: Rate/Rhythm: regular rhythm and + tachycardic Heart Sounds: no murmur Extremities: no calf tenderness and no pedal edema Gastrointestinal (Abdomen): normal bowel sounds, soft, nontender, no hepatosplenomegaly Neurologic: moves all extremities and awake Psychiatric: Orientation: alert Results & Data Results & Data Vital Signs (Past 12 Hours) Vital Signs Temp Pulse Resp BP Pulse Ox Pulse Ox O2 Del Method 02/10/25 08:10 104 H 30 H 92 02/10/25 07:45 37.2 C 02/10/25 07:36 105 H 21 97 02/10/25 06:07 94 02/10/25 05:51 102 H 19 124/71 92 Mechanical Vent 02/10/25 05:40 02/10/25 05:21 37.1 C 103 H 22 114/62 92 Mechanical Vent 02/10/25 04:45 02/10/25 04:22 107 H 23 113/67 92 Mechanical Vent 02/10/25 04:00 02/10/25 03:51 107 H 19 116/64 93 Mechanical Vent 02/10/25 03:21 37.4 C 107 H 20 133/78 94 Mechanical Vent 02/10/25 02:51 109 H 23 120/63 93 Mechanical Vent 02/10/25 02:33 113 H 26 H 92 02/10/25 02:21 111 H 23 124/64 93 Mechanical Vent 02/10/25 01:51 113 H 21 114/61 92 Mechanical Vent 02/10/25 01:21 108 H 21 121/63 93 Mechanical Vent 02/10/25 00:51 109 H 22 112/64 93 Mechanical Vent 02/10/25 00:00 02/10/25 00:00 113 H 02/09/25 23:51 113 H 21 124/59 L 92 Mechanical Vent 02/09/25 23:21 112 H 18 117/63 91 Mechanical Vent 02/09/25 22:57 113 H 26 H 92 02/09/25 22:51 112 H 24 124/59 L 91 Mechanical Vent 02/09/25 22:21 114 H 19 117/65 92 Mechanical Vent 02/09/25 21:51 109 H 24 113/64 92 Mechanical Vent O2 Del Method FiO2 02/10/25 08:10 40 02/10/25 07:45 02/10/25 07:36 50 02/10/25 06:07 Mechanical Vent 02/10/25 05:51 50 02/10/25 05:40 50 02/10/25 05:21 50 02/10/25 04:45 50 02/10/25 04:22 50 02/10/25 04:00 50 02/10/25 03:51 50 02/10/25 03:21 35 02/10/25 02:51 35 02/10/25 02:33 35 02/10/25 02:21 35 02/10/25 01:51 35 02/10/25 01:21 35 02/10/25 00:51 35 02/10/25 00:00 35 02/10/25 00:00 02/09/25 23:51 35 02/09/25 23:21 35 02/09/25 22:57 35 02/09/25 22:51 35 02/09/25 22:21 35 02/09/25 21:51 35 PG Care Time/CCT Total # of Minutes Spent Total Time Spent with Patient: Total time spent is greater than 50% in coordination of care (as documented) at patient's floor/unit and/or counseling patient: Coding Level of Care Code 61915 SUB INP/OBS CARE 3/50MIN Diagnoses Respiratory arrest R09.2 Asthma exacerbation J45.41 Asthma persistence: persistent Asthma severity: moderate ADHD F90.9 (2) Asthma exacerbation Asthma persistence: persistent Asthma severity: moderate Qualified Code(s): J45.41 - Moderate persistent asthma with (acute) exacerbation
--- NOTE | 2025-02-10 11:51 | Electrocardiogram Report ---
Test Reason : Blood Pressure : */* mmHG Vent. Rate : 105 BPM Atrial Rate : 105 BPM P-R Int : 134 ms QRS Dur : 102 ms QT Int : 364 ms P-R-T Axes : -16 42 -20 degrees QTcB Int : 481 ms Sinus tachycardia Abnormal ECG When compared with ECG of 04-Feb-2025 09:22, Incomplete right bundle branch block is no longer Present Inverted T waves have replaced nonspecific T wave abnormality in Inferior leads Confirmed by John Kincaid ([id number]) on 02/10/2025 11:50:27 AM Referred By: REFERRED SELF Confirmed By: John Kincaid
[2025-02-10] MEDS: AMPICILLIN/SULBACTAM SOD 3,000 MG/100 ML BAG IV SCH (13:13)
--- NOTE | 2025-02-10 13:38 | Critical Care Progress Note ---
Date of Service February 10, 2025 Assessment & Plan (1) Status asthmaticus: (2) Respiratory arrest: (3) Respiratory acidosis: (4) Increased anion gap metabolic acidosis: (5) Multifocal pneumonia: Plan Reason Critically Ill: 20 YOF presents intubated following call to EMS for asthma attack. To the ICU for continued management of ventilation and oxygenation and status asthmaticus. Neuro - [facility] ICU: CORRIE Ketamine, propofol. Midazolam to be added -- Active drug abuse UDS positive for cocaine as well as marijuana It is also positive for amphetamine benzodiazepine as well as fentanyl which could be because it was done after intubation -- Anxiety with mood disorder On aripiprazole as well as escitalopram at home Cardiac - No acute needs Respiratory - Status Asthmaticus, respiratory arrest requiring emergent intubation and mechanical ventilation Spirometry 05/18/2024 personally reviewed: Mild obstructive lung dysfunction FVC 4.50 L 111%, FEV1 3.08 L 87%, FEV1/FVC 68% --Status asthmaticus Got intubated 02/09/2025 in the ER Respiratory BioFire negative for everything on 02/09/2025 -- History of asthma Moderate to severe persistent Absolute eosinophil count 2190 on 02/09/2025 Labs 05/18/2024: IgE 456, RAST panel negative for everything including Aspergillus IgE Tryptase 1.3 GI - NPO- place OGT -- History of ulcerative colitis On extended release mesalamine at home RENAL/LYTES - no acute needs -- S/p lactic acidosis -- S/p KAREN Monitor BUN/creatinine Avoid nephrotoxic medications Strict ins and outs ENDO - -- ICU hyperglycemic protocol HEME - -- Monitor H&H ID - -- Pneumonia More dominant on the left side Procalcitonin 2.35 --Prophylaxis VTE: Heparin GI: None Lines: Peripheral Diet: N.p.o. Plan: In/out: +3.32 L, urine output 1875 Did get Lasix overnight. Will keep a close eye on urine output. Will consider another dose of Lasix if need be. Patient is needing a lot of sedation because of the history of drug abuse. Will try to give a trial of SBT while the patient is on ketamine and discontinue ketamine on extubation to BiPAP. Continue with montelukast She will be a good candidate for Biologics as an outpatient if she is compliant with her inhalers Patient's mother who was at bedside was updated regarding patient's condition. I have personally spent 38 minutes of critical care time in the direct management of this patient. This is a life/limb threatening event. This includes time spent evaluating patient, direct bedside care, chart review, placing orders, interpretation of diagnostic studies, discussion with consultants, patient, and family members, as well as other required patient management activities. This time is exclusive of all separately billable procedures, and teaching time and separate from and in addition to any other critical care service time. Please note the above document was generated using voice recognition software. It may contain grammatical, syntax or spelling errors. Admission and Anticipated Discharge Date Admission Date: February 09, 2025 Subjective Patient seen and examined at bedside. No acute distress Overnight patient's oxygen requirement went up. She had a repeat chest x-ray done which showed bilateral lower lobe opacities, patient likely had aspiration event. Has been afebrile Was on ketamine 1.5, propofol 50, midazolam 2 at the time of examination Patient's family were also in the room Review of Systems 2 Review of Systems: Unobtainable due to endotracheal tube Physical Exam 2 Physical Exam: Constitutional: No acute distress HEENT: EOMI, sluggish pupillary response Respiratory system: Decreased air entry bilaterally, no wheeze, no rhonchi, positive crackles bilateral lower lobe CVS: S1-S2 positive, no murmurs or gallops Abdomen: Soft, nontender, nondistended, positive bowel sounds x4 Extremities: +2 pulses bilaterally radialis/ dorsalis pedis, no cyanosis, no edema Neuro: Breathing over the vent, moving all extremities to command Psych: Unable to assess G/U: Positive Joseph Skin: no rashes, warm and dry Lymphatic: no cervical or axillary lymphadenopathy Results & Data Results & Data Vital Signs (Past 12 Hours) Vital Signs Temp Pulse Pulse Resp BP Pulse Ox Pulse Ox 02/10/25 12:56 79 18 96 02/10/25 11:00 105 H 22 95 02/10/25 11:00 36.6 C 02/10/25 10:51 115/74 02/10/25 10:51 115/74 02/10/25 10:33 100 H 21 96 02/10/25 10:21 126/73 02/10/25 10:21 126/73 02/10/25 10:15 101 H 25 H 96 02/10/25 10:12 94 H 19 97 02/10/25 09:51 95 H 18 97 02/10/25 09:51 124/66 02/10/25 09:51 124/66 02/10/25 09:12 96 H 12 94 02/10/25 08:30 02/10/25 08:21 105 H 29 H 92 02/10/25 08:21 108/69 02/10/25 08:10 104 H 30 H 92 02/10/25 08:00 118 H 17 94 02/10/25 08:00 102 H 02/10/25 07:51 121/63 02/10/25 07:48 105 H 24 93 02/10/25 07:45 37.2 C 02/10/25 07:36 105 H 21 97 02/10/25 07:21 119/63 02/10/25 07:06 102 H 23 91 02/10/25 07:03 101 H 18 93 02/10/25 06:51 117/70 02/10/25 06:51 117/70 02/10/25 06:51 104 H 20 93 02/10/25 06:07 94 02/10/25 06:03 106 H 24 94 02/10/25 05:54 105 H 23 94 02/10/25 05:51 102 H 19 124/71 92 02/10/25 05:40 02/10/25 05:21 37.1 C 103 H 22 114/62 92 02/10/25 04:45 02/10/25 04:22 107 H 23 113/67 92 02/10/25 04:00 02/10/25 03:51 107 H 19 116/64 93 02/10/25 03:21 37.4 C 107 H 20 133/78 94 02/10/25 02:51 109 H 23 120/63 93 02/10/25 02:33 113 H 26 H 92 02/10/25 02:21 111 H 23 124/64 93 02/10/25 01:51 113 H 21 114/61 92 O2 Del Method O2 Del Method O2 Flow Rate FiO2 02/10/25 12:56 Oxymask 4 02/10/25 11:00 Oxymask 02/10/25 11:00 02/10/25 10:51 02/10/25 10:51 02/10/25 10:33 08/07/25 10:21 02/10/25 10:21 02/10/25 10:15 02/10/25 10:12 02/10/25 09:51 BiPAP 40 02/10/25 09:51 02/10/25 09:51 02/10/25 09:12 02/10/25 08:30 BiPAP 40 02/10/25 08:21 02/10/25 08:21 02/10/25 08:10 40 02/10/25 08:00 02/10/25 08:00 02/10/25 07:51 02/10/25 07:48 02/10/25 07:45 02/10/25 07:36 50 02/10/25 07:21 02/10/25 07:06 02/10/25 07:03 02/10/25 06:51 02/10/25 06:51 02/10/25 06:51 02/10/25 06:07 Mechanical Vent 02/10/25 06:03 02/10/25 05:54 02/10/25 05:51 Mechanical Vent 50 02/10/25 05:40 50 02/10/25 05:21 Mechanical Vent 50 02/10/25 04:45 50 02/10/25 04:22 Mechanical Vent 50 02/10/25 04:00 50 02/10/25 03:51 Mechanical Vent 50 02/10/25 03:21 Mechanical Vent 35 02/10/25 02:51 Mechanical Vent 35 02/10/25 02:33 35 02/10/25 02:21 Mechanical Vent 35 02/10/25 01:51 Mechanical Vent 35 Laboratory Results 02/10/25 04:18 02/10/25 04:18 Coding Level of Care Code 41038 CRITICAL CARE 1ST 30-74M Diagnoses Status asthmaticus J45.902 Respiratory arrest R09.2 Respiratory acidosis E87.29 Increased anion gap metabolic acidosis E87.29 Multifocal pneumonia J18.8
[2025-02-10] MEDS ORDERED: PIPERACILLIN/TAZOBACTAM 4.5 GM/100 ML BAG IV SCH (14:30)
[2025-02-10] MEDS ORDERED: ALBUT/IPRATROP 3MG/0.5MG NEB 3 ML VIAL NEB PRN (16:20)
[2025-02-10] MEDS ORDERED: STAT IV Infusion **Titration per Protocol STA (16:21)
[2025-02-10] MEDS: ALBUT/IPRATROP 3MG/0.5MG NEB 3 ML VIAL ONE (16:27)
[2025-02-10] MEDS: MAGNESIUM SULFATE / D5W 1 GM/100 ML BAG IV SCH (16:32)
[2025-02-10] MEDS: dexMEDEtomidine 200 MCG/50 ML BAG IV SCH (16:32)
--- NOTE | 2025-02-10 16:43 | XRay Report ---
Chest radiograph, one view History: Wheezing Comparison: Same-day radiograph Findings: Single AP view of the chest performed. No focal consolidation or pleural effusion. No pneumothorax. There does appear to be narrowing of the subglottic airway. The cardiomediastinal silhouette is within normal limits. Normal pulmonary vascularity. No evidence for lymphadenopathy. No visualized bony or soft tissue abnormality. Impression: Apparent narrowing of the subglottic airway. Clear lungs. Electronically signed by John Lockhart 02-10-2025 4:43 PM
[2025-02-10] MEDS: PROCHLORPERAZINE 5 MG in SYRINGE 4 ML IV ONE (16:51)
[2025-02-10] MEDS: MONTELUKAST SODIUM 10 MG TABLET PO SCH (20:29)
[2025-02-11 04:26] LABS: Hematocrit (blood only) 36.0 % (37.0-47.0); Hemoglobin 11.6 g/dl (12.0-16.0); Immature Granulocytes # (auto) 0.12 K/uL (0.01-0.20); Immature Granulocytes % (auto) 0.8 %; Mean Corpuscular Hemoglobin 29.1 pg (25.0-34.0); Mean Corpuscular Volume 90.5 fL (80.0-100.0); Platelet Count 259 K/uL (130-400); RDW Standard Deviation 43.2 fL (36.4-46.3); Red Blood Count 3.98 M/uL (4.20-5.40); White Blood Count 14.90 K/ul (4.8-10.8)
[2025-02-11 04:43] LABS: Anion Gap 5.0 (3-11); Blood Urea Nitrogen 18.0 mg/dl (6-23); Calcium 8.6 mg/dl (8.6-10.3); Carbon Dioxide 24.0 mmol/L (21-32); Chloride 108.0 mmol/L (98-107); Creatinine Clr Calc Pharmacy 145.8 ml/min; Glucose 116.0 mg/dl (70-99(Fasting)); Magnesium 2.3 mg/dl (1.7-2.4); Potassium 4.5 mmol/L (3.5-5.1); Sodium 137.0 mmol/L (136-145)
[2025-02-11] MEDS: MAGNESIUM SULFATE / D5W 1 GM/100 ML BAG IV ONE (07:44)
[2025-02-11] MEDS ORDERED: Nursing to Pharmacy Communication SCH (07:45)
--- NOTE | 2025-02-11 07:57 | Critical Care Progress Note ---
Date of Service February 11, 2025 Assessment & Plan (1) Status asthmaticus: (2) Respiratory arrest: (3) Respiratory acidosis: (4) Increased anion gap metabolic acidosis: (5) Multifocal pneumonia: Plan Reason Critically Ill: 20 YOF presents intubated following call to EMS for asthma attack. To the ICU for continued management of ventilation and oxygenation and status asthmaticus. Neuro - [facility] ICU: CORRIE Ketamine, propofol. Midazolam to be added -- Active drug abuse UDS positive for cocaine as well as marijuana It is also positive for amphetamine benzodiazepine as well as fentanyl which could be because it was done after intubation -- Anxiety with mood disorder On aripiprazole as well as escitalopram at home Cardiac - No acute needs Respiratory - Status Asthmaticus, respiratory arrest requiring emergent intubation and mechanical ventilation Spirometry 05/18/2024 personally reviewed: Mild obstructive lung dysfunction FVC 4.50 L 111%, FEV1 3.08 L 87%, FEV1/FVC 68% --Status asthmaticus Got intubated 02/09/2025 in the ER --> extubated 02/10/2025 Respiratory BioFire negative for everything on 02/09/2025 -- History of asthma Moderate to severe persistent Absolute eosinophil count 2190 on 02/09/2025 Labs 05/18/2024: IgE 456, RAST panel negative for everything including Aspergillus IgE Tryptase 1.3 GI - NPO- place OGT -- History of ulcerative colitis On extended release mesalamine at home RENAL/LYTES - no acute needs -- S/p lactic acidosis -- S/p KAREN Monitor BUN/creatinine Avoid nephrotoxic medications Strict ins and outs ENDO - -- ICU hyperglycemic protocol HEME - -- Monitor H&H ID - -- Pneumonia More dominant on the left side Procalcitonin 2.35 --Prophylaxis VTE: Heparin GI: None Lines: Peripheral Diet: N.p.o. Plan: In/out: -892, urine output 1425 Will add Ativan 0.5 mg every 8 hours to be used as needed for anxiety Compazine for cough if the patient is not able to tolerate p.o. Will do official swallow eval. Will get CT of the neck as well to see the if there is anything causing her to have difficulty swallowing. Chest x-ray from yesterday showed questionable subglottic narrowing. I compared that x-ray to the 1 which was done in October 2024 and patient had something similar at that time. She does not have stridor on physical exam Patient's mother who was at bedside was updated regarding patient's condition. I spent more than 50 minutes looking in the chart, images, discussing the plan of care with the patient, RN as well as primary team This includes time spent evaluating patient, direct bedside care, chart review, placing orders, interpretation of diagnostic studies, discussion with consultants, patient, and family members, as well as other required patient management activities. This time is exclusive of all separately billable procedures, and teaching time and separate from and in addition to any other critical care service time. Please note the above document was generated using voice recognition software. It may contain grammatical, syntax or spelling errors. Admission and Anticipated Discharge Date Admission Date: February 09, 2025 Subjective Patient seen and examined at bedside. No acute distress. She was on Precedex all night When the Precedex was stopped early in the morning patient again had a coughing fit leading to desaturation When I saw the patient she had already gotten 0.5 of Ativan. She was saturating 99% on 15 L oxy mask. I was able to take her off oxygen and she was saturating well on room air Complained of some sore throat. No chest pain. Denied any headache or blurry vision. Review of Systems 2 Review of Systems: All systems reviewed & are unremarkable except as noted in Subjective Physical Exam 2 Physical Exam: Constitutional: No acute distress HEENT: EOMI, PERRLA, no stridor Respiratory system: Decreased air entry bilaterally, no wheeze, no rhonchi, no crackles CVS: S1-S2 positive, no murmurs or gallops Abdomen: Soft, nontender, nondistended, positive bowel sounds x4 Extremities: +2 pulses bilaterally radialis/ dorsalis pedis, no cyanosis, no edema Neuro: Awake alert oriented to self and place Psych: Normal mood and affect G/U: Positive Joseph Skin: no rashes, warm and dry Lymphatic: no cervical or axillary lymphadenopathy Results & Data Results & Data Vital Signs (Past 12 Hours) Vital Signs Temp Pulse Pulse Resp BP BP Pulse Ox 02/11/25 07:15 93 H 26 H 96 02/11/25 06:21 71 19 107/69 93 02/11/25 05:21 68 19 109/67 94 02/11/25 04:21 36.8 C 62 17 106/64 95 02/11/25 03:21 75 19 110/67 94 02/11/25 02:21 76 19 99/58 L 93 02/11/25 01:45 16 95 02/11/25 01:21 75 17 114/67 94 02/11/25 00:21 36.7 C 60 15 103/71 98 02/11/25 00:00 65 02/10/25 23:21 66 15 104/61 97 02/10/25 22:21 72 15 101/67 94 02/10/25 21:21 86 15 107/68 97 02/10/25 20:21 80 18 116/71 95 O2 Del Method O2 Flow Rate 02/11/25 07:15 Oxymask 15 02/11/25 06:21 Oxymask 2 02/11/25 05:21 Oxymask 2 02/11/25 04:21 Oxymask 2 02/11/25 03:21 Oxymask 2 02/11/25 02:21 Oxymask 2 02/11/25 01:45 Oxymask 3 02/11/25 01:21 Oxymask 3 02/11/25 00:21 Oxymask 3 02/11/25 00:00 02/10/25 23:21 Oxymask 3 02/10/25 22:21 Oxymask 3 02/10/25 21:21 Oxymask 3 02/10/25 20:21 Oxymask 3 Laboratory Results 02/11/25 03:58 02/11/25 03:58 Coding Level of Care Code 51226 SUB INP/OBS CARE 3/50MIN Diagnoses Status asthmaticus J45.902 Respiratory arrest R09.2 Respiratory acidosis E87.29 Increased anion gap metabolic acidosis E87.29 Multifocal pneumonia J18.8
--- NOTE | 2025-02-11 10:51 | CT Scan Report ---
CT OF THE NECK WITHOUT CONTRAST CLINICAL HISTORY: Difficulty swallowing. r/o stenosis COMPARISON STUDY: Chest radiograph February 10, 2025. TECHNIQUE: Axial images of the neck were obtained without IV contrast. Sagittal and coronal reformats were viewed. A dose lowering technique was utilized adhering to the principles of ALARA. FINDINGS: No cervical lymphadenopathy or mass is identified on unenhanced exam. There are no fluid co llections within the neck. There is no prevertebral edema. The epiglottis is normal. The parotid and submandibular glands are no rmal. Visualized lung apices are unremarkable. There is mild narrowing of the subglottic airway on im age 266 of 397. The airway is otherwise unremarkable. No high-grade narrowing is present. IMPRESSION: 1. Mild narrowing of the subglottic airway, a nonspecific finding. No severe airway narrowing. 2. Otherwise, unremarkable unenhanced CT of the neck. ACT 112: Negative or not required by law. Electronically signed by: Michael Marcos M.D. 02/11/2025 10:49 AM
--- NOTE | 2025-02-11 11:30 | Fluoroscopy Report ---
FL video swallow CLINICAL HISTORY: r/o aspiration s/p extubation. TECHNIQUE: Video fluoroscopic evaluation of swallowing was performed in the AP and lateral projection s by the speech pathology staff. The patient is fed nectar-thick and thin liquid barium, a barium coa emily wafer, and barium pudding. FLUOROSCOPY TIME: 53 seconds. COMPARISON: None FINDINGS: There is aspiration with thin liquid which improves with chin tuck. IMPRESSION: Aspiration. ACT 112: Negative or not required by law. Electronically signed by: Xavi Randall M.D. 02/11/2025 11:29 AM
--- NOTE | 2025-02-11 13:01 | Hospitalist Progress Note ---
Date of Service February 11, 2025 Assessment & Plan (1) Respiratory arrest: (2) Asthma exacerbation: (3) ADHD: (4) Aspiration pneumonia: Plan 20-year-old female with history of asthma, respiratory status progressively worsening over the last several days, patient presents with respiratory arrest status post intubation mechanical ventilation #Respiratory arrest/asthma/status asthmaticus/aspiration pneumoniapatient intubated, sedated. Patient with hypercapnia, improving (pCO2 = 74 on admission) stable for transfer to med/surg Procalcitonin negative on admission, positive on Day#1, now on Unasyn for aspiration pneumonia, consider step down to Augmentin tomorrow Propofol, ketamine, Versed and Precedex now weaned off Aim O2 sats > 90% albuterol neb every 6 hours Albuterol every 2 hours as needed Continue budesonide/formoterol Nebs BID Solu-Medrol 40 mg IV reduce to BID Appreciate ongoing pulm/ICU care #Moderate pharyngeal dysphagia Appreciate speech management of this, aspiration precautions as ordered. Follow up with [facility] on discharge #Elevated blood sugarno history of diabetes. Patient was just given steroids Check hemoglobin A1c 5.4 ICU protocol for hypo/hyperglycemia #ADHD/anxiety/depression/mental health Continue Abilify 10 mg p.o. every afternoon Continue escitalopram 10 mg p.o. every afternoon #Ulcerative colitis Continue mesalamine VTE Prophylaxis - heparin 5000 units SQ BID Disposition - stable for transfer to med/surg Admission and Anticipated Discharge Date Admission Date: February 09, 2025 Subjective Patient doing much better today. On room air. Some coughing after eating with aspiration. Much improved yesterday and off Precedex this morning. Physical Exam Constitutional: WD/WN, vitals as above ENMT: external ear and nose normal, oropharynx normal Respiratory: normal respiratory effort; no respiratory distress Auscultation: + crackles (bibasal); no wheezes Cardiovascular: Rate/Rhythm: regular rate and regular rhythm Heart Sounds: no murmur Extremities: normal capillary refill; no calf tenderness and no pedal edema Results & Data Results & Data Vital Signs (Past 12 Hours) Vital Signs Temp Pulse Pulse Resp BP BP Pulse Ox 02/11/25 12:00 84 22 118/67 93 02/11/25 11:06 89 22 92 02/11/25 10:09 84 24 97 02/11/25 09:39 94 H 18 93 02/11/25 09:21 119/83 02/11/25 09:21 119/83 02/11/25 09:18 73 22 95 02/11/25 09:00 87 21 97 02/11/25 08:30 74 19 97 02/11/25 08:22 103/70 02/11/25 08:22 103/70 02/11/25 08:22 103/70 02/11/25 08:21 74 19 99 02/11/25 08:18 72 17 99 02/11/25 08:00 02/11/25 08:00 93 H 02/11/25 07:30 78 24 95 02/11/25 07:21 121/82 02/11/25 07:18 84 19 85 L 02/11/25 07:15 93 H 26 H 96 02/11/25 07:03 110 H 30 H 92 02/11/25 06:21 71 19 107/69 93 02/11/25 05:21 68 19 109/67 94 02/11/25 04:21 36.8 C 62 17 106/64 95 02/11/25 03:21 75 19 110/67 94 02/11/25 02:21 76 19 99/58 L 93 02/11/25 01:45 16 95 02/11/25 01:21 75 17 114/67 94 O2 Del Method O2 Flow Rate 02/11/25 12:00 02/11/25 11:06 02/11/25 10:09 02/11/25 09:39 02/11/25 09:21 02/11/25 09:21 02/11/25 09:18 02/11/25 09:00 Room Air 02/11/25 08:30 02/11/25 08:22 02/11/25 08:22 02/11/25 08:22 02/11/25 08:21 02/11/25 08:18 02/11/25 08:00 Oxymask 15 02/11/25 08:00 02/11/25 07:30 02/11/25 07:21 02/11/25 07:18 02/11/25 07:15 Oxymask 15 02/11/25 07:03 Oxymask 15 02/11/25 06:21 Oxymask 2 02/11/25 05:21 Oxymask 2 02/11/25 04:21 Oxymask 2 02/11/25 03:21 Oxymask 2 02/11/25 02:21 Oxymask 2 02/11/25 01:45 Oxymask 3 02/11/25 01:21 Oxymask 3 PG Care Time/CCT Total # of Minutes Spent Total Time Spent with Patient: Total time spent is greater than 50% in coordination of care (as documented) at patient's floor/unit and/or counseling patient: Coding Level of Care Code 99367 SUB INP/OBS CARE 3/50MIN Diagnoses Respiratory arrest R09.2 Asthma exacerbation J45.41 Asthma persistence: persistent Asthma severity: moderate ADHD F90.9 Aspiration pneumonia J69.0 (2) Asthma exacerbation Asthma persistence: persistent Asthma severity: moderate Qualified Code(s): J45.41 - Moderate persistent asthma with (acute) exacerbation
[2025-02-11] MEDS: MESALAMINE 1.2 GM TABDR PO SCH (14:08)
[2025-02-11] MEDS: ALBUTEROL 0.5% NEB SOLN 2.5 MG/0.5 ML VIAL NEB SCH (22:31)
[2025-02-12 06:52] VITALS: RESP 16
[2025-02-12 06:59] LABS: Hematocrit (blood only) 38.4 % (37.0-47.0); Hemoglobin 12.5 g/dl (12.0-16.0); Immature Granulocytes # (auto) 0.73 K/uL (0.01-0.20); Immature Granulocytes % (auto) 4.9 %; Mean Corpuscular Hemoglobin 29.1 pg (25.0-34.0); Mean Corpuscular Volume 89.5 fL (80.0-100.0); Platelet Count 284 K/uL (130-400); RDW Standard Deviation 41.1 fL (36.4-46.3); Red Blood Count 4.29 M/uL (4.20-5.40); White Blood Count 15.02 K/ul (4.8-10.8)
[2025-02-12 07:33] LABS: Anion Gap 8.0 (3-11); Blood Urea Nitrogen 18.0 mg/dl (6-23); Calcium 8.7 mg/dl (8.6-10.3); Carbon Dioxide 23.0 mmol/L (21-32); Chloride 105.0 mmol/L (98-107); Creatinine Clr Calc Pharmacy 160.3 ml/min; Glucose 171.0 mg/dl (70-99(Fasting)); Magnesium 1.9 mg/dl (1.7-2.4); Potassium 4.4 mmol/L (3.5-5.1); Sodium 136.0 mmol/L (136-145)
--- NOTE | 2025-02-12 07:44 | Pulmonology Progress Note ---
Date of Service February 12, 2025 Assessment & Plan (1) Status asthmaticus: (2) Respiratory acidosis: (3) Multifocal pneumonia: (4) Aspiration into airway: Plan Reason Critically Ill: 20 YOF presents intubated following call to EMS for asthma attack. To the ICU for continued management of ventilation and oxygenation and status asthmaticus. Spirometry 05/18/2024 personally reviewed: Mild obstructive lung dysfunction FVC 4.50 L 111%, FEV1 3.08 L 87%, FEV1/FVC 68% --Status asthmaticus Got intubated 02/09/2025 in the ER --> extubated 02/10/2025 Respiratory BioFire negative for everything on 02/09/2025 -- History of asthma Moderate to severe persistent Absolute eosinophil count 2190 on 02/09/2025 Labs 05/18/2024: IgE 456, RAST panel negative for everything including Aspergillus IgE Tryptase 1.3 --Aspiration Videofluoroscopy did show aspiration especially to liquids -- Pneumonia More dominant on the left side Procalcitonin 2.35 -- History of ulcerative colitis On extended release mesalamine at home Plan: In/out: -100, urine output 600 mL, +1.4 L since coming to the hospital On discharge recommend the following 1) prednisone 40 mg for 3 days followed by 20 mg for 3 days and then stop 2) confirm what inhaler she was taking at home, if she was taking Breo 100 then increase it to Breo 200 and add Spiriva 2.5 mcg or Incruse to the regimen 3) montelukast 10 mg on a daily basis 4) Augmentin for 4 more days From the outpatient side I am going to work on getting the patient biologic. She is also going to benefit from speech therapy which I will send a referral for All questions and queries of the patient as well as patient's mother were answered in depth Case was discussed with primary team Please note the above document was generated using voice recognition software. It may contain grammatical, syntax or spelling errors.Any formal questions or concerns about the content, text or information contained within the body of this dictation should be directly addressed to the provider for clarification. Admission and Anticipated Discharge Date Admission Date: February 09, 2025 Subjective Patient seen and examined at bedside. No acute distress, no adverse events overnight Coughing has significantly decreased compared to the last 2 days Saturating well on room air Stated that she her breathing is much better Patient's boyfriend as well as mother were in the room. Denies any chest pain Fair appetite, no nausea or vomiting Review of Systems 2 Review of Systems: All systems reviewed & are unremarkable except as noted in Subjective Physical Exam 2 Physical Exam: Constitutional: No acute distress HEENT: EOMI, PERRLA, no stridor Respiratory system: Good air entry bilaterally, no wheeze, no rhonchi, no crackles CVS: S1-S2 positive, no murmurs or gallops Abdomen: Soft, nontender, nondistended, positive bowel sounds x4 Extremities: +2 pulses bilaterally radialis/ dorsalis pedis, no cyanosis, no edema Neuro: Awake alert oriented to self and place Psych: Normal mood and affect G/U: No Joseph Skin: no rashes, warm and dry Lymphatic: no cervical or axillary lymphadenopathy Results & Data Results & Data Vital Signs (Past 12 Hours) Vital Signs Temp Pulse Resp BP Pulse Ox O2 Del Method 02/12/25 06:51 70 16 96 Room Air 02/11/25 23:04 36.3 C L 79 18 116/71 97 Room Air 02/11/25 22:31 87 18 99 Room Air 02/11/25 19:43 92 H 18 92 Room Air Laboratory Results 02/12/25 06:27 02/12/25 06:27 PG Care Time/CCT Total # of Minutes Spent Total Time Spent with Patient: Total time spent is greater than 50% in coordination of care (as documented) at patient's floor/unit and/or counseling patient: Coding Level of Care Code 95467 SUB INP/OBS CARE 2/35MIN Diagnoses Status asthmaticus J45.902 Respiratory acidosis E87.29 Multifocal pneumonia J18.8 Aspiration into airway T17.908A
[2025-02-12] MEDS: AMOXICILLIN/CLAVULANATE 875 MG TAB PO SCH (08:21)
[2025-02-12 08:26] VITALS: BP 120/78; PULSE 71; TEMP 98.2; O2SAT 95
[2025-02-14 09:24] LABS: 7-Aminoclonaz, Confirm NEGATIVE ng/mL (<25); Amphetamine Urine, Confirm 8213 ng/mL (<250); Hydro-Alp Ur, GC/MS NEGATIVE ng/mL (<25); Hydroxyethylflurazepam, Conf NEGATIVE ng/mL (<50); Hydroxymidazolam Ur, GC/MS >2000 ng/mL (<50); Lorazepam, Ur GC/MS NEGATIVE ng/mL (<50); Marijuana Quant, GCMS Urine 59 ng/mL (<5); Methamphetamine, Ur Confirm NEGATIVE ng/mL (<250); Nordiazepam, Confirm NEGATIVE ng/mL (<50); Norfentanyl, Urine 13.1 ng/mL (<0.5); Oxazepam Ur, GC/MS NEGATIVE ng/mL (<50); Temazepam, Confirm NEGATIVE ng/mL (<50); medMATCH Fentanyl, Urine DNR; medMATCH Norfentanyl, Urine DNR
== END 2025-02-12 12:46 | disposition home or self-care (01) | DRG 208 ==
LOC: ED 04:09 → 1E 04:47 → SUATTDRO 04:47 → 1E 05:09 → 3W 02-11 17:14

== ENCOUNTER 2025-04-20 11:21 | Observation (INO) ==
--- NOTE | 2025-04-20 11:56 | Emergency Department Note ---
Impression & Plan Acute asthma exacerbation, Rhinovirus infection ED Provider Note NAME: VASILIY RAJAN AGE: 20 SEX: F : 2005 ARRIVES VIA: Walk-In INFORMANT: Patient, ED PROVIDER(S): Keenan Snow DO CHIEF COMPLAINT: Shortness of breath HPI: The patient is a 20-year-old female who presented to the emergency department for an evaluation of difficulty breathing. The patient has a history of reactive airway disease and asthma. The patient presented to the emergency department today because of the symptoms. The patient has a history of similar episodes in the past. She has been using her nebulizer. The last time she used a breathing treatment was this morning. The patient denies having any hemoptysis. She has had a productive cough with yellow sputum. She has had no fever. She has no sick contacts as far she knows. ROS: See above HPI for pertinent positives & negatives. A total of 10 systems reviewed and were otherwise negative. PAST MEDICAL HISTORY: See Below PAST SURGICAL HISTORY: See Below FAMILY HISTORY: See Below SOCIAL HISTORY: See Below HOME MEDICATIONS: See Below ALLERGIES: See Below VITALS: See Below PHYSICAL EXAMINATION: GENERAL: Patient is awake alert in no acute distress patient is resting comfortably and showing no signs of anxiety EYES: The conjunctivae are clear. The pupils are round and reactive. EARS, NOSE, MOUTH AND THROAT: The nose is without any evidence of any deformity. Mucous membranes are moist. Voice was hoarse. NECK: The neck is nontender and supple. There is no stridor. RESPIRATORY: Diminished breath sounds are noted throughout with expiratory wheezing in all merrill. There was no conversational dyspnea. CARDIOVASCULAR: Regular rate and rhythm noted there no murmurs rubs or gallops normal S1 normal S2. GASTROINTESTINAL: The abdomen is soft. Abdomen is nontender. MUSCULOSKELETAL/EXTREMITIES: There is no evidence of gross deformity full range of motion is noted in the hips and shoulders. SKIN: There is no obvious evidence of any rash. There are no petechiae, pallor or cyanosis noted. NEUROLOGIC: Patient is awake alert and oriented x3. MEDICAL DECISION MAKING: The patient is a 20-year-old female who has a history of asthma who presented to the emergency department for an evaluation of difficulty breathing. The patient was initially treated with bronchodilator therapy as well as IV fluids and IV steroids. She was reevaluated multiple times. At rest she was doing quite well and oxygen saturation was good on room air however with any exertion she would become tachycardic and have significant coughing. She also dropped her oxygen saturation. I discussed the patient's laboratory and radiographic studies with her. I discussed her condition with the on-call [facility]ist. They have agreed to evaluate the patient in the emergency department for further management and disposition. Triage Nursing notes reviewed. Prior medical records reviewed Vital Signs: reviewed and remarkable for tachycardia and hypoxia. Differential diagnosis: Reactive airway disease, pneumonia, pneumothorax, COPD, CHF, infections, cardiac ischemia, pulmonary embolism, musculoskeletal, gastrointestinal, as well as other pathologies. ER treatment provided: See below Diagnostics interpreted by me: ECG: EKG was obtained in the emergency department. My interpretation is sinus tachycardia at 101 bpm. There is no ectopy. There is no acute ST segment abnormalities noted. QTc was 456 ms. Cardiac Monitoring: An order was placed for continuous cardiac monitoring. The monitor shows a rate of 102 bpm with sinus tachycardia. Laboratory studies: As stated above and show below. Imaging studies: See below. Radiographic imaging was reviewed by myself Consultation(s): I discussed this case with Kelly who is on-call for the [facility]ist group. ED COURSE: Procedures: none Critical Care: I have personally spent greater than 40 minutes of critical care time in the direct management of this patient. This includes bedside care, interpretation of diagnostic studies, and testing, discussion with consultants, patient, and family members, and other required patient management activities. This 40 minutes is in excess of all separately billable procedures. Past Med/Surg History Problem List (Updated 04/20/25 @ 15:56 by Keenan Snow DO) Rhinovirus infection (Acute) Acute asthma exacerbation (Acute) Ulcerative colitis Inflammatory bowel disease Rash Aspiration into airway Aspiration pneumonia Multifocal pneumonia Tobacco abuse (Acute) Hyperglycemia (Acute) Increased anion gap metabolic acidosis Respiratory acidosis Status asthmaticus (Acute) Respiratory arrest (Acute) Asthma exacerbation (Acute) Syncopal episodes Medical History Borderline personality disorder Asthma Eosinophilia Cocaine abuse Current every day vaping Depression ADHD Surgical History History of tonsillectomy History of colonoscopy Family History Grandmother (Paternal) Cancer Breast cancer Grandmother (Maternal) Diabetes Denies family history of Ovarian cancer Prostate cancer Myocardial infarction Lung cancer Colorectal cancer Social History Smoking Status: Never smoker Tobacco Type: E-cigarettes / Vaping Age Started Using Tobacco: 17; packs per day: 0.005; Second Hand Exposure: Yes; Do You Dip or Chew Tobacco: No; Hx Substance Use: Yes Non-Prescribed Medications: Crack / Cocaine and Marijuana Last Used Substance: Unknown Preferred Language: Ugandan Communication Ability: Impaired Visual Impairment: Limited Hearing Ability: Normal 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 Beliefs That Will Affect Care: None marital status: Single Current Living Situation: Significant Other Current Living Situation Comment: apartment with roommates current occupational status: employed current occupation: [employer] How many Children do You have: 0 Feels Safe at Home: Yes Childhood Exposure to Second-Hand Smoke: Yes caffeine: Yes Dental Care, Regularly: No Physical Activity Frequency: 1-2 Times per Week Seatbelt Use: always Sunscreen Use: Yes Assistive Devices: None Allergies Allergies Allergy/AdvReac Type Severity Reaction Status Date / Time nickel Allergy Intermediate Rash Unverified 04/06/25 09:50 perfume Allergy Unknown Sneezing Unverified 04/06/25 09:50 No Known Drug Allergies Allergy Verified 04/06/25 09:50 Home Meds Home Medications Medication Instructions Recorded Confirmed escitalopram oxalate 10 mg tablet 10 mg PO QPM 08/13/23 04/20/25 (Lexapro) lisdexamfetamine 70 mg capsule 70 mg PO QAM 04/25/24 04/20/25 (Vyvanse) aripiprazole 15 mg tablet (Abilify) 15 mg PO QPM 04/06/25 04/20/25 mesalamine 1.2 gram tablet,delayed 2.4 g PO QPM 04/20/25 04/20/25 release montelukast 10 mg tablet 10 mg PO QPM 04/20/25 04/20/25 (Singulair) Previous Rx's Medication Instructions Recorded albuterol sulfate 90 mcg/actuation 2 inh inhalation Q6H PRN shortness 04/04/25 aerosol inhaler of breath or wheezing #8.5 grams fluticasone fur. 200 mcg-umeclid 1 inh inhalation DAILY #60 ea 04/06/25 62.5 mcg-vilant 25 mcg inhalat.powder (Trelegy Ellipta) albuterol sulfate 1.25 mg/3 mL 2.5 mg (6 mL) inhalation Q4H PRN 04/20/25 solution for nebulization shortness of breath or wheezing #90 mL Results & Data (ED) Vital Signs Vital Signs - 24 hr 04/20/25 11:23 04/20/25 11:40 04/20/25 11:42 Temperature 36.5 C Temperature Source Temporal Artery Scan Pulse Rate 125 H Pulse Rate from SpO2 Sensor Respiratory Rate 30 H Respiratory Rate [Exercises] Respiratory Effort / Characteristics Non-Labored Non-Labored Respiratory Depth Normal Normal Respiratory Pattern Regular Regular Blood Pressure 115/69 Blood Pressure Mean 84 Pulse Oximetry 88 L Pulse Oximetry [Exercises] Pulse Oximetry [Resting] Oxygen Delivery Method Room Air Room Air Room Air Sepsis Recent Fever Within 48 Hours No Sepsis New/Unexplained Change in Mental Status No Sepsis Action Taken by Nursing No Action Required 04/20/25 11:50 04/20/25 11:59 04/20/25 13:00 Temperature Temperature Source Pulse Rate 90 Pulse Rate from SpO2 Sensor Respiratory Rate Respiratory Rate [Exercises] Respiratory Effort / Characteristics Respiratory Depth Respiratory Pattern Blood Pressure 94/69 L Blood Pressure Mean 75 Pulse Oximetry Pulse Oximetry [Exercises] Pulse Oximetry [Resting] Oxygen Delivery Method Room Air Sepsis Recent Fever Within 48 Hours Sepsis New/Unexplained Change in Mental Status Sepsis Action Taken by Nursing 04/20/25 13:00 04/20/25 14:00 04/20/25 15:21 Temperature Temperature Source Pulse Rate 96 H 102 H Pulse Rate from SpO2 Sensor 95 H 104 H Respiratory Rate 23 21 Respiratory Rate [Exercises] 30 H Respiratory Effort / Characteristics Respiratory Depth Respiratory Pattern Blood Pressure 94/69 L 92/60 L Blood Pressure Mean 77 63 Pulse Oximetry 94 90 Pulse Oximetry [Exercises] 89 L Pulse Oximetry [Resting] 93 Oxygen Delivery Method Room Air Room Air Sepsis Recent Fever Within 48 Hours Sepsis New/Unexplained Change in Mental Status Sepsis Action Taken by Care Home Medications Current Medication List: was personally reviewed by me Laboratory Data Attestation: I reviewed the patient's lab results. 04/20/25 11:45 04/20/25 11:45 Lab Results 04/20/25 04/20/25 04/20/25 Range/Units 11:45 12:01 12:10 WBC 13.41 H (4.8-10.8) K/ul RBC 4.63 (4.20-5.40) M/uL Hgb 13.4 (12.0-16.0) g/dl Hct 40.4 (37.0-47.0) % MCV 87.3 (80.0-100.0) fL MCH 28.9 (25.0-34.0) pg MCHC 33.2 (32.0-36.0) g/dL RDW Std Deviation 40.2 (36.4-46.3) fL RDW Coeff of Carlos 12.8 (11.5-14.5) % Plt Count 414 H (130-400) K/uL MPV 10.0 (9.4-12.4) fL Immature Gran % (Auto) 0.7 % Neut % (Auto) 57.4 % Lymph % (Auto) 19.4 % Perkins % (Auto) 8.1 % Eos % (Auto) 13.7 % Baso % (Auto) 0.7 % Neut # (Auto) 7.70 H (1.40-6.50) K/uL Lymph # (Auto) 2.60 (1.20-3.40) K/uL Perkins # (Auto) 1.08 H (0.11-0.59) K/uL Eos # (Auto) 1.84 H (0.00-0.50) K/uL Baso # (Auto) 0.10 (0.00-0.20) K/uL Immature Gran # (Auto) 0.09 (0.01-0.20) K/uL VBG pH 7.43 H (7.36-7.41) VBG pCO2 37 L (38-50) mmHg VBG pO2 67 mmHg VBG HCO3 25 mmol/L VBG O2 Saturation 94.4 % VBG Base Excess 0.5 mEq/L Sodium 138 (136-145) mmol/L Potassium 3.9 (3.5-5.1) mmol/L Chloride 105 (98-107) mmol/L Carbon Dioxide 26 (21-32) mmol/L Anion Gap 7 (3-11) BUN 12 (6-23) mg/dl Creatinine 0.65 (0.6-1.2) mg/dl Est Cr Clr Drug Dosing 150.1 ml/min eGFR 127.59 BUN/Creatinine Ratio 18.5 (10-20) Glucose 111 H (70-99(Fasting)) mg/dl Calcium 9.7 (8.6-10.3) mg/dl Magnesium 1.9 (1.7-2.4) mg/dl Total Bilirubin 0.5 (0.2-1.0) mg/dl AST 15 (13-39) U/L ALT 12 (7-52) U/L Alkaline Phosphatase 72 (34-104) U/L Troponin I High Sens < 2.3 (0-14) pg/ml Total Protein 7.6 (6.0-8.3) gm/dl Albumin 4.0 (3.4-5.0) gm/dl Globulin 3.6 (2.5-4.0) gm/dl Albumin/Globulin Ratio 1.1 (0.9-2) Adenovirus (PCR) Not Detected (NotDetected) B. pertussis DNA (PCR) Not Detected (NotDetected) B.parapertussis DNA PCR Not Detected (NotDetected) C. pneumoniae DNA (PCR) Not Detected (NotDetected) Coronavirus OC43 (PCR) Not Detected (NotDetected) Coronavirus HKU1 (PCR) Not Detected (NotDetected) Coronavirus 229E (PCR) Not Detected (NotDetected) SARS-CoV-2 (PCR) Not Detected (NotDetected) Coronavirus NL63 (PCR) Not Detected (NotDetected) Human Metapneumovir PCR Not Detected (NotDetected) Influenza Type A (PCR) Not Detected (NotDetected) Influenza Type B (PCR) Not Detected (NotDetected) M. pneumoniae (PCR) Not Detected (NotDetected) Parainfluenza 1 (PCR) Not Detected (NotDetected) Parainfluenza 2 (PCR) Not Detected (NotDetected) Parainfluenza 3 (PCR) Not Detected (NotDetected) Parainfluenza 4 (PCR) Not Detected (NotDetected) RSV (PCR) Not Detected (NotDetected) Entero/Rhino (PCR) DETECTED A (NotDetected) Administered Medications Discontinued Medications Albuterol (Albut/Ipratrop 3mg/0.5mg Neb 3 Ml Vial) 3 ml NEB NOW STA; Protocol Stop: 04/20/25 11:51 Last Admin: 04/20/25 11:58 Dose: 3 ml Documented By: PINKY Albuterol (Albut/Ipratrop 3mg/0.5mg Neb 3 Ml Vial) 3 ml NEB NOW STA; Protocol Stop: 04/20/25 13:42 Last Admin: 04/20/25 14:15 Dose: 3 ml Documented By: Albuterol (Albut/Ipratrop 3mg/0.5mg Neb 3 Ml Vial) 3 ml NEB NOW STA; Protocol Stop: 04/20/25 15:56 Last Admin: 04/20/25 16:27 Dose: 3 ml Documented By: QGV Dexamethasone Sodium Phosphate (DexamethasonePf 10 Mg/Ml Vial) 10 mg IV NOW ONE Stop: 04/20/25 11:51 Last Admin: 04/20/25 11:58 Dose: 10 mg Documented By: PINKY Sodium Chloride (Nss) 1,000 mls @ 999 mls/hr IV .Q1H1M ONE Stop: 04/20/25 14:53 Last Infusion: 04/20/25 15:42 Dose: Infused Documented By: Admin: 04/20/25 14:15 Dose: 999 mls/hr Documented By: Imaging Data Attestation: I personally reviewed and interpreted this imaging study as follows: My Impression: 1 view chest x-ray was obtained in the emergency department. My interpretation is no free air or definite infiltrate, final report below. Radiologist's Impression: Chest X-Ray 04/20/25 11:50 XR chest 1V portable CLINICAL HISTORY: Dyspnea COMPARISON STUDY: 03/27/2025 FINDINGS: Heart size and pulmonary vasculature are normal. No consolidation or pleural effusion. No pneumothorax. IMPRESSION: No acute findings. ACT 112: Negative or not required by law. Electronically signed by: Xavi Randall M.D. 04/20/2025 12:06 PM Discharge Plan Visit Data Chief Complaint: Shortness of Breath/Dyspnea Stated Complaint: TROUBLE BREATHING ED Provider: Keenan Snow Discharge Problem: Acute asthma exacerbation, Rhinovirus infection Patient Disposition: Being Evaluated by Hospitalist Condition: Fair Forms Stand Alone Forms: My [facility] Prescriptions Prescriptions: No Action albuterol sulfate 90 mcg/actuation HFA aerosol inhaler 2 inh inhalation Q6H PRN (Reason: shortness of breath or wheezing) Qty: 8.5 3RF albuterol sulfate 1.25 mg/3 mL solution for nebulization 2.5 mg inhalation Q4H PRN (Reason: shortness of breath or wheezing) Qty: 90 0RF escitalopram oxalate [Lexapro] 10 mg tablet 10 mg PO QPM aripiprazole [Abilify] 15 mg tablet 15 mg PO QPM Trelegy Ellipta 200-62.5-25 mcg blister with device 1 inh inhalation DAILY Qty: 60 2RF lisdexamfetamine [Vyvanse] 70 mg Capsule 70 mg PO QAM montelukast [Singulair] 10 mg tablet 10 mg PO QPM mesalamine 1.2 gram tablet,delayed release (DR/EC) 2.4 g PO QPM Referrals Referrals: Walter Parra CRNP [Primary Care Provider] -
[2025-04-20] MEDS: dexAMETHasone**PF** 10 MG/ML VIAL IV ONE (11:58)
[2025-04-20] MEDS: ALBUT/IPRATROP 3MG/0.5MG NEB 3 ML VIAL NEB STA ×3 (11:58→16:27)
--- NOTE | 2025-04-20 12:07 | XRay Report ---
XR chest 1V portable CLINICAL HISTORY: Dyspnea COMPARISON STUDY: 03/27/2025 FINDINGS: Heart size and pulmonary vasculature are normal. No consolidation or pleural effusion. No p neumothorax. IMPRESSION: No acute findings. ACT 112: Negative or not required by law. Electronically signed by: Xavi Randall M.D. 04/20/2025 12:06 PM
[2025-04-20 12:11] LABS: Base Excess VBG 0.5 mEq/L; HCO3 VBG 25 mmol/L; Oxygen Saturation VBG 94.4 %; PCO2 VBG 37 mmHg (38-50); PO2 VBG 67 mmHg; pH VBG 7.43 (7.36-7.41)
[2025-04-20 12:16] LABS: Hematocrit (blood only) 40.4 % (37.0-47.0); Hemoglobin 13.4 g/dl (12.0-16.0); Immature Granulocytes # (auto) 0.09 K/uL (0.01-0.20); Immature Granulocytes % (auto) 0.7 %; Mean Corpuscular Hemoglobin 28.9 pg (25.0-34.0); Mean Corpuscular Volume 87.3 fL (80.0-100.0); Platelet Count 414 K/uL (130-400); RDW Standard Deviation 40.2 fL (36.4-46.3); Red Blood Count 4.63 M/uL (4.20-5.40); White Blood Count 13.41 K/ul (4.8-10.8)
[2025-04-20 12:22] LABS: Alanine Aminotransferase 12 U/L (7-52); Albumin Globulin Ratio 1.1 (0.9-2); Albumin Level 4.0 gm/dl (3.4-5.0); Alkaline Phosphatase 72 U/L (34-104); Anion Gap 7 (3-11); Bilirubin,Total 0.5 mg/dl (0.2-1.0); Blood Urea Nitrogen 12 mg/dl (6-23); Calcium 9.7 mg/dl (8.6-10.3); Carbon Dioxide 26 mmol/L (21-32); Chloride 105 mmol/L (98-107); Creatinine Clr Calc Pharmacy 150.1 ml/min; Globulin 3.6 gm/dl (2.5-4.0); Glucose 111 mg/dl (70-99(Fasting)); Magnesium 1.9 mg/dl (1.7-2.4); Potassium 3.9 mmol/L (3.5-5.1); Sodium 138 mmol/L (136-145); Total Protein 7.6 gm/dl (6.0-8.3)
[2025-04-20 13:16] LABS: Chlamydia pneumoniae PCR Not Detected (NotDetected); Coronavirus 229E PCR Not Detected (NotDetected); Coronavirus CoV-2 (COVID19)PCR Not Detected (NotDetected); Coronavirus HKU1 PCR Not Detected (NotDetected); Coronavirus NL63 PCR Not Detected (NotDetected); Coronavirus OC43PCR Not Detected (NotDetected); Human Metapneumovirus PCR Not Detected (NotDetected); Parainfluenza Virus 1 PCR Not Detected (NotDetected); Parainfluenza Virus 2 PCR Not Detected (NotDetected); Parainfluenza Virus 3 PCR Not Detected (NotDetected); Parainfluenza Virus 4 PCR Not Detected (NotDetected); Respiratory Syncytial VirusPCR Not Detected (NotDetected); Rhinovirus/Enterovirus PCR DETECTED (NotDetected)
[2025-04-20] MEDS: SODIUM CHLORIDE 0.9% 1,000 ML IV ONE (14:15)
[2025-04-20] MEDS ORDERED: ONDANSETRON INJ 2 MG/ML 2 ML VIAL IV PRN (16:34)
[2025-04-20] MEDS ORDERED: POLYETHYLENE (MIRALAX) 17 GM PACK PO PRN (16:34)
[2025-04-20] MEDS ORDERED: ACETAMINOPHEN 325 MG TAB PO PRN (16:34)
--- NOTE | 2025-04-20 16:48 | History & Physical Report ---
"Date of Service April 20, 2025 Assessment & Plan (1) Acute asthma exacerbation: (2) Rhinovirus infection: (3) Ulcerative colitis: Plan This is a 20-year-old female with past medical history of asthma, IBD, status asthmaticus who presented to the emergency department on 04/20/2025 for a cough. While in the emergency department she did test positive for rhinovirus. Her CBC did reveal mild leukocytosis of 13.41. Hemoglobin stable. Electrolytes and renal function stable. LFTs WNL. VBG did reveal pH 7.43, pCO2 37, HCO3 25. Chest x-ray did reveal no acute findings. She was given 10 mg of IV dexamethasone along with 3 DuoNebs in the ED. This did improve her symptoms however upon ambulation she was dropping below 90s. #Acute Asthma Exacerbation | Rhinovirus w/ 2 day cough hx respiratory Biofire + for rhinovirus CXR negative for pneumonia CBC w/ mild leukocytosis of 13.41. BMP stable. LFTs WNL VBG: pH 7.43; pCO2 37; HCO3 25 s/p 10mg IV Dexamethasone --> transition to 60mg IV Solu-Medrol q12h Continue Duonebs q6h scheduled Continue home Trelegy and Singulair O2 prn to keep O2 sat > 90% Zofran prn for N/V; tylenol prn for fever AM CBC, BMP #Mental health - lexapro, Ariprprazole, Vyvanse #UC - Mesalamine DVT prophylaxis: encourage ambulation when able. SCD's Code: full Admission was discussed with Dr. Leslie at time of encounter. History of Present Illness Primary Care Provider: GEO Glover This is a 20-year-old female with past medical history of asthma, IBD, status asthmaticus who presented to the emergency department on 04/20/2025 for a cough. Summer was seen and examined this evening. She reports that she has been having a cough for approximately the last 2 days. This has caused her to have shortness of breath as well. She takes Trelegy at home and has been using her nebulizers as needed as well. She denies any chest pain. She reports that she does feel nauseous and has had occasional episodes of vomiting after a coughing spell. She reports no changes to her bowel habits. Denies any lower extremity edema. Denies any fevers or chills. She was recently hospitalized from 02/09/2025 to 02/12/2025 and at that time she did have to be intubated and was in the ICU. Since then she had been doing well. She reports minimal alcohol and nicotine use. Reports she does have her medical marijuana card but has not been using it lately as it aggravates her lung disease. While in the emergency department she did test positive for rhinovirus. Her CBC did reveal mild leukocytosis of 13.41. Hemoglobin stable. Electrolytes and renal function stable. LFTs WNL. VBG did reveal pH 7.43, pCO2 37, HCO3 25. Chest x-ray did reveal no acute findings. She was given 10 mg of IV dexamethasone along with 3 DuoNebs in the ED. This did improve her symptoms however upon ambulation she was dropping below 90s. Code discussion did take place and she does confirm that she is a full code. Allergies Allergy/AdvReac Type Severity Reaction Status Date / Time nickel Allergy Intermediate Rash Unverified 04/06/25 09:50 perfume Allergy Unknown Sneezing Unverified 04/06/25 09:50 No Known Drug Allergies Allergy Verified 04/06/25 09:50 Home Medications Medication Instructions Recorded Confirmed Type escitalopram oxalate 10 mg tablet 10 mg PO QPM 08/13/23 04/20/25 History (Lexapro) lisdexamfetamine 70 mg capsule 70 mg PO QAM 04/25/24 04/20/25 History (Vyvanse) albuterol sulfate 90 mcg/actuation 2 inh inhalation Q6H PRN shortness 04/04/25 04/20/25 Rx aerosol inhaler of breath or wheezing #8.5 grams aripiprazole 15 mg tablet (Abilify) 15 mg PO QPM 04/06/25 04/20/25 History fluticasone fur. 200 mcg-umeclid 1 inh inhalation DAILY #60 ea 04/06/25 04/20/25 Rx 62.5 mcg-vilant 25 mcg inhalat.powder (Trelegy Ellipta) albuterol sulfate 1.25 mg/3 mL 2.5 mg (6 mL) inhalation Q4H PRN 04/20/25 04/20/25 Rx solution for nebulization shortness of breath or wheezing #90 mL mesalamine 1.2 gram tablet,delayed 2.4 g PO QPM 04/20/25 04/20/25 History release montelukast 10 mg tablet 10 mg PO QPM 04/20/25 04/20/25 History (Singulair) Past Med/Surg History Problem List (Updated 04/20/25 @ 15:56 by Keenan Snow DO) Rhinovirus infection (Acute) Acute asthma exacerbation (Acute) Ulcerative colitis Inflammatory bowel disease Rash Aspiration into airway Aspiration pneumonia Multifocal pneumonia Tobacco abuse (Acute) Hyperglycemia (Acute) Increased anion gap metabolic acidosis Respiratory acidosis Status asthmaticus (Acute) Respiratory arrest (Acute) Asthma exacerbation (Acute) Syncopal episodes Medical History Borderline personality disorder Asthma Eosinophilia Cocaine abuse Current every day vaping Depression ADHD Surgical History History of tonsillectomy History of colonoscopy Family History Grandmother (Paternal) Cancer Breast cancer Grandmother (Maternal) Diabetes Denies family history of Ovarian cancer Prostate cancer Myocardial infarction Lung cancer Colorectal cancer Social History Smoking Status: Never smoker Tobacco Type: E-cigarettes / Vaping Age Started Using Tobacco: 17; packs per day: 0.005; Second Hand Exposure: Yes; Do You Dip or Chew Tobacco: No; Hx Substance Use: Yes Non-Prescribed Medications: Crack / Cocaine and Marijuana Last Used Substance: Unknown Preferred Language: Guyanese Communication Ability: Impaired Visual Impairment: Limited Hearing Ability: Normal 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 Beliefs That Will Affect Care: None marital status: Single Current Living Situation: Significant Other Current Living Situation Comment: apartment with roommates current occupational status: employed current occupation: [employer] How many Children do You have: 0 Feels Safe at Home: Yes Childhood Exposure to Second-Hand Smoke: Yes caffeine: Yes Dental Care, Regularly: No Physical Activity Frequency: 1-2 Times per Week Seatbelt Use: always Sunscreen Use: Yes Assistive Devices: None Physical Exam Physical Exam: General: NAD, VS: BP 92/60; P102; T36.5; R30 Resp: normal respiratory effort, scattered wheezing throughout all lung merrill CV: RRR, no murmur Abd: normal bowel sounds, non tender Extremities: Moves all extremities, no edema Neuro: A&O x3 Skin: intact, no lesions noted Results & Data Results & Data Vital Signs (Past 12 Hours) Vital Signs Temp Pulse Resp Resp BP Pulse Ox Pulse Ox 04/20/25 15:21 30 H 89 L 04/20/25 14:00 102 H 21 92/60 L 90 04/20/25 13:00 96 H 23 94/69 L 94 04/20/25 13:00 94/69 L 04/20/25 11:59 90 04/20/25 11:50 04/20/25 11:42 04/20/25 11:40 04/20/25 11:23 36.5 C 125 H 30 H 115/69 88 L Pulse Ox O2 Del Method 04/20/25 15:21 93 Room Air 04/20/25 14:00 Room Air 04/20/25 13:00 04/20/25 13:00 04/20/25 11:59 04/20/25 11:50 Room Air 04/20/25 11:42 Room Air 04/20/25 11:40 Room Air 04/20/25 11:23 Room Air Supervising Physician Co-Signing Physician Notes The patient was not seen by me. The chart was reviewed. Case discussed with MOISÉS Mcgovern. Agree with assessment and plan PG Care Time/CCT Total # of Minutes Spent Total Time Spent with Patient: Total time spent is greater than 50% in coordination of care (as documented) at patient's floor/unit and/or counseling patient: Coding Level of Care Code 37892 INT INP/OBS CARE 3/75MIN Diagnoses Acute asthma exacerbation J45.901 Rhinovirus infection B34.8 Ulcerative colitis K51.90"
[2025-04-20] MEDS: ALBUT/IPRATROP 3MG/0.5MG NEB 3 ML VIAL NEB SCH (19:51)
[2025-04-20 19:53] LABS: Appearance Urine Clear (Clear); Glucose Urine UA Negative (Negative)
[2025-04-20] MEDS: ARIPiprazole 15 MG TAB PO SCH (20:19)
[2025-04-20] MEDS: ESCITALOPRAM OXALATE 10 MG TAB PO SCH (20:20)
[2025-04-20] MEDS: MONTELUKAST SODIUM 10 MG TABLET PO SCH (20:20)
[2025-04-21 06:26] LABS: Hematocrit (blood only) 40.3 % (37.0-47.0); Hemoglobin 13.2 g/dl (12.0-16.0); Mean Corpuscular Hemoglobin 28.8 pg (25.0-34.0); Mean Corpuscular Volume 88.0 fL (80.0-100.0); Platelet Count 423 K/uL (130-400); RDW Standard Deviation 40.8 fL (36.4-46.3); Red Blood Count 4.58 M/uL (4.20-5.40); White Blood Count 16.27 K/ul (4.8-10.8)
[2025-04-21 06:46] LABS: Anion Gap 9.0 (3-11); Blood Urea Nitrogen 16.0 mg/dl (6-23); Calcium 9.4 mg/dl (8.6-10.3); Carbon Dioxide 20.0 mmol/L (21-32); Chloride 106.0 mmol/L (98-107); Creatinine Clr Calc Pharmacy 183.6 ml/min; Glucose 192.0 mg/dl (70-99(Fasting)); Potassium 4.3 mmol/L (3.5-5.1); Sodium 135.0 mmol/L (136-145)
[2025-04-21] MEDS ORDERED: NON-FORMULARY MEDICATION (Fluticasone-Umeclidin-Vilanter [Trelegy Ellipta] 200-62.5-25 mcg INH SCH (09:00)
[2025-04-21] MEDS: UMECLIDINIUM/VILANTEROL 62.5/25MCG 7 PUFFS/INHALER INH SCH (09:24)
[2025-04-21] MEDS: FLUTICASONE FUROATE 200MCG 14 PUFFS/INHALER INH SCH (09:24)
--- NOTE | 2025-04-21 13:18 | Hospitalist Progress Note ---
"Date of Service April 21, 2025 Assessment & Plan (1) Acute asthma exacerbation: (2) Rhinovirus infection: (3) Ulcerative colitis: Plan This is a 20-year-old female with past medical history of asthma, IBD, status asthmaticus who presented to the emergency department on 04/20/2025 for a cough. While in the emergency department she did test positive for rhinovirus. Her CBC did reveal mild leukocytosis of 13.41. Hemoglobin stable. Electrolytes and renal function stable. LFTs WNL. VBG did reveal pH 7.43, pCO2 37, HCO3 25. Chest x-ray did reveal no acute findings. She was given 10 mg of IV dexamethasone along with 3 DuoNebs in the ED. This did improve her symptoms however upon ambulation she was dropping below 90s. #Acute Asthma Exacerbation | Rhinovirus w/ 2 day cough hx respiratory Biofire + for rhinovirus CXR negative for pneumonia CBC w/ leukocytosis of 16.27 likely secondary to high dose steroids. BMP stable. LFTs WNL VBG: pH 7.43; pCO2 37; HCO3 25 60mg IV Solu-Medrol q12h Continue Duonebs q6h scheduled, encourage compliance Continue home Trelegy and Singulair O2 prn to keep O2 sat > 90% Zofran prn for N/V; Tylenol prn for fever AM CBC, BMP #Mental health - Lexapro, Aripiprazole, Vyvanse #UC - Mesalamine DVT prophylaxis: encourage ambulation when able. SCD's Code: full Anticipate discharge when patient able to have stable O2 sat on room air. Admission and Anticipated Discharge Date Admission Date: April 20, 2025 Supervising Physician Co-Signing Physician Notes The patient was not seen by me. The chart was reviewed. Case discussed with MOISÉS Mcgovern. Agree with assessment and plan Subjective Summer was seen & examined this morning. She report she is coughing more today and it is more productive. She did require 3L of oxygen overnight & throughout the day today Physical Exam Physical Exam: General: NAD, VS: BP 129/78; P104; T36.7C; R18 Resp: normal respiratory effort, b/l wheezing in upper lung merrill. CV: RRR, no murmur Extremities: Moves all extremities, no edema Neuro: A&O x3, Skin: intact, no lesions noted Results & Data Results & Data Vital Signs (Past 12 Hours) Vital Signs Temp Pulse Pulse Resp BP Pulse Ox O2 Del Method 04/21/25 11:25 36.9 C 103 H 18 118/65 92 Nasal Cannula 04/21/25 08:00 59 L 04/21/25 08:00 Nasal Cannula 04/21/25 07:30 36.5 C 93 H 18 126/74 93 Nasal Cannula 04/21/25 03:31 36.7 C 98 H 18 136/66 96 Nasal Cannula O2 Flow Rate 04/21/25 11:25 3 04/21/25 08:00 04/21/25 08:00 3 04/21/25 07:30 3 04/21/25 03:31 3.5 PG Care Time/CCT Total # of Minutes Spent Total Time Spent with Patient: Total time spent is greater than 50% in coordination of care (as documented) at patient's floor/unit and/or counseling patient: Coding Level of Care Code 44639 SUB INP/OBS CARE 2/35MIN Diagnoses Acute asthma exacerbation J45.901 Rhinovirus infection B34.8 Ulcerative colitis K51.90"
[2025-04-21] MEDS: guaiFENesin 600 MG TABCR PO SCH (19:57)
[2025-04-21] MEDS: MELATONIN 3 MG TAB PO PRN (21:58)
[2025-04-22 06:42] LABS: Hematocrit (blood only) 38.3 % (37.0-47.0); Hemoglobin 12.3 g/dl (12.0-16.0); Mean Corpuscular Hemoglobin 28.7 pg (25.0-34.0); Mean Corpuscular Volume 89.3 fL (80.0-100.0); Platelet Count 461 K/uL (130-400); RDW Standard Deviation 41.4 fL (36.4-46.3); Red Blood Count 4.29 M/uL (4.20-5.40); White Blood Count 26.55 K/ul (4.8-10.8)
[2025-04-22 06:57] LABS: Anion Gap 7.0 (3-11); Blood Urea Nitrogen 17.0 mg/dl (6-23); Calcium 9.3 mg/dl (8.6-10.3); Carbon Dioxide 23.0 mmol/L (21-32); Chloride 106.0 mmol/L (98-107); Creatinine Clr Calc Pharmacy 202.4 ml/min; Glucose 141.0 mg/dl (70-99(Fasting)); Magnesium 2.2 mg/dl (1.7-2.4); Potassium 4.4 mmol/L (3.5-5.1); Sodium 136.0 mmol/L (136-145)
--- NOTE | 2025-04-22 09:36 | Discharge Summary ---
"Discharge Summary Date of Service April 22, 2025 Principal Dx & Hospital Course #1 = Principal Diagnosis (1) Acute asthma exacerbation: (2) Rhinovirus infection: (3) Ulcerative colitis: Plan This is a 20-year-old female with past medical history of asthma, IBD, status asthmaticus who presented to the emergency department on 04/20/2025 for a cough. While in the emergency department she did test positive for rhinovirus. Her CBC did reveal mild leukocytosis of 13.41. Hemoglobin stable. Electrolytes and renal function stable. LFTs WNL. VBG did reveal pH 7.43, pCO2 37, HCO3 25. Chest x-ray did reveal no acute findings. She was given 10 mg of IV dexamethasone along with 3 DuoNebs in the ED. This did improve her symptoms however upon ambulation she was dropping below 90s. #Acute Asthma Exacerbation | Rhinovirus w/ 2 day cough hx respiratory Biofire + for rhinovirus CXR negative for pneumonia CBC w/ leukocytosis of 26.55 secondary to high dose steroids. BMP stable. VBG: pH 7.43; pCO2 37; HCO3 25 on admission. 60mg IV Solu-Medrol q12h while inpatient ---> transitioned to prednisone taper on dc. Continue home Trelegy and Singulair; refill of nebulizer solution sent on dc. Able to be w/o SOB on room air prior to dc. #Mental health - Lexapro, Aripiprazole, Vyvanse #UC - Mesalamine Discharged home 04/22. Admission HPI Per Admitting Provider This is a 20-year-old female with past medical history of asthma, IBD, status asthmaticus who presented to the emergency department on 04/20/2025 for a cough. Summer was seen and examined this evening. She reports that she has been having a cough for approximately the last 2 days. This has caused her to have shortness of breath as well. She takes Trelegy at home and has been using her nebulizers as needed as well. She denies any chest pain. She reports that she does feel nauseous and has had occasional episodes of vomiting after a coughing spell. She reports no changes to her bowel habits. Denies any lower extremity edema. Denies any fevers or chills. She was recently hospitalized from 02/09/2025 to 02/12/2025 and at that time she did have to be intubated and was in the ICU. Since then she had been doing well. She reports minimal alcohol and nicotine use. Reports she does have her medical marijuana card but has not been using it lately as it aggravates her lung disease. While in the emergency department she did test positive for rhinovirus. Her CBC did reveal mild leukocytosis of 13.41. Hemoglobin stable. Electrolytes and renal function stable. LFTs WNL. VBG did reveal pH 7.43, pCO2 37, HCO3 25. Chest x-ray did reveal no acute findings. She was given 10 mg of IV dex amethasone along with 3 DuoNebs in the ED. This did improve her symptoms however upon ambulation she was dropping below 90s. Code discussion did take place and she does confirm that she is a full code. Discharge Exam General: NAD, VS: BP 150/68; P92; T36.8C; R22 Resp: normal respiratory effort, lungs clear to auscultation CV: RRR, no murmur Extremities: Moves all extremities, no edema Neuro: A&O x3 Skin: intact, no lesions noted Discharge Plan Discharge Items Patient Disposition: Home - Self-Care Reason For Visit: COUGHING Discharge Diagnosis: Rhinovirus Condition on Discharge: Fair Activity: Resume your previous activity Non-emergency contact: Primary Care Provider Call non-emergency contact if: you have any medication questions, your symptoms worsen and you have a fever Follow-up/Referrals: Walter Parra CRNP [Primary Care Provider] - 05/02/25 9:30 am Diet: Regular Addtl Attending Provider Instructions: Ms. Moss, You were recently hospitalized secondary to shortness of breath and coughing. You were found to be positive for the rhinovirus. You have been treated with IV steroids and nebulizers. Medications: Your medication list has been reviewed and reconciled upon discharge to ensure accuracy and continuity of care. An updated list of all your medications is included with your hospital discharge paperwork. Please review this list closely, and make note of any changes. A prednisone taper has been sent for you on discharge. This will start 04/23. Please take this as prescribed. Take your medications as instructed; do not skip a dose of your medicines. Make sure all of your doctors know every medicine you are taking (including skfv-qcv-falikci medicines, vitamins, and supplements). Call your primary care provider before taking any new medicines (including over- the-counter medicines, vitamins, and supplements), because some of these may interact with your current medications, or may make your symptoms worse. Tell your primary care provider if you cannot afford your medications. Activity: You can do normal everyday activities as your body allows. Take rest breaks if you feel tired. Do not overexert. Stop activity if you have pain, shortness of breath or feel dizzy. Follow-up appointments: Make an appointment with your primary care physician within one week of discharge. A copy of this summary will be sent to them. Every time you see your primary care physician, or any other doctor, bring your medication list, and a list of questions. CONTACT YOUR PRIMARY CARE PROVIDER if you experience any of the following: Shortness of breath or difficulty breathing Fevers or chills Feeling tired with normal activity or experiencing dizziness or fainting Difficulty following your treatment plan, or difficulty taking medications CALL 911 OR GO TO THE EMERGENCY DEPARTMENT if you experience any of the following: Severe abdominal pain or nausea/vomiting Severe chest pain, or chest pain that radiates (moves) to your jaw or arm Sudden, severe shortness of breath or difficulty breathing Thank you for allowing us to participate in your care. Pending Studies at Discharge: No Stand-Alone Forms: [facility], Smoking Cessation Medications and DC Order Prescriptions: New prednisone 10 mg tablet 10 mg PO DIRECTED Qty: 63 0RF Rx Instructions: Please take 6 tabs by mouth for 3 days; followed by 5 tabs by mouth for 3 days; followed by 4 tabs by mouth for 3 days; followed by 3 tabs by mouth for 3 days; followed by 2 tabs by mouth for 3 days; followed by 1 tab by mouth for 3 days. Continued albuterol sulfate 90 mcg/actuation HFA aerosol inhaler 2 inh inhalation Q6H PRN (Reason: shortness of breath or wheezing) Qty: 8.5 3RF escitalopram oxalate [Lexapro] 10 mg tablet 10 mg PO QPM aripiprazole [Abilify] 15 mg tablet 15 mg PO QPM Trelegy Ellipta 200-62.5-25 mcg blister with device 1 inh inhalation DAILY Qty: 60 2RF lisdexamfetamine [Vyvanse] 70 mg Capsule 70 mg PO QAM montelukast [Singulair] 10 mg tablet 10 mg PO QPM mesalamine 1.2 gram tablet,delayed release (DR/EC) 2.4 g PO QPM albuterol sulfate 1.25 mg/3 mL solution for nebulization 2.5 mg inhalation Q4H PRN (Reason: shortness of breath or wheezing) Qty: 90 0RF Discharge Orders: Discharge Order (Routine); Ordered 04/22/25 Ordered By: Connie Haynes Admission Data Admit Date/Time: 04/20/25 16:34 Attending Provider: Keenan Leslie Admit Provider: Keenan Leslie Primary Care Provider: Walter Parra Other Providers: Brayden Valerio Other Interventions: Discharge Summary Assessment (RN) Last Done: 04/22/25 12:54 Hospital Stay Data Consultations 04/20/25 16:22 ED Decision to Admit Stat Pending Results Patient Have Any Pending Studies at Discharge: No Discharge Instructions Given to Patient (Per Discharging Provider) Ms. Moss, [place] were recently hospitalized secondary to shortness of breath and coughing. You were found to be positive for the rhinovirus. You have been treated with IV steroids and nebulizers. Medications: Your medication list has been reviewed and reconciled upon discharge to ensure accuracy and continuity of care. An updated list of all your medications is included with your hospital discharge paperwork. Please review this list closely, and make note of any changes. A prednisone taper has been sent for you on discharge. This will start 04/23. Please take this as prescribed. Take your medications as instructed; do not skip a dose of your medicines. Make sure all of your doctors know every medicine you are taking (including awyn-qfs-uzbwzud medicines, vitamins, and supplements). Call your primary care provider before taking any new medicines (including over- the-counter medicines, vitamins, and supplements), because some of these may interact with your current medications, or may make your symptoms worse. Tell your primary care provider if you cannot afford your medications. Activity: You can do normal everyday activities as your body allows. Take rest breaks if you feel tired. Do not overexert. Stop activity if you have pain, shortness of breath or feel dizzy. Follow-up appointments: Make an appointment with your primary care physician within one week of discharge. A copy of this summary will be sent to them. Every time you see your primary care physician, or any other doctor, bring your medic ation list, and a list of questions. CONTACT YOUR PRIMARY CARE PROVIDER if you experience any of the following: Shortness of breath or difficulty breathing Fevers or chills Feeling tired with normal activity or experiencing dizziness or fainting Difficulty following your treatment plan, or difficulty taking medications CALL 911 OR GO TO THE EMERGENCY DEPARTMENT if you experience any of the following: Severe abdominal pain or nausea/vomiting Severe chest pain, or chest pain that radiates (moves) to your jaw or arm Sudden, severe shortness of breath or difficulty breathing Thank you for allowing us to participate in your care. Supervising Physician Co-Signing Physician Notes The patient was not seen by me. The chart was reviewed. Case discussed with MOISÉS Mcgovern. Agree with assessment and plan Total Time Total Time Spent Total Time Spent (In Minutes): 45 Total Time Includes: Examination of the Patient, Discharge Planning, Medication Reconciliation and Communication With Other Providers Coding Level of Care Code 19635 INP/OBS DISCH >30 MIN Diagnoses Acute asthma exacerbation J45.901 Rhinovirus infection B34.8 Ulcerative colitis K51.90"
[2025-04-22 10:58] VITALS: PULSE 92; RESP 22; TEMP 98.2; O2SAT 94
[2025-04-22 12:55] VITALS: BP 150/68
--- NOTE | 2025-04-25 05:50 | Electrocardiogram Report ---
Test Reason : Blood Pressure : */* mmHG Vent. Rate : 101 BPM Atrial Rate : 101 BPM P-R Int : 128 ms QRS Dur : 92 ms QT Int : 352 ms P-R-T Axes : 66 92 59 degrees QTcB Int : 456 ms Sinus tachycardia Rightward axis Borderline ECG When compared with ECG of 27-Mar-2025 22:01, Nonspecific T wave abnormality has replaced inverted T waves in Inferior leads Confirmed by Catrachito Garcia ([id number]) on 04/25/2025 5:50:45 AM Referred By: Confirmed By: Catrachito Garcia
== END 2025-04-22 13:56 | disposition home or self-care (01) ==
LOC: SUATTDRO → ED 11:21 → INTOOBSV 16:34 → 4W 16:34

== ENCOUNTER 2025-05-15 15:13 | Inpatient (IN) ==
--- NOTE | 2025-05-15 15:35 | Emergency Department Note ---
History of Present Illness General Chief complaint: Shortness of Breath/Dyspnea Stated complaint: CAN'T BREATHE Time Seen by Provider: 05/15/25 15:26 History of Present Illness This is a 20-year-old female that presents to the emergency department via private vehicle with complaints of "cannot breathe". The patient has history of asthma and this feels similar to previous exacerbations. Current exacerbation has been about 5 days in duration. She denies any preceding or current illness. She does note at home nebs and albuterol rescue inhaler have been of minimal help. She denies any fevers, chills, nausea or vomiting. She feels that compared to previous exacerbations this 1 is not as severe. The patient denies any history of PE or DVT. No recent trips or travel. No calf pain. No hemoptysis. Cough is minimally productive of a yellowish sputum. Home Medications Medication Instructions Recorded Confirmed Type escitalopram oxalate 10 mg tablet 10 mg PO QPM 08/13/23 05/15/25 History (Lexapro) lisdexamfetamine 70 mg capsule 70 mg PO QAM 04/25/24 05/15/25 History (Vyvanse) albuterol sulfate 90 mcg/actuation 2 inh inhalation Q6H PRN shortness 04/04/25 05/15/25 Rx aerosol inhaler of breath or wheezing #8.5 grams aripiprazole 15 mg tablet (Abilify) 15 mg PO QPM 04/06/25 05/15/25 History fluticasone fur. 200 mcg-umeclid 1 inh inhalation DAILY #60 ea 04/06/25 05/15/25 Rx 62.5 mcg-vilant 25 mcg inhalat.powder (Trelegy Ellipta) mesalamine 1.2 gram tablet,delayed 2.4 g PO QPM 04/20/25 05/15/25 History release montelukast 10 mg tablet 10 mg PO QPM 04/20/25 05/15/25 History (Singulair) albuterol sulfate 1.25 mg/3 mL 2.5 mg (6 mL) inhalation Q4H PRN 04/22/25 05/15/25 Rx solution for nebulization shortness of breath or wheezing #90 mL Allergies Allergy/AdvReac Type Severity Reaction Status Date / Time nickel Allergy Intermediate Rash Unverified 04/06/25 09:50 perfume Allergy Unknown Sneezing Unverified 04/06/25 09:50 No Known Drug Allergies Allergy Verified 04/06/25 09:50 Past Med/Surg History Problem List (Updated 05/15/25 @ 17:29 by Brice Del Rio PA-C) Acute respiratory failure with hypoxia (Acute) Rhinovirus infection (Acute) Acute asthma exacerbation (Acute) Inflammatory bowel disease Rash Aspiration into airway Aspiration pneumonia Multifocal pneumonia Tobacco abuse (Acute) Hyperglycemia (Acute) Increased anion gap metabolic acidosis Respiratory acidosis Status asthmaticus (Acute) Respiratory arrest (Acute) Asthma exacerbation (Acute) Syncopal episodes Medical History Ulcerative colitis Borderline personality disorder Asthma Eosinophilia Cocaine abuse Current every day vaping Depression ADHD Surgical History History of tonsillectomy History of colonoscopy Family History (Updated 05/15/25 @ 20:57 by Brayden Pascual MD) Grandmother (Paternal) Cancer Breast cancer Grandmother (Maternal) Diabetes Psoriatic arthritis Mother Psoriatic arthritis Denies family history of Ovarian cancer Prostate cancer Myocardial infarction Lung cancer Colorectal cancer Social History (Updated 05/15/25 @ 20:58 by Brayden Pascual MD) Smoking Status: Current every day smoker Tobacco Type: E-cigarettes / Vaping Age Started Using Tobacco: 17; packs per day: 0.005; Second Hand Exposure: Yes; Do You Dip or Chew Tobacco: No; Hx Alcohol Use: Yes Alcohol type: hard liquor Alcohol Intake Frequency: Monthly or Less Hx Substance Use: Yes Non-Prescribed Medications: Crack / Cocaine and Marijuana Last Used Substance: Unknown Substance Use Type Other:: medical Preferred Language: Sami Communication Ability: Effective Visual Impairment: Limited Hearing Ability: Normal Transaction Manager Required: No Beliefs That Will Affect Care: None marital status: Single Current Living Situation: Significant Other Current Living Situation Comment: apartment with roommates current occupational status: employed current occupation: [employer] How many Children do You have: 0 Other Information That Helps Us Care for You: No Feels Safe at Home: Yes Safety Concerns: Feels Safe At This Time Childhood Exposure to Second-Hand Smoke: Yes caffeine: Yes Dental Care, Regularly: No Physical Activity Frequency: 1-2 Times per Week Seatbelt Use: always Sunscreen Use: Yes Assistive Devices: Contacts Review of Systems A total of 10 systems reviewed and were otherwise negative Physical Exam Vital Signs Vital Signs - 24 hr 05/15/25 15:20 05/15/25 15:26 05/15/25 15:26 Temperature 36.6 C Temperature Source Temporal Artery Scan Pulse Rate 104 H Pulse Rate [Right Finger] Pulse Rate from SpO2 Sensor Respiratory Rate 20 Respiratory Effort / Characteristics Blood Pressure 112/68 129/76 129/76 Blood Pressure [Right Radial Artery] Blood Pressure Mean 82 111 111 Blood Pressure Mean [Right Radial Artery] Pulse Oximetry 87 L Oxygen Delivery Method Room Air Oxygen Flow Rate Sepsis Recent Fever Within 48 Hours No Sepsis New/Unexplained Change in Mental Status N/A Sepsis Action Taken by Nursing No Action Required Oxygen Flow Rate - Titration Pulse Oximetry Post Tiitration 05/15/25 15:26 05/15/25 15:26 05/15/25 15:26 Temperature Temperature Source Pulse Rate Pulse Rate [Right Finger] Pulse Rate from SpO2 Sensor Respiratory Rate Respiratory Effort / Characteristics Blood Pressure 129/76 129/76 129/76 Blood Pressure [Right Radial Artery] Blood Pressure Mean 111 111 111 Blood Pressure Mean [Right Radial Artery] Pulse Oximetry Oxygen Delivery Method Oxygen Flow Rate Sepsis Recent Fever Within 48 Hours Sepsis New/Unexplained Change in Mental Status Sepsis Action Taken by Nursing Oxygen Flow Rate - Titration Pulse Oximetry Post Tiitration 05/15/25 15:27 05/15/25 15:30 05/15/25 15:42 Temperature Temperature Source Pulse Rate 103 H 111 H 97 H Pulse Rate [Right Finger] Pulse Rate from SpO2 Sensor 101 H 111 H 96 H Respiratory Rate 20 22 16 Respiratory Effort / Characteristics Blood Pressure Blood Pressure [Right Radial Artery] Blood Pressure Mean Blood Pressure Mean [Right Radial Artery] Pulse Oximetry 90 92 93 Oxygen Delivery Method Oxygen Flow Rate Sepsis Recent Fever Within 48 Hours Sepsis New/Unexplained Change in Mental Status Sepsis Action Taken by Nursing Oxygen Flow Rate - Titration Pulse Oximetry Post Tiitration 05/15/25 15:45 05/15/25 15:48 05/15/25 15:51 Temperature Temperature Source Pulse Rate 84 Pulse Rate [Right Finger] 85 84 Pulse Rate from SpO2 Sensor 83 Respiratory Rate 18 22 17 Respiratory Effort / Characteristics Spontaneous Short of Breath Blood Pressure Blood Pressure [Right Radial Artery] 129/76 Blood Pressure Mean Blood Pressure Mean [Right Radial Artery] 93 Pulse Oximetry 96 93 95 Oxygen Delivery Method Nebulizer Nasal Cannula Oxygen Flow Rate 3 Sepsis Recent Fever Within 48 Hours Sepsis New/Unexplained Change in Mental Status Sepsis Action Taken by Nursing Oxygen Flow Rate - Titration Pulse Oximetry Post Tiitration 05/15/25 16:00 05/15/25 16:00 05/15/25 16:10 Temperature Temperature Source Pulse Rate 79 79 Pulse Rate [Right Finger] 83 Pulse Rate from SpO2 Sensor 79 Respiratory Rate 20 23 Respiratory Effort / Characteristics Blood Pressure Blood Pressure [Right Radial Artery] 110/61 Blood Pressure Mean Blood Pressure Mean [Right Radial Artery] 77 Pulse Oximetry 96 95 Oxygen Delivery Method Nebulizer Oxygen Flow Rate Sepsis Recent Fever Within 48 Hours Sepsis New/Unexplained Change in Mental Status Sepsis Action Taken by Nursing Oxygen Flow Rate - Titration Pulse Oximetry Post Tiitration 05/15/25 16:12 05/15/25 16:21 05/15/25 16:22 Temperature Temperature Source Pulse Rate 82 82 Pulse Rate [Right Finger] Pulse Rate from SpO2 Sensor 82 82 Respiratory Rate 23 23 Respiratory Effort / Characteristics Blood Pressure 110/61 Blood Pressure [Right Radial Artery] Blood Pressure Mean 81 Blood Pressure Mean [Right Radial Artery] Pulse Oximetry 94 94 Oxygen Delivery Method Oxygen Flow Rate Sepsis Recent Fever Within 48 Hours Sepsis New/Unexplained Change in Mental Status Sepsis Action Taken by Nursing Oxygen Flow Rate - Titration Pulse Oximetry Post Tiitration 05/15/25 16:22 05/15/25 16:22 05/15/25 16:22 Temperature Temperature Source Pulse Rate Pulse Rate [Right Finger] Pulse Rate from SpO2 Sensor Respiratory Rate Respiratory Effort / Characteristics Blood Pressure 110/61 110/61 110/61 Blood Pressure [Right Radial Artery] Blood Pressure Mean 81 81 81 Blood Pressure Mean [Right Radial Artery] Pulse Oximetry Oxygen Delivery Method Oxygen Flow Rate Sepsis Recent Fever Within 48 Hours Sepsis New/Unexplained Change in Mental Status Sepsis Action Taken by Nursing Oxygen Flow Rate - Titration Pulse Oximetry Post Tiitration 05/15/25 16:22 05/15/25 16:30 05/15/25 16:42 Temperature Temperature Source Pulse Rate 86 80 Pulse Rate [Right Finger] Pulse Rate from SpO2 Sensor 85 82 Respiratory Rate 23 20 Respiratory Effort / Characteristics Blood Pressure 110/61 Blood Pressure [Right Radial Artery] Blood Pressure Mean 81 Blood Pressure Mean [Right Radial Artery] Pulse Oximetry 93 94 Oxygen Delivery Method Oxygen Flow Rate Sepsis Recent Fever Within 48 Hours Sepsis New/Unexplained Change in Mental Status Sepsis Action Taken by Nursing Oxygen Flow Rate - Titration Pulse Oximetry Post Tiitration 05/15/25 16:49 05/15/25 16:51 05/15/25 16:56 Temperature Temperature Source Pulse Rate 99 H Pulse Rate [Right Finger] Pulse Rate from SpO2 Sensor 100 H Respiratory Rate 22 Respiratory Effort / Characteristics Blood Pressure 130/68 Blood Pressure [Right Radial Artery] Blood Pressure Mean 83 Blood Pressure Mean [Right Radial Artery] Pulse Oximetry 90 89 L Oxygen Delivery Method Nasal Cannula Oxygen Flow Rate 2 Sepsis Recent Fever Within 48 Hours Sepsis New/Unexplained Change in Mental Status Sepsis Action Taken by Nursing Oxygen Flow Rate - Titration 4 Pulse Oximetry Post Tiitration 91 05/15/25 17:00 05/15/25 17:00 05/15/25 17:00 Temperature Temperature Source Pulse Rate Pulse Rate [Right Finger] Pulse Rate from SpO2 Sensor Respiratory Rate Respiratory Effort / Characteristics Blood Pressure 122/77 122/77 122/77 Blood Pressure [Right Radial Artery] Blood Pressure Mean 93 93 93 Blood Pressure Mean [Right Radial Artery] Pulse Oximetry Oxygen Delivery Method Oxygen Flow Rate Sepsis Recent Fever Within 48 Hours Sepsis New/Unexplained Change in Mental Status Sepsis Action Taken by Nursing Oxygen Flow Rate - Titration Pulse Oximetry Post Tiitration 05/15/25 17:00 05/15/25 17:00 05/15/25 17:00 Temperature Temperature Source Pulse Rate 98 H Pulse Rate [Right Finger] Pulse Rate from SpO2 Sensor 97 H Respiratory Rate 29 H Respiratory Effort / Characteristics Blood Pressure 122/77 122/77 Blood Pressure [Right Radial Artery] Blood Pressure Mean 93 93 Blood Pressure Mean [Right Radial Artery] Pulse Oximetry 92 Oxygen Delivery Method Nasal Cannula Oxygen Flow Rate 4 Sepsis Recent Fever Within 48 Hours Sepsis New/Unexplained Change in Mental Status Sepsis Action Taken by Nursing Oxygen Flow Rate - Titration Pulse Oximetry Post Tiitration 05/15/25 17:12 05/15/25 17:55 Temperature Temperature Source Pulse Rate 92 H Pulse Rate [Right Finger] 95 H Pulse Rate from SpO2 Sensor 94 H Respiratory Rate 24 19 Respiratory Effort / Characteristics Spontaneous Blood Pressure Blood Pressure [Right Radial Artery] Blood Pressure Mean Blood Pressure Mean [Right Radial Artery] Pulse Oximetry 92 92 Oxygen Delivery Method Nasal Cannula Oxygen Flow Rate 3 Sepsis Recent Fever Within 48 Hours Sepsis New/Unexplained Change in Mental Status Sepsis Action Taken by Nursing Oxygen Flow Rate - Titration Pulse Oximetry Post Tiitration VITAL SIGNS - Vital signs and nursing notes were reviewed. Tachycardic and hypoxic, otherwise stable and afebrile GENERAL - 20-year-old female appearing her stated age who is in no acute distress. Communicates well with provider and answers questions appropriately. SKIN - Without rashes. HEAD - NC/AT. EYES - Sclera anicteric. MOUTHno perioral cyanosis. There is no drooling, stridor, trismus. Patient does have bilateral wheezing appreciated and she is conversationally dyspneic. NECK - Neck with FROM. No nuchal rigidity. LUNGS -bilateral wheezing right greater than left CARDIAC - RRR EXTREMITIES - No clubbing or peripheral cyanosis. +5/5 strength noted in UE/LE bilaterally. NEUROLOGIC - Cranial nerves grossly intact PSYCH -alert, oriented and pleasant on exam Course Administered Medications Albuterol (Albut/Ipratrop 3mg/0.5mg Neb 3 Ml Vial) 3 ml NEB QIDR MENDOZA; Protocol Stop: 06/14/25 20:06 Last Admin: 05/15/25 20:21 Dose: 3 ml Documented By: ELIGIO Aripiprazole (Aripiprazole 15 Mg Tab) 15 mg PO QPM MENDOZA Stop: 06/14/25 20:59 Last Admin: 05/15/25 21:15 Dose: 15 mg Documented By: MENDY Escitalopram Oxalate (Escitalopram Oxalate 10 Mg Tab) 10 mg PO QPM MENDOZA Stop: 06/14/25 20:59 Last Admin: 05/15/25 21:15 Dose: 10 mg Documented By: MENDY Famotidine (Famotidine 20 Mg Tab) 20 mg PO BID MENDOZA Stop: 06/14/25 20:59 Last Admin: 05/15/25 21:15 Dose: 20 mg Documented By: MENDY Guaifenesin (Guaifenesin 600 Mg Tabcr) 1,200 mg PO Q12 MENDOZA Stop: 06/14/25 20:59 Last Admin: 05/15/25 21:15 Dose: 1,200 mg Documented By: MENDY Methylprednisolone 60 mg/ (Syringe) 0.96 mls @ 1.5 mls/min IV Q12H MENDOZA Stop: 06/14/25 21:59 Last Admin: 05/15/25 21:15 Dose: 1.5 mls/min Documented By: MENDY Miscellaneous (Order Awaiting Action) 1 each N/A QS MENDOZA Stop: 06/15/25 00:00 Last Admin: 05/15/25 23:17 Dose: Not Given Documented By: MENDY Miscellaneous (Mesalamine Order Awaiting Action) 1 each N/A QS MENDOZA Stop: 06/15/25 00:00 Last Admin: 05/15/25 23:16 Dose: Not Given Documented By: MENDY Montelukast Sodium (Montelukast Sodium 10 Mg Tablet) 10 mg PO QPM MENDOZA Stop: 06/14/25 20:59 Last Admin: 05/15/25 21:15 Dose: 10 mg Documented By: MENDY Nicotine (Nicotine 7 Mg/24 Hr Tdsy) 1 patch TD QAM MENDOZA Stop: 06/14/25 21:14 Last Admin: 05/15/25 21:39 Dose: 1 patch Documented By: MENDY Triamcinolone Acetonide (Triamcinolone Acet 0.1% Cr 80 Gm Tube) 1 appln EXT TID MENDOZA Stop: 06/14/25 20:59 Last Admin: 05/15/25 21:15 Dose: 1 appln Documented By: MENDY Discontinued Medications Albuterol (Albut/Ipratrop 3mg/0.5mg Neb 3 Ml Vial) 12 ml NEB ONE ONE; Protocol Stop: 05/15/25 15:34 Last Admin: 05/15/25 15:47 Dose: 12 ml Documented By: aida Albuterol (Albut/Ipratrop 3mg/0.5mg Neb 3 Ml Vial) 12 ml NEB ONE ONE; Protocol Stop: 05/15/25 17:20 Last Admin: 05/15/25 17:39 Dose: Not Given Documented By: NORMAN Albuterol (Albuterol 0.5% Neb Soln 2.5 Mg/0.5 Ml Vial) 10 mg NEB NOW STA; Protocol Stop: 05/15/25 17:41 Last Admin: 05/15/25 17:55 Dose: 10 mg Documented By: NORMAN Magnesium Sulfate/Dextrose (Magnesium Sulfate / D5w) 1 gm in 100 mls @ 100 mls/hr IV NOW STA Stop: 05/15/25 16:33 Last Infusion: 05/15/25 16:45 Dose: Infused Documented By: mls Admin: 05/15/25 15:45 Dose: 100 mls/hr Documented By: aida Methylprednisolone (Methylprednisolone 125 Mg/2 Ml Vial) 60 mg IV NOW STA Stop: 05/15/25 15:36 Last Admin: 05/15/25 15:45 Dose: 60 mg Documented By: aida Medical Decision Making Laboratory Data 05/15/25 15:30 05/15/25 15:30 Lab Results 05/15/25 05/15/25 Range/Units 15:30 15:50 WBC 11.02 H (4.8-10.8) K/ul RBC 4.84 (4.20-5.40) M/uL Hgb 14.1 (12.0-16.0) g/dl Hct 42.1 (37.0-47.0) % MCV 87.0 (80.0-100.0) fL MCH 29.1 (25.0-34.0) pg MCHC 33.5 (32.0-36.0) g/dL RDW Std Deviation 39.4 (36.4-46.3) fL RDW Coeff of Carlos 12.4 (11.5-14.5) % Plt Count 417 H (130-400) K/uL MPV 9.9 (9.4-12.4) fL Immature Gran % (Auto) 0.4 % Neut % (Auto) 49.2 % Lymph % (Auto) 24.5 % Addison % (Auto) 7.1 % Eos % (Auto) 17.7 % Baso % (Auto) 1.1 % Neut # (Auto) 5.43 (1.40-6.50) K/uL Lymph # (Auto) 2.70 (1.20-3.40) K/uL Addison # (Auto) 0.78 H (0.11-0.59) K/uL Eos # (Auto) 1.95 H (0.00-0.50) K/uL Baso # (Auto) 0.12 (0.00-0.20) K/uL Immature Gran # (Auto) 0.04 (0.01-0.20) K/uL PT 12.4 H (9.0-12.0) Seconds INR 1.2 H (0.9-1.1) APTT 30 (21-31) Seconds PTT Ratio 1.1 VBG pH 7.37 (7.36-7.41) VBG pCO2 39 (38-50) mmHg VBG pO2 50 mmHg VBG HCO3 23 mmol/L VBG O2 Saturation 79.3 % VBG Base Excess -2.5 mEq/L Sodium 138 (136-145) mmol/L Potassium 4.1 (3.5-5.1) mmol/L Chloride 107 (98-107) mmol/L Carbon Dioxide 22 (21-32) mmol/L Anion Gap 9 (3-11) BUN 13 (6-23) mg/dl Creatinine 0.75 (0.6-1.2) mg/dl Est Cr Clr Drug Dosing 129.6 ml/min eGFR 115.37 BUN/Creatinine Ratio 17.3 (10-20) Glucose 103 H (70-99(Fasting)) mg/dl Calcium 9.9 (8.6-10.3) mg/dl Magnesium 2.0 (1.7-2.4) mg/dl Total Bilirubin 0.5 (0.2-1.0) mg/dl AST 17 (13-39) U/L ALT 15 (7-52) U/L Alkaline Phosphatase 77 (34-104) U/L Total Protein 8.1 (6.0-8.3) gm/dl Albumin 4.5 (3.4-5.0) gm/dl Globulin 3.6 (2.5-4.0) gm/dl Albumin/Globulin Ratio 1.3 (0.9-2) HCG, Qual Negative (Negative) Imaging Data Radiologist's Impression: Chest X-Ray 05/15/25 15:33 Chest radiograph, one view History: Chest pain Comparison: None Findings: Single AP view of the chest performed. No focal consolidation or pleural effusion. No pneumothorax. The cardiomediastinal silhouette is within normal limits. Normal pulmonary vascularity. No evidence for lymphadenopathy. No visualized bony or soft tissue abnormality. Impression: Normal chest radiograph Electronically signed by John Lockhart 05-15-2025 4:13 PM MDM Narrative Patient was seen and evaluated as above in room A03. Review was performed of nursing notes and vital signs. I did review pertinent previous visits and patient history. After obtaining a thorough history and physical examination the above work up was performed. Patient presents to us today with a significant asthma history previously requiring intubation and ICU hospitalization. The patient is conversationally dyspneic and hypoxic on arrival. EKG per my interpretation reveals sinus tachycardia at rate of 102 bpm. QTc 466. QRS 90. No ST elevation Options of care were discussed with the patient. Patient responded well to DuoNeb here, IV magnesium and IV methylprednisolone. However following the DuoNeb she was still noted to be mildly dyspneic however wheezing did improve. I did call respiratory dept to help arrange prompt treatment. They did help add another hour long breathing treatment, albuterol. Labs reveal leukocytosis 11.02. No anemia. INR 1.2. VBG normal. There is no evidence of kidney or liver failure. hCG negative. BioFire panel returned negative. Chest x-ray as above and was essentially negative for acute process. Patient feeling better at this time. The patient certainly requires a hospitalization at this time. Case discussed with the hospitalist service. Please read further documentation regarding her stay. GCS: 15 In the evaluation and treatment of this patient the following differential diagnoses were entertained: Pneumonia, asthma exacerbation, PE, among others. Impression & Plan Asthma exacerbation, Acute respiratory failure with hypoxia Discharge Plan Visit Data Chief Complaint: Shortness of Breath/Dyspnea Stated Complaint: CAN'T BREATHE ED Provider: Ladonna Simmons ED Midlevel Provider: Brice Del Rio Discharge Problem: Asthma exacerbation, Acute respiratory failure with hypoxia Patient Disposition: Admitted As Inpatient Condition: Fair Discharge Instructions Interventions: ED Discharge Assessment Last Done: 05/15/25 19:53
[2025-05-15] MEDS: MAGNESIUM SULFATE / D5W 1 GM/100 ML BAG IV STA (15:45)
[2025-05-15] MEDS: ALBUT/IPRATROP 3MG/0.5MG NEB 3 ML VIAL NEB ONE ×2 (15:47→17:39)
[2025-05-15 15:51] LABS: Hematocrit (blood only) 42.1 % (37.0-47.0); Hemoglobin 14.1 g/dl (12.0-16.0); Immature Granulocytes # (auto) 0.04 K/uL (0.01-0.20); Immature Granulocytes % (auto) 0.4 %; Mean Corpuscular Hemoglobin 29.1 pg (25.0-34.0); Mean Corpuscular Volume 87.0 fL (80.0-100.0); Platelet Count 417 K/uL (130-400); RDW Standard Deviation 39.4 fL (36.4-46.3); Red Blood Count 4.84 M/uL (4.20-5.40); White Blood Count 11.02 K/ul (4.8-10.8)
[2025-05-15 15:57] LABS: Base Excess VBG -2.5 mEq/L; HCO3 VBG 23 mmol/L; Oxygen Saturation VBG 79.3 %; PCO2 VBG 39 mmHg (38-50); PO2 VBG 50 mmHg; pH VBG 7.37 (7.36-7.41)
[2025-05-15 16:04] LABS: Pregnancy Test, Serum Negative (Negative)
[2025-05-15 16:07] LABS: Alanine Aminotransferase 15.0 U/L (7-52); Albumin Globulin Ratio 1.3 (0.9-2); Albumin Level 4.5 gm/dl (3.4-5.0); Alkaline Phosphatase 77.0 U/L (34-104); Anion Gap 9.0 (3-11); Bilirubin,Total 0.5 mg/dl (0.2-1.0); Blood Urea Nitrogen 13.0 mg/dl (6-23); Calcium 9.9 mg/dl (8.6-10.3); Carbon Dioxide 22.0 mmol/L (21-32); Chloride 107.0 mmol/L (98-107); Creatinine Clr Calc Pharmacy 129.6 ml/min; Globulin 3.6 gm/dl (2.5-4.0); Glucose 103.0 mg/dl (70-99(Fasting)); Magnesium 2.0 mg/dl (1.7-2.4); Potassium 4.1 mmol/L (3.5-5.1); Sodium 138.0 mmol/L (136-145); Total Protein 8.1 gm/dl (6.0-8.3)
--- NOTE | 2025-05-15 16:14 | XRay Report ---
Chest radiograph, one view History: Chest pain Comparison: None Findings: Single AP view of the chest performed. No focal consolidation or pleural effusion. No pneumothorax. The cardiomediastinal silhouette is within normal limits. Normal pulmonary vascularity. No evidence for lymphadenopathy. No visualized bony or soft tissue abnormality. Impression: Normal chest radiograph Electronically signed by John Lockhart 05-15-2025 4:13 PM
[2025-05-15 16:35] LABS: INR 1.2 (0.9-1.1); Partial Thromboplastin Time 30 Seconds (21-31); Prothrombin Time 12.4 Seconds (9.0-12.0)
[2025-05-15 16:56] LABS: Chlamydia pneumoniae PCR Not Detected (NotDetected); Coronavirus 229E PCR Not Detected (NotDetected); Coronavirus CoV-2 (COVID19)PCR Not Detected (NotDetected); Coronavirus HKU1 PCR Not Detected (NotDetected); Coronavirus NL63 PCR Not Detected (NotDetected); Coronavirus OC43PCR Not Detected (NotDetected); Human Metapneumovirus PCR Not Detected (NotDetected); Parainfluenza Virus 1 PCR Not Detected (NotDetected); Parainfluenza Virus 2 PCR Not Detected (NotDetected); Parainfluenza Virus 3 PCR Not Detected (NotDetected); Parainfluenza Virus 4 PCR Not Detected (NotDetected); Respiratory Syncytial VirusPCR Not Detected (NotDetected); Rhinovirus/Enterovirus PCR Not Detected (NotDetected)
[2025-05-15] MEDS: ALBUTEROL 0.5% NEB SOLN 2.5 MG/0.5 ML VIAL NEB STA (17:55)
--- NOTE | 2025-05-15 17:57 | History & Physical Report ---
Date of Service May 15, 2025 Assessment & Plan (1) Acute asthma exacerbation: (2) Acute respiratory failure with hypoxia: (3) Eosinophilia: (4) Ulcerative colitis: (5) ADHD: (6) Current every day vaping: Plan 20yo female with history of asthma, ulcerative colitis, and allergic rhinitis who presents with 4 days of cough, yellow sputum production, wheezing, worsening dyspnea and dyspnea on exertion, and sore throat. Has been using albuterol neb treatments frequently at home without relief of symptoms. #acute hypoxic respiratory failure 2nd to asthma exacerbation - -continue NC O2 to keep sats >92% -s/p IV solumedrol 60mg x 1 in the ER; cont IV solumedrol 60mg q12h thereafter -duonebs QID -cont home Trelegy -add mucinex BID -flutter valve -incentive spirometry -cont singulair -trigger of this exacerbation - allergies (cats, etc)? smoking/vaping? viral process? -respiratory BioFire negative -needs smoking cessation -based on her use of albuterol nebs at home (nearly daily use of such) she has severe persistent asthma #eosinophilia - -has had such in the past -worrisome for eosinophilic asthma -send to allergy/immunology post-d/c -needs allergen testing -repeat CBC w/ diff in am #UC - -cont mesalamine #vaping - -rehabilitation counsellor to quit -nicoderm patch #psych / ADHD - -cont all home meds (aripiprazole HS, vyvanse, lexapro) -melatonin HS sleep #DVT proph - -defer on chemical means for now History of Present Illness Chief Complaint: cough, wheezing, worsening dyspnea x 4 days Primary Care Provider: GEO Glover 20yo female with history of asthma, ulcerative colitis, and allergic rhinitis who presents with 4 days of cough, yellow sputum production, wheezing, worsening dyspnea and dyspnea on exertion, and sore throat. Has been using albuterol neb treatments frequently at home without relief of symptoms. Has had normal appetite. No fevers, chills, sick contacts or travel outside the area. Does have 2 cats at home; no dogs. Works at a restaurant and bar for full-time work. Upon presentation today her O2 sats in room air were 87%. Some of her respiratory rates were >25 breaths/min while in the ER. During my visit she was satting 94% on 3 liters NC O2. Allergies Allergy/AdvReac Type Severity Reaction Status Date / Time nickel Allergy Intermediate Rash Unverified 04/06/25 09:50 perfume Allergy Unknown Sneezing Unverified 04/06/25 09:50 No Known Drug Allergies Allergy Verified 04/06/25 09:50 Home Medications Medication Instructions Recorded Confirmed Type escitalopram oxalate 10 mg tablet 10 mg PO QPM 08/13/23 05/15/25 History (Lexapro) lisdexamfetamine 70 mg capsule 70 mg PO QAM 04/25/24 05/15/25 History (Vyvanse) albuterol sulfate 90 mcg/actuation 2 inh inhalation Q6H PRN shortness 04/04/25 05/15/25 Rx aerosol inhaler of breath or wheezing #8.5 grams aripiprazole 15 mg tablet (Abilify) 15 mg PO QPM 04/06/25 05/15/25 History fluticasone fur. 200 mcg-umeclid 1 inh inhalation DAILY #60 ea 04/06/25 05/15/25 Rx 62.5 mcg-vilant 25 mcg inhalat.powder (Trelegy Ellipta) mesalamine 1.2 gram tablet,delayed 2.4 g PO QPM 04/20/25 05/15/25 History release montelukast 10 mg tablet 10 mg PO QPM 04/20/25 05/15/25 History (Singulair) albuterol sulfate 1.25 mg/3 mL 2.5 mg (6 mL) inhalation Q4H PRN 04/22/25 05/15/25 Rx solution for nebulization shortness of breath or wheezing #90 mL Past Med/Surg History Problem List (Updated 05/15/25 @ 17:29 by Brice Del Rio PA-C) Acute respiratory failure with hypoxia (Acute) Rhinovirus infection (Acute) Acute asthma exacerbation (Acute) Inflammatory bowel disease Rash Aspiration into airway Aspiration pneumonia Multifocal pneumonia Tobacco abuse (Acute) Hyperglycemia (Acute) Increased anion gap metabolic acidosis Respiratory acidosis Status asthmaticus (Acute) Respiratory arrest (Acute) Asthma exacerbation (Acute) Syncopal episodes Medical History Ulcerative colitis Borderline personality disorder Asthma Eosinophilia Cocaine abuse Current every day vaping Depression ADHD Surgical History History of tonsillectomy History of colonoscopy Family History (Updated 05/15/25 @ 20:57 by Brayden Pascual MD) Grandmother (Paternal) Cancer Breast cancer Grandmother (Maternal) Diabetes Psoriatic arthritis Mother Psoriatic arthritis Denies family history of Ovarian cancer Prostate cancer Myocardial infarction Lung cancer Colorectal cancer Social History (Updated 05/15/25 @ 20:58 by Brayden Pascual MD) Smoking Status: Never smoker Tobacco Type: E-cigarettes / Vaping Age Started Using Tobacco: 17; packs per day: 0.005; Second Hand Exposure: Yes; Do You Dip or Chew Tobacco: No; Hx Alcohol Use: No (unknown) Hx Substance Use: Yes Non-Prescribed Medications: Crack / Cocaine and Marijuana Last Used Substance: Unknown Preferred Language: Chinese Communication Ability: Effective Visual Impairment: Limited Hearing Ability: Normal Technical Service Specialist Required: No Beliefs That Will Affect Care: None marital status: Single Current Living Situation: Significant Other Current Living Situation Comment: apartment with roommates current occupational status: employed current occupation: Normal How many Children do You have: 0 Feels Safe at Home: Yes Childhood Exposure to Second-Hand Smoke: Yes caffeine: Yes Dental Care, Regularly: No Physical Activity Frequency: 1-2 Times per Week Seatbelt Use: always Sunscreen Use: Yes Assistive Devices: Nebulizer Review of Systems Review of Systems: gen - no fevers, no chills, no weight change eyes - no ocular symptoms HENT - some sore throat & hoarse voice; no nasal discharge; no ear pain CV - no chest pain, no chest tightness, no LE edema pulm - cough, congestion, sputum production (yellow), wheezing, dyspnea, MCMAHON GI - no abd pain, nausea, emesis, diarrhea, blood in stool - no dysuria musculo - no arthralgias skin - chronic erythematous rash in b/l axillary regions, behind the knees, etc. No generalized urticaria endo - no diabetes neuro - no headache Physical Exam Physical Exam: gen - no distress at time of my assessment (had had 1-hour long duoneb prior to my visit), awake, alert, can talk in complete sentences eyes - PERRL HENT - MMM, no thrush, no lesions; nose - boggy turbinates neck - no JVD, no lymph nodes, no goiter heart - tachy, s1 s2, no murmur lungs - poor airation, extensive wheezing anteriorly and posteriorly, no rales; decreased BS both bases abd - soft NT ND BS+ ext - no edema, pulses 2+ b/l feet psych - a/o x 3 neuro - strength 5/5 x 4 exts, DTRs 2+ b/l skin - erythematous papular rash b/l axillary regions, mild scale & dry texture; no urticaria Results & Data Results & Data Vital Signs (Past 12 Hours) Vital Signs Temp Pulse Pulse Resp BP BP Pulse Ox 05/15/25 17:12 92 H 24 92 05/15/25 17:00 98 H 29 H 92 05/15/25 17:00 122/77 05/15/25 17:00 122/77 05/15/25 17:00 122/77 05/15/25 17:00 122/77 05/15/25 17:00 122/77 05/15/25 16:56 89 L 05/15/25 16:51 99 H 22 90 05/15/25 16:49 130/68 05/15/25 16:42 80 20 94 05/15/25 16:30 86 23 93 05/15/25 16:22 110/61 05/15/25 16:22 110/61 05/15/25 16:22 110/61 05/15/25 16:22 110/61 05/15/25 16:22 110/61 05/15/25 16:21 82 23 94 05/15/25 16:12 82 23 94 05/15/25 16:10 79 05/15/25 16:00 79 23 95 05/15/25 16:00 83 20 110/61 96 05/15/25 15:51 84 17 95 05/15/25 15:48 84 22 93 05/15/25 15:45 85 18 129/76 96 05/15/25 15:42 97 H 16 93 05/15/25 15:30 111 H 22 92 05/15/25 15:27 103 H 20 90 05/15/25 15:26 129/76 05/15/25 15:26 129/76 05/15/25 15:26 129/76 05/15/25 15:26 129/76 05/15/25 15:26 129/76 05/15/25 15:20 36.6 C 104 H 20 112/68 87 L O2 Del Method O2 Flow Rate 05/15/25 17:12 05/15/25 17:00 Nasal Cannula 4 05/15/25 17:00 05/15/25 17:00 05/15/25 17:00 05/15/25 17:00 05/15/25 17:00 05/15/25 16:56 Nasal Cannula 2 05/15/25 16:51 05/15/25 16:49 05/15/25 16:42 05/15/25 16:30 05/15/25 16:22 05/15/25 16:22 05/15/25 16:22 05/15/25 16:22 05/15/25 16:22 05/15/25 16:21 05/15/25 16:12 05/15/25 16:10 05/15/25 16:00 05/15/25 16:00 Nebulizer 05/15/25 15:51 05/15/25 15:48 Nasal Cannula 3 05/15/25 15:45 Nebulizer 05/15/25 15:42 05/15/25 15:30 05/15/25 15:27 05/15/25 15:26 05/15/25 15:26 05/15/25 15:26 05/15/25 15:26 05/15/25 15:26 05/15/25 15:20 Room Air Laboratory Results Laboratory Results - last 24 hr 05/15/25 05/15/25 05/15/25 15:30 15:50 Unknown WBC 11.02 H RBC 4.84 Hgb 14.1 Hct 42.1 MCV 87.0 MCH 29.1 MCHC 33.5 RDW Std Deviation 39.4 RDW Coeff of Carlos 12.4 Plt Count 417 H MPV 9.9 Immature Gran % (Auto) 0.4 Neut % (Auto) 49.2 Lymph % (Auto) 24.5 [place] % (Auto) 7.1 Eos % (Auto) 17.7 Baso % (Auto) 1.1 Neut # (Auto) 5.43 Lymph # (Auto) 2.70 [place] # (Auto) 0.78 H Eos # (Auto) 1.95 H Baso # (Auto) 0.12 Immature Gran # (Auto) 0.04 PT 12.4 H INR 1.2 H APTT 30 PTT Ratio 1.1 VBG pH 7.37 VBG pCO2 39 VBG pO2 50 VBG HCO3 23 VBG O2 Saturation 79.3 VBG Base Excess -2.5 Sodium 138 Potassium 4.1 Chloride 107 Carbon Dioxide 22 Anion Gap 9 BUN 13 Creatinine 0.75 Est Cr Clr Drug Dosing 129.6 eGFR 115.37 BUN/Creatinine Ratio 17.3 Glucose 103 H Calcium 9.9 Magnesium 2.0 Total Bilirubin 0.5 AST 17 ALT 15 Alkaline Phosphatase 77 Total Protein 8.1 Albumin 4.5 Globulin 3.6 Albumin/Globulin Ratio 1.3 HCG, Qual Negative Adenovirus (PCR) Not Detected B. pertussis DNA (PCR) Not Detected B.parapertussis DNA PCR Not Detected C. pneumoniae DNA (PCR) Not Detected Coronavirus OC43 (PCR) Not Detected Coronavirus HKU1 (PCR) Not Detected Coronavirus 229E (PCR) Not Detected SARS-CoV-2 (PCR) Not Detected Coronavirus NL63 (PCR) Not Detected Human Metapneumovir PCR Not Detected Influenza Type A (PCR) Not Detected Influenza Type B (PCR) Not Detected M. pneumoniae (PCR) Not Detected Parainfluenza 1 (PCR) Not Detected Parainfluenza 2 (PCR) Not Detected Parainfluenza 3 (PCR) Not Detected Parainfluenza 4 (PCR) Not Detected RSV (PCR) Not Detected Entero/Rhino (PCR) Not Detected Diagnostic Findings Chest X-Ray 05/15/25 15:33 Chest radiograph, one view History: Chest pain Comparison: None Findings: Single AP view of the chest performed. No focal consolidation or pleural effusion. No pneumothorax. The cardiomediastinal silhouette is within normal limits. Normal pulmonary vascularity. No evidence for lymphadenopathy. No visualized bony or soft tissue abnormality. Impression: Normal chest radiograph Electronically signed by Jonh Lockhart 05-15-2025 4:13 PM ECG Additional Comments: EKG - my reading - sinus tachycardia, no ST changes Code Status & VTE Plan Code Status full code PG Care Time/CCT Total # of Minutes Spent Total Time Spent with Patient: Total time spent is greater than 50% in coordination of care (as documented) at patient's floor/unit and/or counseling patient: Coding Level of Care Code 95265 INT INP/OBS CARE MIN Diagnoses Acute asthma exacerbation J45.901 Acute respiratory failure with hypoxia J96.01 Eosinophilia, unspecified type D72.10 Eosinophilia type: unspecified eosinophilia Ulcerative colitis K51.90 ADHD F90.9 Current every day vaping Z72.89 (3) Eosinophilia Eosinophilia type: unspecified eosinophilia Qualified Code(s): D72.10 - Eosinophilia, unspecified
[2025-05-15] MEDS ORDERED: ONDANSETRON INJ 2 MG/ML 2 ML VIAL IV PRN (20:07)
[2025-05-15] MEDS ORDERED: ACETAMINOPHEN 325 MG TAB PO PRN (20:07)
[2025-05-15] MEDS ORDERED: MELATONIN 3 MG TAB PO PRN (20:07)
[2025-05-15] MEDS: ALBUT/IPRATROP 3MG/0.5MG NEB 3 ML VIAL NEB SCH (20:21)
[2025-05-15] MEDS: guaiFENesin 600 MG TABCR PO SCH (21:15)
[2025-05-15] MEDS: ESCITALOPRAM OXALATE 10 MG TAB PO SCH (21:15)
[2025-05-15] MEDS: FAMOTIDINE 20 MG TAB PO SCH (21:15)
[2025-05-15] MEDS: ARIPiprazole 15 MG TAB PO SCH (21:15)
[2025-05-15] MEDS: MONTELUKAST SODIUM 10 MG TABLET PO SCH (21:15)
[2025-05-15] MEDS: TRIAMCINOLONE ACET 0.1% CR 80 GM TUBE EXT SCH (21:15)
[2025-05-15] MEDS: NICOTINE 7 MG/24 HR TDSY TD SCH (21:39)
[2025-05-16 07:00] LABS: Hematocrit (blood only) 41.1 % (37.0-47.0); Hemoglobin 13.7 g/dl (12.0-16.0); Immature Granulocytes # (auto) 0.12 K/uL (0.01-0.20); Immature Granulocytes % (auto) 1.2 %; Mean Corpuscular Hemoglobin 29.1 pg (25.0-34.0); Mean Corpuscular Volume 87.4 fL (80.0-100.0); Platelet Count 433 K/uL (130-400); RDW Standard Deviation 39.8 fL (36.4-46.3); Red Blood Count 4.70 M/uL (4.20-5.40); White Blood Count 9.75 K/ul (4.8-10.8)
[2025-05-16 07:15] LABS: Anion Gap 8.0 (3-11); Blood Urea Nitrogen 11.0 mg/dl (6-23); Calcium 10.0 mg/dl (8.6-10.3); Carbon Dioxide 22.0 mmol/L (21-32); Chloride 107.0 mmol/L (98-107); Creatinine Clr Calc Pharmacy 161.9 ml/min; Glucose 152.0 mg/dl (70-99(Fasting)); Potassium 4.3 mmol/L (3.5-5.1); Sodium 137.0 mmol/L (136-145)
[2025-05-16] MEDS: UMECLIDINIUM/VILANTEROL 62.5/25MCG 7 PUFFS/INHALER INH SCH (08:37)
[2025-05-16] MEDS: FLUTICASONE FUROATE 200MCG 14 PUFFS/INHALER INH SCH (08:37)
[2025-05-16] MEDS: REMOVE NICODERM PATCH SCH (08:44)
[2025-05-16] MEDS ORDERED: NON-FORMULARY MEDICATION (Fluticasone-Umeclidin-Vilanter [Trelegy Ellipta] 200-62.5-25 mcg INH SCH (09:00)
[2025-05-16] MEDS: BENZONATATE 100 MG CAPSULE PO SCH (15:03)
--- NOTE | 2025-05-16 19:55 | Hospitalist Progress Note ---
Date of Service May 16, 2025 Assessment & Plan (1) Acute asthma exacerbation: (2) Acute respiratory failure with hypoxia: (3) Eosinophilia: (4) Ulcerative colitis: (5) ADHD: (6) Current every day vaping: Plan 20yo female with history of asthma, ulcerative colitis, and allergic rhinitis who presents with 4 days of cough, yellow sputum production, wheezing, worsening dyspnea and dyspnea on exertion, and sore throat. Has been using albuterol neb treatments frequently at home without relief of symptoms. #acute hypoxic respiratory failure 2nd to asthma exacerbation - -asthma flare SIGNIFICANTLY improved -cont steroids but wean IV solumedrol from 60mg q12h to 30mg q12h -duonebs QID -cont home Trelegy -cont mucinex BID -flutter valve -incentive spirometry -cont singulair -trigger of this exacerbation - allergies (cats, etc)? smoking/vaping? viral process? -respiratory BioFire negative -needs smoking cessation -based on her use of albuterol nebs at home (nearly daily use of such) she has severe persistent asthma -approved for [facility]? will check with Dr Colin from [facility] Pulmonary #eosinophilia - -has had such in the past -highly suggestive of eosinophilic asthma -send to allergy/immunology post-d/c for allergen testing, etc. -repeat CBC w/ diff today - eosinophils nearly 0 following steroids -approved for [facility] for her asthma??? -will inquire with Dr Colin # - -cont mesalamine #vaping - -retirement plan counselor to quit -nicoderm patch #psych / ADHD - -cont all home meds (aripiprazole HS, vyvanse, lexapro) -melatonin HS sleep #DVT proph - -defer on chemical means for now wean NC o2 home tomorrow? Admission and Anticipated Discharge Date Admission Date: May 15, 2025 Subjective patient overall feels much better wheezing & dyspnea improved still coughing which is her biggest complaint some sputum production pruritic rash armpits improved eating well Review of Systems Review of Systems: gen - no fevers cv - no chest pain or tightness or orthopnea pulm - no dyspnea at rest, MCMAHON improved states ?[facility] was approved for her asthma? Physical Exam Physical Exam: gen - no distress, occasional cough, looks better today HENT - MMM neck - no JVD heart - RRR, s1 s2, no murmur lungs - airation MUCH improved, extensive wheezing SIGNIFICANTLY better with mainly clear lungs today; no rales; decreased BS bases markedly improved abd - soft NT ND BS+ ext - no edema, pulses 2+ b/l feet skin - erythematous papular rash b/l axillary regions essentially resolved Results & Data Results & Data Vital Signs (Past 12 Hours) Vital Signs Temp Pulse Pulse Resp BP Pulse Ox O2 Del Method 05/16/25 19:39 36.4 C L 100 H 18 113/68 96 Nasal Cannula 05/16/25 19:37 104 H 18 94 Nasal Cannula 05/16/25 17:00 36.5 C 95 H 20 107/68 96 Nasal Cannula 05/16/25 14:33 78 18 96 Nasal Cannula 05/16/25 12:59 117 H 05/16/25 11:28 36.4 C L 106 H 16 121/70 95 Nasal Cannula 05/16/25 10:43 100 H 16 96 Nasal Cannula 05/16/25 09:32 Nasal Cannula 05/16/25 08:24 36.5 C 93 H 20 105/65 94 Room Air O2 Flow Rate 05/16/25 19:39 2 05/16/25 19:37 2 05/16/25 17:00 2 05/16/25 14:33 3 05/16/25 12:59 05/16/25 11:28 3 05/16/25 10:43 4 05/16/25 09:32 4 05/16/25 08:24 Laboratory Results Laboratory Results - last 24 hr 05/16/25 05:54 WBC 9.75 RBC 4.70 Hgb 13.7 Hct 41.1 MCV 87.4 MCH 29.1 MCHC 33.3 RDW Std Deviation 39.8 RDW Coeff of Carlos 12.5 Plt Count 433 H MPV 10.0 Immature Gran % (Auto) 1.2 Neut % (Auto) 86.4 Lymph % (Auto) 11.0 [place] % (Auto) 1.0 Eos % (Auto) 0.1 Baso % (Auto) 0.3 Neut # (Auto) 8.42 H Lymph # (Auto) 1.07 L [place] # (Auto) 0.10 L Eos # (Auto) 0.01 Baso # (Auto) 0.03 Immature Gran # (Auto) 0.12 Sodium 137 Potassium 4.3 Chloride 107 Carbon Dioxide 22 Anion Gap 8 BUN 11 Creatinine 0.61 Est Cr Clr Drug Dosing 161.9 eGFR 129.55 BUN/Creatinine Ratio 18.0 Glucose 152 H Calcium 10.0 PG Care Time/CCT Total # of Minutes Spent Total Time Spent with Patient: Total time spent is greater than 50% in coordination of care (as documented) at patient's floor/unit and/or counseling patient: Coding Level of Care Code 08449 SUB INP/OBS CARE 2/35MIN Diagnoses Acute asthma exacerbation J45.901 Acute respiratory failure with hypoxia J96.01 Eosinophilia, unspecified type D72.10 Eosinophilia type: unspecified eosinophilia Ulcerative colitis K51.90 ADHD F90.9 Current every day vaping Z72.89 (3) Eosinophilia Eosinophilia type: unspecified eosinophilia Qualified Code(s): D72.10 - Eosinophilia, unspecified
[2025-05-17 04:15] VITALS: TEMP 97.7
[2025-05-17 07:23] VITALS: BP 115/71
[2025-05-17 07:23] LABS: INR 1.1 (0.9-1.1); Prothrombin Time 11.7 Seconds (9.0-12.0)
[2025-05-17 07:25] LABS: Thyroid Stimulating Hormone 0.14 uIu/ml (0.300-4.500)
[2025-05-17 08:00] LABS: T4 Free Thyroxine 0.74 ng/dl (0.61-1.60)
[2025-05-17] MEDS: ERGOCALCIFEROL 1250 MCG (50,000 UNITS) CAP PO ONE (10:51)
[2025-05-17 11:25] VITALS: RESP 16; O2SAT 96
[2025-05-17 11:52] VITALS: PULSE 75
--- NOTE | 2025-05-17 11:52 | Discharge Summary ---
Discharge Summary Date of Service May 17, 2025 Principal Dx & Hospital Course #1 = Principal Diagnosis (1) Acute asthma exacerbation: (2) Acute respiratory failure with hypoxia: (3) Eosinophilia: (4) Ulcerative colitis: (5) ADHD: (6) Current every day vaping: Plan 20yo female with history of asthma, ulcerative colitis, and allergic rhinitis who presents with 4 days of cough, yellow sputum production, wheezing, worsening dyspnea and dyspnea on exertion, and sore throat. Has been using albuterol neb treatments frequently at home without relief of symptoms. #acute hypoxic respiratory failure 2nd to asthma exacerbation - -asthma flare SIGNIFICANTLY improved -cont steroids but wean IV solumedrol from 60mg q12h to 30mg q12h -duonebs QID -cont home Trelegy -cont mucinex BID -flutter valve -incentive spirometry -cont singulair -trigger of this exacerbation - allergies (cats, etc)? smoking/vaping? viral process? -respiratory BioFire negative -needs smoking cessation -based on her use of albuterol nebs at home (nearly daily use of such) she has severe persistent asthma -approved for Fasenra? will check with Dr Colin from [facility] [place] Pulmonary #eosinophilia - -has had such in the past -highly suggestive of eosinophilic asthma -send to allergy/immunology post-d/c for allergen testing, etc. -repeat CBC w/ diff today - eosinophils nearly 0 following steroids -approved for Fasenra for her asthma??? -will inquire with Dr Colin #[facility] - -cont mesalamine #vaping - -outreach counselor to quit -nicoderm patch #psych / ADHD - -cont all home meds (aripiprazole HS, vyvanse, lexapro) -melatonin HS sleep #DVT proph - -defer on chemical means for now wean NC o2 home tomorrow? Admission HPI Per Admitting Provider 20yo female with history of asthma, ulcerative colitis, and allergic rhinitis who presents with 4 days of cough, yellow sputum production, wheezing, worsening dyspnea and dyspnea on exertion, and sore throat. Has been using albuterol neb treatments frequently at home without relief of symptoms. Has had normal appetite. No fevers, chills, sick contacts or travel outside the area. Does have 2 cats at home; no dogs. Works at a restaurant and bar for full-time work. Upon presentation today her O2 sats in room air were 87%. Some of her respiratory rates were >25 breaths/min while in the ER. During my visit she was satting 94% on 3 liters NC O2. Discharge Exam gen - no distress, occasional cough, looks better today HENT - MMM neck - no JVD heart - RRR, s1 s2, no murmur lungs - airation MUCH improved, extensive wheezing SIGNIFICANTLY better with mainly clear lungs today; no rales; decreased BS bases markedly improved abd - soft NT ND BS+ ext - no edema, pulses 2+ b/l feet skin - erythematous papular rash b/l axillary regions essentially resolved Discharge Plan Discharge Items Patient Disposition: Home - Self-Care Reason For Visit: ASTHMA EXACERBATION,ACUTE HYPOXIC RESP FAILURE Discharge Diagnosis: 1. asthma exacerbation - improved 2. vitamin D deficiency 3. severe, chronic, persistent asthma - poorly controlled; follow-up with Dr Colin, [facility] 4. high levels of a type of white cell called "eosinophils"; this signifies that you may have a specific type of asthma called "eosinophilic asthma" -allergies (pollen, dust, mold, pets, etc) can also cause high eosinophils Activity: As commented below Activity Comment: gradually increase activities over the next 3-5 days Exercise/Sports: Wait until after follow-up appointment Non-emergency contact: Primary Care Provider and Cad Application Support Specialist Call non-emergency contact if: you have any medication questions, your symptoms worsen and you have a fever Follow-up/Referrals: Walter Parra CRNP [Primary Care Provider] - 05/24/25 9:30 am [facility] [Phys[facility] - 06/17/25 3:30 pm Diet: Regular Addtl Attending Provider Instructions: Ms Moss, You were hospitalized due to a severe asthma exacerbation. You improved nicely with IV steroids and nebulizer treatments. Oxygen has been weaned off. I spoke with Dr Colin from [facility] and he would like to see you soon to get you started on specific medicine to control your asthma. We also found that you have fairly severe vitamin D deficiency. Your vitamin D level was 13.9 (normal is >30). Recommendations - 1. prednisone course - start 05/18/25, take with food 2. vitamin D supplement - start on 05/24/25, and take ONCE a week 3. continue albuterol via spacer device OR albuterol via your nebulizer machine every 4 hours as needed for cough/wheeze/shortness of breath 4. continue your Breo 1 puff once a day; rinse your mouth with water after each use 5. resume Spiriva once daily 6. for cough may take benzonatate 100mg every 8 hours as needed; do not crush or chew 7. may use the triamcinolone cream in thin amounts to the rash in your armpits, behind the knees, etc - up to 3 times/day - for about 5-7 days then stop; avoid face & genitals 8. when you are ready to quit tobacco/vaping please talk with your family d lorior and your lung doctor about things that can help you quit 9. I will reach out to allergy and ask that they see you to get you some allergy testing Follow-up - see separate section Return to [facility] if - -you have fevers over 100 degrees -you have worsening shortness of breath -you have chest pains or severe chest tightness -any other concerns It was our pleasure to care for you! -Brayden Pascual Pending Studies at Discharge: No Stand-Alone Forms: My [facility], Work/School Release, Smoking Cessation Medications and DC Order Prescriptions: New triamcinolone acetonide 0.1 % Cream 1 applic EXT TID Qty: 1 0RF Rx Instructions: use in thin amounts to rash in armpits for about 5-7 days then stop; sample from [facility] provided benzonatate 100 mg Capsule 100 mg PO TID PRN (Reason: cough) Qty: 20 0RF fluticasone furoate-vilanterol [Breo Ellipta] 200-25 mcg/dose blister with device 1 inh inhalation DAILY Qty: 60 1RF tiotropium bromide [Spiriva with HandiHaler] 18 mcg capsule, w/inhalation device 1 cap inhalation DAILY Qty: 60 0RF Rx Instructions: puncture 1 cap using device; one dose = 2 inhalations prednisone 10 mg tablet 10 mg PO DIRECTED Qty: 15 0RF Rx Instructions: start 05/18, take with food. 3 tabs PO QD x 2 days; 2 tabs PO QD x 3 days; 1 tab PO QD x 3 days. ergocalciferol (vitamin D2) 1,250 mcg (50,000 unit) capsule 50,000 unit PO .once a week 49 Days Qty: 7 0RF Rx Instructions: start 05/24/25. Continued escitalopram oxalate [Lexapro] 10 mg tablet 10 mg PO QPM aripiprazole [Abilify] 15 mg tablet 15 mg PO QPM lisdexamfetamine [Vyvanse] 70 mg Capsule 70 mg PO QAM montelukast [Singulair] 10 mg tablet 10 mg PO QPM mesalamine 1.2 gram tablet,delayed release (DR/EC) 2.4 g PO QPM albuterol sulfate 1.25 mg/3 mL solution for nebulization 2.5 mg inhalation Q4H PRN (Reason: shortness of breath or wheezing or cough) Qty: 90 0RF Changed albuterol sulfate 90 mcg/actuation HFA aerosol inhaler 2 inh inhalation Q4H PRN (Reason: shortness of breath or wheezing or cough) Qty: 8.5 0RF Rx Instructions: use with spacer device Discontinued Trelegy Ellipta 200-62.5-25 mcg blister with device 1 inh inhalation DAILY Qty: 60 2RF Discharge Orders: Discharge Order (Routine); Ordered 05/17/25 Ordered By: Brayden Gonzalez/Other Patient Handouts: Asthma Triggers Allergens, Planning to Quit Smoking, Smoking Get Help to Quit, E Cigarettes and Vaping Admission Data Admit Date/Time: 05/15/25 18:03 Attending Provider: Brayden Pascual Admit Provider: Brayden Pascual Primary Care Provider: Walter Parra Other Providers: Brayden Pascual Hospital Stay Data Consultations 05/15/25 16:24 ED Decision to Admit Stat Pending Results Patient Have Any Pending Studies at Discharge: No Discharge Instructions Given to Patient (Per Discharging Provider) Ms Moss, You were hospitalized due to a severe asthma exacerbation. You improved nicely with IV steroids and nebulizer treatments. Oxygen has been weaned off. I spoke with Dr Colin from [facility] and he would like to see you soon to get you started on specific medicine to control your asthma. We also found that you have fairly severe vitamin D deficiency. Your vitamin D level was 13.9 (normal is >30). Recommendations - 1. prednisone course - start 05/18/25, take with food 2. vitamin D supplement - start on 05/24/25, and take ONCE a week 3. continue albuterol via spacer device OR albuterol via your nebulizer machine every 4 hours as needed for cough/wheeze/shortness of breath 4. continue your Breo 1 puff once a day; rinse your mouth with water after each use 5. resume Spiriva once daily 6. for cough may take benzonatate 100mg every 8 hours as needed; do not crush or chew 7. may use the triamcinolone cream in thin amounts to the rash in your armpits, behind the knees, etc - up to 3 times/day - for about 5-7 days then stop; avoid face & genitals 8. when you are ready to quit tobacco/vaping please talk with your family doctor and your lung doctor about things that can help you quit 9. I will reach out to allergy and ask that they see you to get you some allergy testing Follow-up - see separate section Return to [facility] if - -you have fevers over 100 degrees -you have worsening shortness of breath -you have chest pains or severe chest tightness -any other concerns It was our pleasure to care for you! -Brayden Pascual Coding Diagnoses Acute asthma exacerbation J45.901 Acute respiratory failure with hypoxia J96.01 Eosinophilia, unspecified type D72.10 Eosinophilia type: unspecified eosinophilia Ulcerative colitis K51.90 ADHD F90.9 Current every day vaping Z72.89
--- NOTE | 2025-05-19 13:08 | Electrocardiogram Report ---
Test Reason : Blood Pressure : */* mmHG Vent. Rate : 102 BPM Atrial Rate : 102 BPM P-R Int : 128 ms QRS Dur : 90 ms QT Int : 358 ms P-R-T Axes : 76 91 62 degrees QTcB Int : 466 ms Sinus tachycardia Rightward axis Borderline ECG When compared with ECG of 20-Apr-2025 12:04, No significant change was found Confirmed by Catrachito Garcia ([id number]) on 05/19/2025 1:07:53 PM Referred By: NO PCP Confirmed By: Catrachito Garcia
== END 2025-05-17 12:47 | disposition home or self-care (01) | DRG 202 ==
LOC: ED 15:13 → 2W 18:03